=== PATIENT | male | born 1945 | race Caucasian/White ===

== ENCOUNTER 2017-04-06 13:53 | Observation (INO) ==
--- NOTE | 2017-04-06 14:22 | Emergency Department Report ---
Chest Pain HPI - General Chief Complaint: Chest Pain Stated Complaint: cp Time Seen by Provider: 04/06/17 14:13 Source: patient, EMS Mode of arrival: EMS Limitations: no limitations - History of Present Illness HPI narrative: 72 YO WM who presents to ER for chest pain. Patient reports intermittent chest pain for over a week. This episode of chest pain started about 0400 this morning. It has been constant since that time. He describes it as pressure with intermittent sharp pains. He is also short of breath, dizzy, nauseated in association with chest pain. He was diaphoretic early this morning when he woke up with the chest pain. He took nitro x 2 at home which did not help the chest pain. EMS administered Fentanyl 200 micrograms IV en route which did take pain from down to 03/09. MD complaint: chest pain Occurred At: home Onset (ago): hour(s) (8) Time: 0400 Duration: constant Pain location: substernal, left chest Severity scale (1-10): 10 Quality: tightness - Related Data Home Medications Medication Instructions Recorded Confirmed Tamsulosin HCl [Flomax] 0.4 mg PO HS #0 01/15/11 04/06/17 Docusate Sodium [Colace] 100 mg PO BID #0 06/24/14 04/06/17 Pantoprazole Sodium 40 mg PO DAILY #0 06/27/14 04/06/17 Atorvastatin Calcium [Lipitor] 20 mg PO DAILY #0 11/24/14 04/06/17 Fluticasone/Salmeterol [Advair 1 puff ORAL INH RTBID #0 11/24/14 04/06/17 250-50 Diskus] Tiotropium [place] [Spiriva] 1 cap ORAL INH DAILY #0 11/24/14 04/06/17 Trazodone HCl 300 mg PO HS #0 11/24/14 04/06/17 Finasteride 5 mg PO DAILY #0 07/05/15 04/06/17 Sucralfate 1 g PO QID #0 07/05/15 04/06/17 Fluticasone Nasal [place] [Flonase] 2 spray EA NOSTRIL DAILY #0 11/20/15 04/06/17 Loratadine 10 mg PO ACB #0 03/06/16 04/06/17 Nitroglycerin [Nitrostat] 0.4 mg SL Q5MIN PRN #0 03/06/16 04/06/17 Buspirone HCl 20 mg PO BID #0 08/14/16 04/06/17 Meloxicam 15 mg PO DAILY #0 08/14/16 04/06/17 Tramadol HCl 50 mg PO Q6HR PRN #0 08/14/16 04/06/17 Furosemide 40 mg PO BID #0 09/07/16 04/06/17 Potassium Chloride 10 meq PO ACB #0 09/07/16 04/06/17 Albuterol Sulfate 2.5 mg AEROSOL BID 04/06/17 04/06/17 Aspirin [Adult Low Dose Aspirin EC] 81 mg PO DAILY 04/06/17 04/06/17 Doxycycline Monohydrate 100 mg PO BID 04/06/17 04/06/17 [Doxycycline Monohydrate] Ferrous Sulfate 325 mg PO HS 04/06/17 04/06/17 Fluoxetine HCl [Prozac] 80 mg PO DAILY 04/06/17 04/06/17 Gabapentin [Neurontin] 800 mg PO TID 04/06/17 04/06/17 Metformin HCl [Metformin HCl ER] 500 mg PO BID 04/06/17 04/06/17 Allergies Allergy/AdvReac Type Severity Reaction Status Date / Time adhesive Allergy Mild ALLERGIC Verified 04/06/17 14:17 CONTACT DERMATITIS aripiprazole Allergy Unknown HYPOTENSION Verified 04/06/17 14:17 niacin Allergy Unknown Verified 04/06/17 14:17 zolpidem [From Ambien] Allergy Unknown Verified 04/06/17 14:18 Review of Systems Constitutional: Denies: fever, chills, weakness Eyes: Denies: eye pain, eye discharge, vision change ENT: Denies: ear pain Cardiovascular: Reports: as per HPI, chest pain Respiratory: Reports: dyspnea Gastrointestinal: Reports: nausea. Denies: abdominal pain, vomiting, hematemesis Neurological: Denies: headache Endocrine: Reports: fatigue Hematological/Lymphatic: Reports: easy bruising Allergic/Immunologic: Denies: facial swelling, urticaria PFSH Patient Stated Medical History Macular Degeneration Yes Other HEENT Yes: cleft palate Congestive Heart Failure Yes Myocardial Infarction Yes Chronic Obstructive Pulmonary Yes Disease (COPD) Diabetes Mellitus Type 2 Yes Gastroesophageal Reflux Yes Disease Hx Benign Prostatic Yes Hyperplasia Hx Incontinence Yes Other Hematologic Yes: pe Sepsis Yes Depression Yes Hypertension COPD Diabetes mellitus Atrial fibrillation Coronary artery disease Peripheral artery disease Sleep apnea Spinal stenosis Diabetic gastroparesis Depression Aortic aneurysm Chronic back pain Bilateral pulmonary emboli benign prostatic hypertrophy Diabetic neuropathy Surgical History: Back surgery. Cholecystectomy. Hernia repair. Carpal tunnel repair. Bilateral total knee replacement. Peripheral artery stent placement Family History: CAD DM - Social History Smoking status: Former smoker Substance use type: does not use Housing: assisted living facility Household members: none Current occupational status: retired Current residence: Assisted Living Physical Exam - Limitations Limitations: no limitations - General General appearance: alert, in no apparent distress - Normal Exams: Head:: Normocephalic without trauma Eyes:: Pupils are PERRLA w/ EOMI, No scleral icterus Chest/Respirations:: Clear all myas, with good airflow, and symmetry bilaterally Cardiovascular:: Regular rate and rhythm, without murmur or gallop, Pulses 2+ all extremities, capillary refill, <2 seconds all extremities Abdomen:: Bowel sounds positive, soft, non-tender, non-distended, no hepatosplenomegaly, masses or bruits noted Musculoskeletal:: No tenderness, or deformity noted, good range of motion, all extremities Integumentary:: No rashes, hives Neurological:: Patient is alert, and oriented, cranial nerves, motor/sensory/ cerebellar, exams w/o gross deficits, to observation Psychiatric:: Patient exhibits, appropriate attention, emotion and affect Course Course Narrative: No improvement in chest discomfort after NTG x 2 After Fentanyl IV patient reports pain decreased to 3/10 - Consultations Consultation #1: [id number]: Paged Lakeshia Brady with Dr. Rivers Discussed case. Will place patient in OBS to rule out AMI. Medical Telemetry. Vital Signs Pulse Oximetry 94 04/06/17 13:53 Temperature 98.6 F 04/06/17 13:57 Pulse Rate 71 04/06/17 16:09 Respiratory Rate 31 H 04/06/17 16:09 Blood Pressure 126/66 04/06/17 16:09 Pulse Oximetry 95 04/06/17 16:09 Chest Pain - Lab Data Attestation: I reviewed the patient's lab results. Result diagrams: 04/06/17 14:46 04/06/17 14:46 Lab Results 04/06/17 04/06/17 04/06/17 Range/Units 14:46 14:46 14:46 WBC 8.1 (4.5-11.0) T/MM3 RBC 4.74 (4.50-5.90) M/MM3 Hgb 14.8 (13.5-17.5) GM/DL Hct 46.5 (41-53) % MCV 98.1 (80-100) UM3 MCH 31.2 (26-34) UUG MCHC 31.8 (31-37) GM/DL RDW Std Deviation 43.2 (36.9-50.2) FL Plt Count 193 (130-400) T/MM3 MPV 10.4 (9.4-12.4) UM3 Immature Gran % (Auto) 0.4 (0.0-0.5) % Neut % (Auto) 59.1 (33-66) % Lymph % (Auto) 25.6 (23-45) % [place] % (Auto) 9.5 H (0-9.0) % Eos % (Auto) 5.0 H (0-4) % Baso % (Auto) 0.4 (0-2) % Neut # 4.8 (1.8-7.7) T/MM3 Lymph # 2.1 (1-4.8) T/MM3 [place] # 0.8 (0-0.8) T/MM3 Eos # 0.4 (0-0.5) T/MM3 Baso # 0.0 (0-0.2) T/MM3 Abs Immat Gran (auto) 0.03 (0.00-0.03) T/MM3 INR 1.08 (0.99-1.21) Turbidity < 20 (0-20) Sodium 139 (134-144) MEQ/L Potassium 4.0 (3.6-5) MEQ/L Chloride 102 (98-107) MEQ/L Carbon Dioxide 30 (22-30) MEQ/L Anion Gap 7 (5-15) MEQ/L BUN 21.0 H (9-20) MG/DL Creatinine 1.1 (0.8-1.5) MG/DL GFR Calculation 66 BUN/Creatinine Ratio 19 (6-26) RATIO Glucose 143 H (75-110) MG/DL Calculated Osmolality 273 (261-280) MOSM/KG Calcium 9.2 (8.4-10.2) MG/DL Total Bilirubin 0.50 (0.20-1.30) MG/DL Icterus Index < 2 (0-7) AST 43 (17-59) U/L ALT 70 (21-72) U/L Alkaline Phosphatase 87 (38-126) U/L Troponin I 0.039 (0-0.12) ng/ml B-Natriuretic Peptide 204 H (0-175) pg/mL Total Protein 6.4 (6.3-8.2) G/DL Albumin 4.1 (3.5-5.0) G/DL Globulin 2.3 L (2.4-3.6) G/DL Albumin/Globulin Ratio 1.8 (1.1-2.2) RATIO Specimen Hemolysis < 15 (0-25) Ur Collection Type Urine Color (YELLOW) Urine Clarity Urine pH (5.0-8.0) Ur Specific [place] (1.015-1.025) Urine Protein (NEGATIVE) Urine Glucose (UA) (NEGATIVE) Urine Ketones (NEGATIVE) Urine Occult Blood (NEGATIVE) Urine Nitrate (NEGATIVE) Urine Bilirubin (NEGATIVE) Urine Urobilinogen (NORMAL) EU/DL Ur Leukocyte Esterase (NEGATIVE) Urinalysis Comment 04/06/17 Range/Units 15:20 WBC (4.5-11.0) T/MM3 RBC (4.50-5.90) M/MM3 Hgb (13.5-17.5) GM/DL Hct (41-53) % MCV (80-100) UM3 MCH (26-34) UUG MCHC (31-37) GM/DL RDW Std Deviation (36.9-50.2) FL Plt Count (130-400) T/MM3 MPV (9.4-12.4) UM3 Immature Gran % (Auto) (0.0-0.5) % Neut % (Auto) (33-66) % Lymph % (Auto) (23-45) % [place] % (Auto) (0-9.0) % Eos % (Auto) (0-4) % Baso % (Auto) (0-2) % Neut # (1.8-7.7) T/MM3 Lymph # (1-4.8) T/MM3 [place] # (0-0.8) T/MM3 Eos # (0-0.5) T/MM3 Baso # (0-0.2) T/MM3 Abs Immat Gran (auto) (0.00-0.03) T/MM3 INR (0.99-1.21) Turbidity (0-20) Sodium (134-144) MEQ/L Potassium (3.6-5) MEQ/L Chloride (98-107) MEQ/L Carbon Dioxide (22-30) MEQ/L Anion Gap (5-15) MEQ/L BUN (9-20) MG/DL Creatinine (0.8-1.5) MG/DL GFR Calculation BUN/Creatinine Ratio (6-26) RATIO Glucose (75-110) MG/DL Calculated Osmolality (261-280) MOSM/KG Calcium (8.4-10.2) MG/DL Total Bilirubin (0.20-1.30) MG/DL Icterus Index (0-7) AST (17-59) U/L ALT (21-72) U/L Alkaline Phosphatase (38-126) U/L Troponin I (0-0.12) ng/ml B-Natriuretic Peptide (0-175) pg/mL Total Protein (6.3-8.2) G/DL Albumin (3.5-5.0) G/DL Globulin (2.4-3.6) G/DL Albumin/Globulin Ratio (1.1-2.2) RATIO Specimen Hemolysis (0-25) Ur Collection Type Urine, clean catch Urine Color Yellow (YELLOW) Urine Clarity Clear Urine pH 5.5 (5.0-8.0) Ur Specific [place] 1.020 (1.015-1.025) Urine Protein Trace A (NEGATIVE) Urine Glucose (UA) Negative (NEGATIVE) Urine Ketones Trace A (NEGATIVE) Urine Occult Blood Negative (NEGATIVE) Urine Nitrate Negative (NEGATIVE) Urine Bilirubin Negative (NEGATIVE) Urine Urobilinogen 0.2 (NORMAL) EU/DL Ur Leukocyte Esterase Negative (NEGATIVE) Urinalysis Comment Microscopic not ind. - Radiology Data Attestation: I reviewed the patient's radiology results. - EKG Data EKG #1 EKG attestation: Yes: I reviewed and interpreted this EKG. Rate: normal Rhythm: NSR, PVC's [place]/QRS: normal Interpretation: nonspecific ST-T wave changes Disposition Clinical Impression: Chest pain Qualifiers: Chest pain type: unspecified Qualified Code(s): R07.9 - Chest pain, unspecified Disposition: 02 To OBS NM Condition: Improved Prescriptions: No Action Tamsulosin HCl [Flomax] 0.4 mg PO HS #0 Docusate Sodium [Colace] 100 mg PO BID #0 Pantoprazole Sodium 40 mg PO DAILY #0 Trazodone HCl 300 mg PO HS #0 Fluticasone/Salmeterol [Advair 250-50 Diskus] 1 puff ORAL INH RTBID #0 Atorvastatin Calcium [Lipitor] 20 mg PO DAILY #0 Sucralfate 1 g PO QID #0 Loratadine 10 mg PO ACB #0 Tramadol HCl 50 mg PO Q6HR PRN #0 PRN Reason: Pain Meloxicam 15 mg PO DAILY #0 Potassium Chloride 10 meq PO ACB #0 Ferrous Sulfate 325 mg PO HS Doxycycline Monohydrate [Doxycycline Monohydrate] 100 mg PO BID Albuterol Sulfate 2.5 mg AEROSOL BID Fluoxetine HCl [Prozac] 80 mg PO DAILY Tiotropium [place] [Spiriva] 1 cap ORAL INH DAILY #0 Finasteride 5 mg PO DAILY #0 Fluticasone Nasal [place] [Flonase] 2 spray EA NOSTRIL DAILY #0 Nitroglycerin [Nitrostat] 0.4 mg SL Q5MIN PRN #0 PRN Reason: CHEST PAIN Buspirone HCl 20 mg PO BID #0 Furosemide 40 mg PO BID #0 Metformin HCl [Metformin HCl ER] 500 mg PO BID Gabapentin [Neurontin] 800 mg PO TID Aspirin [Adult Low Dose Aspirin EC] 81 mg PO DAILY Referrals: Vasquez Sánchez MD [Family Provider] - Time of Disposition: 15:40 - Seen By: physician
[2017-04-06] MEDS ORDERED: ONDANSETRON 4 MG/2 ML INJECTION IVP ONE (14:25)
[2017-04-06] MEDS ORDERED: FentaNYL 100 MCG/2 ML INJECTION IVP ONE (14:25)
[2017-04-06] MEDS ORDERED: ASPIRIN 81 MG CHEWABLE TABLET PO ONE (14:25)
[2017-04-06] MEDS: NITROGLYCERIN 0.4 MG SUBLINGUAL TABLET SL PRN ×2 (14:44→14:50)
[2017-04-06] MEDS: SALINE FLUSH 10ml SYRINGE IV PRN ×3 (14:50→22:29)
[2017-04-06] MEDS ORDERED: ENOXAPARIN 40 MG/0.4 ML INJECTION SQ ONE (16:42)
[2017-04-06] MEDS ORDERED: TRAMADOL 50 MG TABLET PO PRN (16:42)
[2017-04-06] MEDS ORDERED: NITROGLYCERIN 0.4 MG SUBLINGUAL TABLET SL PRN (16:42)
[2017-04-06 16:45] VITALS: BMI 29.9
[2017-04-06] MEDS: SUCRALFATE 1 GM TABLET PO SCH ×2 (17:13→22:25)
[2017-04-06] MEDS: MORPHINE SULFATE 10 MG SYRINGE IVP PRN ×2 (18:15→22:39)
[2017-04-06] MEDS ORDERED: NON-FORMULARY MEDICATION 1 EACH EACH (Metformin Hcl [Metformin Hcl Er] 500 MG) PO SCH (21:00)
[2017-04-06] MEDS ORDERED: FALL RISK - PHARMACY CONSULT MC PRN (21:04)
[2017-04-06] MEDS ORDERED: TAMSULOSIN 0.4 MG CAPSULE PO SCH (22:00)
[2017-04-06] MEDS ORDERED: FERROUS SULFATE 324 MG TABLET PO SCH (22:00)
[2017-04-06] MEDS ORDERED: TRAZODONE 100 MG TABLET PO SCH (22:00)
[2017-04-06] MEDS: BUSPIRONE 10 MG TABLET PO SCH (22:25)
[2017-04-06] MEDS: DOCUSATE SODIUM 100 MG CAPSULE PO SCH (22:26)
[2017-04-06] MEDS: GABAPENTIN 800 MG TABLET PO SCH (22:27)
[2017-04-06] MEDS: FUROSEMIDE 40 MG TABLET PO SCH (22:43)
[2017-04-06] MEDS: ALBUTEROL 2.5mg/3ml (0.083%) NEB AEROSOL SCH (23:16)
[2017-04-07] MEDS ORDERED: LORATADINE 10 MG TABLET PO SCH (06:30)
[2017-04-07 08:35] VITALS: BP 131/69; PULSE 55; TEMP 96.9; O2SAT 98
[2017-04-07] MEDS ORDERED: FLUTICASONE NASAL SPRAY 50mcg EA NOSTRIL SCH (09:00)
[2017-04-07] MEDS ORDERED: TIOTROPIUM 18mcg/cap HANDIHALER ORAL INH SCH (09:00)
[2017-04-07] MEDS ORDERED: MELOXICAM 15 MG TABLET PO SCH (09:00)
[2017-04-07] MEDS ORDERED: FINASTERIDE 5 MG TABLET PO SCH (09:00)
[2017-04-07] MEDS ORDERED: ASPIRIN *EC* 81 MG TABLET PO SCH (09:00)
[2017-04-07] MEDS ORDERED: FLUoxetine 20 MG CAPSULE PO SCH (09:00)
--- NOTE | 2017-04-07 09:36 | XRay Report ---
Indication: CHEST PAIN PROCEDURE: XR chest 1V: Encounter: Initial Comparison: December 06, 2016 Findings: The lungs are stable in appearance without new focal airspace consolidation. There is no pleural effusion or pneumothorax. The heart size, pulmonary vascularity and mediastinal contours are unchanged. IMPRESSION: Stable appearance of the chest without acute cardiopulmonary disease. .
--- NOTE | 2017-04-07 09:37 | Cardiology History & Physical ---
History of Present Illness Chief complaint: chest pain HPI: Chavez is a 72 year old male who is well known to Dr. Rivers with a history of CAD, dilated cardiomyopathy, aortic ectasia, PAD, HTN, HLD who presented to ED for chest pain. He reports intermittent chest pain for over a week with this episode of chest pain started about 0400 yesterday morning. He described the pain as pressure with intermittent sharp pains. He also reports shortness of breath, dizziness, and nausea in association with chest pain. He reports being diaphoretic early when he woke up with the chest pain. He took nitro x 2 at home which did not help the chest pain. EMS administered Fentanyl 200 micrograms IV en route to the ED which did take pain from 07/09 down to . Chavez was last seen by Dr. Rivers on March 20, 2017 in our office at which time he brought his BP diary with him. His diary had several instances where his BP was lower than ideal and Imdur was discontinued. He was scheduled at that time for a stress test which will take place this 04/11/17. He is examined in his room on Medical. He is currently chest pain free, although he does report having some after arrival to his room last night. He states he was given morphine which relieved the pain. He reports feeling short of air when the pain is present but denies dyspnea at this time. He denies N/V or diaphoresis. He reports he has a frequent productive cough and states he has been using his inhalers as prescribed for his lung disease. Nav gaxiola also reports stools that are more loose than usual but not diarrhea. Otherwise he denies recent illness, no fever, chills, sore throat, or dysuria. Review of Systems - Constitutional Constitutional: Present: fatigue, weakness. Absent: chills, fever(s) - EENMT Eyes: Absent: change in vision Balance: Absent: vertigo Mouth/Throat: Absent: sore throat - Cardiovascular Cardiovascular: Present: chest pain, dyspnea on exertion. Absent: palpitations , syncope Vascular: Absent: pedal edema - Respiratory Respiratory: Present: cough, dyspnea on exertion, excessive phlegm production. Absent: dyspnea - Gastrointestinal Gastrointestinal: Absent: diarrhea, nausea, vomiting - Genitourinary Genitourinary: Absent: dysuria - Musculoskeletal Musculoskeletal: Present: muscle weakness, myalgias - Integumentary/Breasts Integumentary: Absent: rash - Neurological Neurological: Present: dizziness PFSH Patient Stated Medical History Macular Degeneration Yes Other HEENT Yes: cleft palate Coronary artery disease Yes Hypertension Yes Hyperlipidemia Yes Congestive Heart Failure Yes Myocardial Infarction Yes Peripheral vascular disease Yes Chronic Obstructive Pulmonary Yes Disease (COPD) Diabetes Mellitus Type 2 Yes Gastroesophageal Reflux Yes Disease Hx Benign Prostatic Yes Hyperplasia Hx Incontinence Yes: wears a brief Other Hematologic Yes: pe Spinal Stenosis Yes Sepsis Yes Shingles Yes Depression Yes Surgical History: Carotid endarterectomy. Peripheral artery stent placement. Lumbar Back surgery. Cholecystectomy. Hernia repair. Carpal tunnel repair. Bilateral total knee replacement Family History: CAD- Mother and Father - not cause of in either - Social History Smoking status: Former smoker Substance use type: does not use Alcohol intake frequency: does not drink Housing: assisted living facility Household members: none Current residence: Apartment/Private Home Medications Home Medications Medication Instructions Recorded Confirmed Type Tamsulosin HCl [Flomax] 0.4 mg PO HS #0 01/15/11 04/06/17 History Docusate Sodium [Colace] 100 mg PO BID #0 06/24/14 04/06/17 History Pantoprazole Sodium 40 mg PO DAILY #0 06/27/14 04/06/17 History Atorvastatin Calcium [Lipitor] 20 mg PO DAILY #0 11/24/14 04/06/17 History Fluticasone/Salmeterol [Advair 1 puff ORAL INH RTBID #0 11/24/14 04/06/17 History 250-50 Diskus] Tiotropium [place] [Spiriva] 1 cap ORAL INH DAILY #0 11/24/14 04/06/17 History Trazodone HCl 300 mg PO HS #0 11/24/14 04/06/17 History Finasteride 5 mg PO DAILY #0 07/05/15 04/06/17 History Sucralfate 1 g PO QID #0 07/05/15 04/06/17 History Fluticasone Nasal [place] [Flonase] 2 spray EA NOSTRIL DAILY #0 11/20/15 History Loratadine 10 mg PO ACB #0 03/06/16 04/06/17 History Nitroglycerin [Nitrostat] 0.4 mg SL Q5MIN PRN #0 03/06/16 04/06/17 History Buspirone HCl 20 mg PO BID #0 08/14/16 04/06/17 History Meloxicam 15 mg PO DAILY #0 08/14/16 04/06/17 History Tramadol HCl 50 mg PO Q6HR PRN #0 08/14/16 04/06/17 History Furosemide 40 mg PO BID #0 09/07/16 04/06/17 History Potassium Chloride 10 meq PO ACB #0 09/07/16 04/06/17 History Albuterol Sulfate 2.5 mg AEROSOL BID 04/06/17 04/06/17 History Aspirin [Adult Low Dose Aspirin EC] 81 mg PO DAILY 04/06/17 04/06/17 History Doxycycline Monohydrate 100 mg PO BID 04/06/17 04/06/17 History Ferrous Sulfate 325 mg PO HS 04/06/17 04/06/17 History Fluoxetine HCl [Prozac] 80 mg PO DAILY 04/06/17 04/06/17 History Gabapentin [Neurontin] 800 mg PO TID 04/06/17 04/06/17 History Metformin HCl [Metformin HCl ER] 500 mg PO BID 04/06/17 04/06/17 History Allergies Allergy/AdvReac Type Severity Reaction Status Date / Time adhesive Allergy Mild ALLERGIC Verified 04/06/17 14:17 CONTACT DERMATITIS aripiprazole Allergy Unknown HYPOTENSION Verified 04/06/17 14:17 niacin Allergy Unknown Verified 04/06/17 14:17 zolpidem [From Ambien] Allergy Unknown Verified 04/06/17 14:18 Exam Vital signs: Temperature 96.9 F 04/07/17 08:00 Pulse Rate 55 L 04/07/17 08:00 Respiratory Rate 18 04/07/17 08:00 Blood Pressure 131/69 04/07/17 08:00 Pulse Oximetry 98 04/07/17 08:00 Oxygen Delivery Method Nasal Cannula Oxygen Flow Rate 4 - Constitutional no acute distress, obese, cooperative - Routine HEENT Exam ENT: Present: mucous membranes moist - Routine Neck Exam Absent: JVD, carotid bruit - Routine Chest/Breast/Axilla Exam Chest wall: Absent: tenderness - Routine Respiratory Exam Present: CTA bilaterally. Absent: rales, wheezes - Routine Cardiovascular Exam Present: RRR, S1, S2, bradycardia. Absent: JVD - Routine Abdominal Exam Present: soft, normoactive bowel sounds - Routine Extremities Exam Present: no edema - Routine Skin Exam Present: intact - Routine Neurological Exam Present: alert, oriented X3 - Routine Psychiatric Exam Present: normal affect, normal thought process Results 04/07/17 03:17 04/07/17 03:17 Cardiac Enzymes 04/06/17 04/07/17 04/07/17 Range/Units 20:56 03:17 08:42 Troponin I 0.051 0.053 0.044 (0-0.12) ng/ml CBC 04/07/17 Range/Units 03:17 WBC 7.2 (4.5-11.0) T/MM3 RBC 4.53 (4.50-5.90) M/MM3 Hgb 14.2 (13.5-17.5) GM/DL Hct 45.2 (41-53) % Plt Count 168 (130-400) T/MM3 Neut # 3.7 (1.8-7.7) T/MM3 Lymph # 2.2 (1-4.8) T/MM3 [place] # 0.7 (0-0.8) T/MM3 Eos # 0.5 (0-0.5) T/MM3 Baso # 0.0 (0-0.2) T/MM3 Comprehensive Metabolic Panel 04/07/17 Range/Units 03:17 Sodium 141 (134-144) MEQ/L Potassium 3.6 (3.6-5) MEQ/L Chloride 103 (98-107) MEQ/L Carbon Dioxide 31 H (22-30) MEQ/L BUN 23.0 H (9-20) MG/DL Creatinine 1.1 (0.8-1.5) MG/DL Glucose 144 H (75-110) MG/DL Calcium 8.8 (8.4-10.2) MG/DL Intake and Output 04/06/17 04/07/17 04/07/17 22:59 06:59 14:59 Intake Total 170 / 170 360 / 360 Output Total 550 / 550 Balance 170 / 170 -190 / -190 Intake: Oral 170 / 170 360 / 360 Output: Urine 550 / 550 Other: # Incontinent Voids 1 Weight 233 lb 3.985 oz Laboratory Results - last 48 hr 04/06/17 04/06/17 04/06/17 14:46 14:46 14:46 WBC 8.1 RBC 4.74 Hgb 14.8 Hct 46.5 MCV 98.1 MCH 31.2 MCHC 31.8 RDW Std Deviation 43.2 Plt Count 193 MPV 10.4 Immature Gran % (Auto) 0.4 Neut % (Auto) 59.1 Lymph % (Auto) 25.6 [place] % (Auto) 9.5 H Eos % (Auto) 5.0 H Baso % (Auto) 0.4 Neut # 4.8 Lymph # 2.1 [place] # 0.8 Eos # 0.4 Baso # 0.0 Abs Immat Gran (auto) 0.03 INR 1.08 Turbidity < 20 Sodium 139 Potassium 4.0 Chloride 102 Carbon Dioxide 30 Anion Gap 7 BUN 21.0 H Creatinine 1.1 GFR Calculation 66 BUN/Creatinine Ratio 19 Glucose 143 H Calculated Osmolality 273 Calcium 9.2 Total Bilirubin 0.50 Icterus Index < 2 AST 43 ALT 70 Alkaline Phosphatase 87 Troponin I 0.039 B-Natriuretic Peptide 204 H Total Protein 6.4 Albumin 4.1 Globulin 2.3 L Albumin/Globulin Ratio 1.8 Specimen Hemolysis < 15 Ur Collection Type Urine Color Urine Clarity Urine pH Ur Specific [place] Urine Protein Urine Glucose (UA) Urine Ketones Urine Occult Blood Urine Nitrate Urine Bilirubin Urine Urobilinogen Ur Leukocyte Esterase Urinalysis Comment 04/06/17 04/06/17 04/07/17 15:20 20:56 03:17 WBC RBC Hgb Hct MCV MCH MCHC RDW Std Deviation Plt Count MPV Immature Gran % (Auto) Neut % (Auto) Lymph % (Auto) [place] % (Auto) Eos % (Auto) Baso % (Auto) Neut # Lymph # [place] # Eos # Baso # Abs Immat Gran (auto) INR Turbidity < 20 Sodium 141 Potassium 3.6 Chloride 103 Carbon Dioxide 31 H Anion Gap 7 BUN 23.0 H Creatinine 1.1 GFR Calculation 66 BUN/Creatinine Ratio 21 Glucose 144 H Calculated Osmolality 278 Calcium 8.8 Total Bilirubin Icterus Index < 2 AST ALT Alkaline Phosphatase Troponin I 0.051 0.053 B-Natriuretic Peptide Total Protein Albumin Globulin Albumin/Globulin Ratio Specimen Hemolysis < 15 < 15 Ur Collection Type Urine, clean catch Urine Color Yellow Urine Clarity Clear Urine pH 5.5 Ur Specific [place] 1.020 Urine Protein Trace A Urine Glucose (UA) Negative Urine Ketones Trace A Urine Occult Blood Negative Urine Nitrate Negative Urine Bilirubin Negative Urine Urobilinogen 0.2 Ur Leukocyte Esterase Negative Urinalysis Comment Microscopic not ind. 04/07/17 04/07/17 03:17 08:42 WBC 7.2 RBC 4.53 Hgb 14.2 Hct 45.2 MCV 99.8 MCH 31.3 MCHC 31.4 RDW Std Deviation 44.0 Plt Count 168 MPV 10.4 Immature Gran % (Auto) 0.4 Neut % (Auto) 52.0 Lymph % (Auto) 31.0 [place] % (Auto) 9.4 H Eos % (Auto) 6.8 H Baso % (Auto) 0.4 Neut # 3.7 Lymph # 2.2 [place] # 0.7 Eos # 0.5 Baso # 0.0 Abs Immat Gran (auto) 0.03 INR Turbidity Sodium Potassium Chloride Carbon Dioxide Anion Gap BUN Creatinine GFR Calculation BUN/Creatinine Ratio Glucose Calculated Osmolality Calcium Total Bilirubin Icterus Index AST ALT Alkaline Phosphatase Troponin I 0.044 B-Natriuretic Peptide Total Protein Albumin Globulin Albumin/Globulin Ratio Specimen Hemolysis < 15 Ur Collection Type Urine Color Urine Clarity Urine pH Ur Specific [place] Urine Protein Urine Glucose (UA) Urine Ketones Urine Occult Blood Urine Nitrate Urine Bilirubin Urine Urobilinogen Ur Leukocyte Esterase Urinalysis Comment - Imaging and Cardiology EKG results: image reviewed EKG interpretations - EKG EKG results cardiology: sinus rhythm EKG shows: bradycardia - Blocks, axis, hypertrophy, ST abn Repolarization changes or abnormalities: nonspecific abnormality, ST segment, and/or T wave Hospital Course This is a general summary of the patient's hospital course. For more details refer to the complete medical record. Assessment and Plan (1) Precordial pain Problem details: Acute on chronic Status: Acute Anterior chest pressure, denies radiation, associated with SOA, nausea and diaphoresis. Patient was taken off of Imdur at last clinic appointment 03/20/17 due to hypotension. Serial troponin levels were negative, serial EKGs without ischemic changes. Scheduled for a Adenosine stress test on (2) Atherosclerotic heart disease of [place] coronary artery without angina pectoris Status: Chronic Scheduled for a Adenosine stress test on (3) Dilated cardiomyopathy Status: Chronic Chronic, will continue current medical therapy, routine monitoring (4) Aortic ectasia Status: Chronic Chronic, routine monitoring (5) Atherosclerosis of [place] artery of both lower extremities Status: Chronic continue risk management (6) Essential (primary) hypertension Status: Chronic Chronic, will continue current medical therapy, routine monitoring. prevent dehydration (7) Mixed hyperlipidemia Status: Acute Chronic, will continue current medical therapy - Attestation Attestation Narrative: 04/10/17 13:15 Recommendation After examining the patient I agree with the above assessment. I am involved in the formulation of the patient's plan of care. Sepsis Assessment - Evaluation Sepsis screening result: No Definite Risk Addendum entered and electronically signed by Lakeshia Brady APRN 04/07/17 10: 42: I examined the patient and discussed the patient with Dr. Rivers, together we agreed on the patient's plan of care.
[2017-04-07] MEDS: ALBUTEROL 2.5mg/3ml (0.083%) NEB AEROSOL SCH (09:38)
[2017-04-07] MEDS: DOCUSATE SODIUM 100 MG CAPSULE PO SCH (10:07)
[2017-04-07] MEDS: GABAPENTIN 800 MG TABLET PO SCH (10:08)
--- NOTE | 2017-04-07 10:08 | Discharge Summary ---
<Lakeshia Brady - Last Filed: 04/07/17 10:04> Discharge Information Date of admission: 04/06/17 16:16 Attending Physician: Ted Rivers MD Primary care physician: Vasquez Sánchez MD - Discharge Diagnosis (1) Precordial pain Problem Details: Acute on chronic Status: Acute (2) Atherosclerotic heart disease of [place] coronary artery without angina pectoris Status: Chronic (3) Dilated cardiomyopathy Status: Chronic (4) Aortic ectasia Status: Chronic (5) Atherosclerosis of [place] artery of both lower extremities Status: Chronic (6) Essential (primary) hypertension Status: Chronic (7) Mixed hyperlipidemia Status: Acute - Laboratory Labs: 04/07/17 03:17 04/07/17 03:17 History of Present Illness HPI: Chavez is a 72 year old male who is well known to Dr. Rivers with a history of CAD, dilated cardiomyopathy, aortic ectasia, PAD, HTN, HLD who presented to ED for chest pain. He reports intermittent chest pain for over a week with this episode of chest pain started about 0400 yesterday morning. He described the pain as pressure with intermittent sharp pains. He also reports shortness of breath, dizziness, and nausea in association with chest pain. He reports being diaphoretic early when he woke up with the chest pain. He took nitro x 2 at home which did not help the chest pain. EMS administered Fentanyl 200 micrograms IV en route to the ED which did take pain from 10/10 down to 6/ 10. Chavez was last seen by Dr. Rivers on March 20, 2017 in our office at which time he brought his BP diary with him. His diary had several instances where his BP was lower than ideal and Imdur was discontinued. He was scheduled at that time for a stress test which will take place this 04/11/17. He is examined in his room on Medical. He is currently chest pain free, although he does report having some after arrival to his room last night. He states he was given morphine which relieved the pain. He reports feeling short of air when the pain is present but denies dyspnea at this time. He denies N/V or diaphoresis. He reports he has a frequent productive cough and states he has been using his inhalers as prescribed for his lung disease. H e also reports stools that are more loose than usual but not diarrhea. Otherwise he denies recent illness, no fever, chills, sore throat, or dysuria. Hospital Course This is a general summary of the patient's hospital course. For more details refer to the complete medical record. Exam Vital signs: Temperature 96.9 F 04/07/17 08:00 Pulse Rate 55 L 04/07/17 08:00 Respiratory Rate 22 04/07/17 09:39 Blood Pressure 131/69 04/07/17 08:00 Pulse Oximetry 98 04/07/17 09:39 Oxygen Delivery Method Nasal Cannula Oxygen Flow Rate 4 Results 04/07/17 03:17 04/07/17 03:17 Cardiac Enzymes 04/06/17 04/07/17 04/07/17 Range/Units 20:56 03:17 08:42 Troponin I 0.051 0.053 0.044 (0-0.12) ng/ml CBC 04/07/17 Range/Units 03:17 WBC 7.2 (4.5-11.0) T/MM3 RBC 4.53 (4.50-5.90) M/MM3 Hgb 14.2 (13.5-17.5) GM/DL Hct 45.2 (41-53) % Plt Count 168 (130-400) T/MM3 Neut # 3.7 (1.8-7.7) T/MM3 Lymph # 2.2 (1-4.8) T/MM3 [place] # 0.7 (0-0.8) T/MM3 Eos # 0.5 (0-0.5) T/MM3 Baso # 0.0 (0-0.2) T/MM3 Comprehensive Metabolic Panel 04/07/17 Range/Units 03:17 Sodium 141 (134-144) MEQ/L Potassium 3.6 (3.6-5) MEQ/L Chloride 103 (98-107) MEQ/L Carbon Dioxide 31 H (22-30) MEQ/L BUN 23.0 H (9-20) MG/DL Creatinine 1.1 (0.8-1.5) MG/DL Glucose 144 H (75-110) MG/DL Calcium 8.8 (8.4-10.2) MG/DL Intake and Output 04/06/17 04/07/17 04/07/17 22:59 06:59 14:59 Intake Total 170 / 170 360 / 360 Output Total 550 / 550 Balance 170 / 170 -190 / -190 Intake: Oral 170 / 170 360 / 360 Output: Urine 550 / 550 Other: # Incontinent Voids 1 Weight 233 lb 3.985 oz Discharge Plan - Med Rec/Dispo Referrals/Follow Up: Ted Rivers MD [Physician] - 04/11/17 11:30 am Additional Instructions: Adenosine stress test on 04/11/17 at 11:30. If additional chest pain reoccurs, sit down, check your BP and if greater than 120 systolic take SL nitro every 5 minutes up to X3. Prescriptions: Continue Tamsulosin HCl [Flomax] 0.4 mg PO HS #0 Docusate Sodium [Colace] 100 mg PO BID #0 Pantoprazole Sodium 40 mg PO DAILY #0 Trazodone HCl 300 mg PO HS #0 Fluticasone/Salmeterol [Advair 250-50 Diskus] 1 puff ORAL INH RTBID #0 Atorvastatin Calcium [Lipitor] 20 mg PO DAILY #0 Sucralfate 1 g PO QID #0 Loratadine 10 mg PO ACB #0 Tramadol HCl 50 mg PO Q6HR PRN #0 PRN Reason: Pain Meloxicam 15 mg PO DAILY #0 Potassium Chloride 10 meq PO ACB #0 Ferrous Sulfate 325 mg PO HS Doxycycline Monohydrate 100 mg PO BID Albuterol Sulfate 2.5 mg AEROSOL BID Fluoxetine HCl [Prozac] 80 mg PO DAILY Tiotropium [place] [Spiriva] 1 cap ORAL INH DAILY #0 Finasteride 5 mg PO DAILY #0 Fluticasone Nasal [place] [Flonase] 2 spray EA NOSTRIL DAILY #0 Nitroglycerin [Nitrostat] 0.4 mg SL Q5MIN PRN #0 PRN Reason: CHEST PAIN Buspirone HCl 20 mg PO BID #0 Furosemide 40 mg PO BID #0 Metformin HCl [Metformin HCl ER] 500 mg PO BID Gabapentin [Neurontin] 800 mg PO TID Aspirin [Adult Low Dose Aspirin EC] 81 mg PO DAILY - Disposition 01 Discharged Home, Self-Care <Ted Rivers - Last Filed: 04/10/17 13:19> Discharge Information Date of admission: 04/06/17 16:16 Attending Physician: Ted Rivers MD Primary care physician: Vasquez Sánchez MD - Discharge Diagnosis (1) Precordial pain Problem Details: Acute on chronic Status: Acute (2) Atherosclerotic heart disease of [place] coronary artery without angina pectoris Status: Chronic (3) Dilated cardiomyopathy Status: Chronic (4) Aortic ectasia Status: Chronic (5) Atherosclerosis of [place] artery of both lower extremities Status: Chronic (6) Essential (primary) hypertension Status: Chronic (7) Mixed hyperlipidemia Status: Acute - Laboratory Labs: 04/07/17 03:17 04/07/17 03:17 Hospital Course This is a general summary of the patient's hospital course. For more details refer to the complete medical record. Exam Vital signs: Temperature 96.9 F 04/07/17 08:00 Pulse Rate 55 L 04/07/17 08:00 Respiratory Rate 18 04/07/17 10:24 Blood Pressure 131/69 04/07/17 08:00 Pulse Oximetry 98 04/07/17 09:39 Oxygen Delivery Method Nasal Cannula Oxygen Flow Rate 4 Results 04/07/17 03:17 04/07/17 03:17 Discharge Plan - Med Rec/Dispo - Attestation Attestation Narrative: 04/10/17 13:19 Recommendation After examining the patient I agree with the above assessment. I am involved in the formulation of the patient's plan of care.
[2017-04-07] MEDS: FUROSEMIDE 40 MG TABLET PO SCH (10:11)
[2017-04-07 10:25] VITALS: RESP 18
[2017-04-07] MEDS: BUSPIRONE 10 MG TABLET PO SCH (10:27)
[2017-04-07] MEDS ORDERED: SUCRALFATE 1 GM TABLET PO SCH (11:30)
[2017-04-07] MEDS ORDERED: ATORVASTATIN 20 MG TABLET PO SCH (22:00)
[2017-04-08] MEDS ORDERED: PANTOPRAZOLE 40 MG TABLET PO SCH (06:30)
== END 2017-04-07 11:15 | disposition home or self-care (01) ==
LOC: MED 13:53 → ED 13:53 → MED 16:30
PROVIDERS: ADMIT Internal Medicine Cardiovascular Disease; ATTEND Internal Medicine Cardiovascular Disease

== ENCOUNTER 2017-08-23 08:44 | Inpatient (IN) ==
--- NOTE | 2017-08-23 09:10 | Emergency Department Report ---
Fall HPI - General Chief Complaint: Fall Stated Complaint: fell last night found this am Time Seen by Provider: 08/23/17 09:00 - History of Present Illness HPI Narrative: 72-year-old male brought in by EMS. Patient fell yesterday, does not remember. He does recommend having chest pain and getting up to go to the bathroom. At some point he fell after that and when he came to, he had vomited. He was too weak to get up and lay on the floor during the entire night. He does have a little dog that lay beside him during the night. Otherwise denied any blanket to keep warm. He was wearing some hands a T-shirt and says he did not get cold during the night. He normally wears 4 L of oxygen nasal cannula, but required nonrebreather on the way in with EMS to maintain his sats. He is coughing. He states he has had 3 "tiny" heart attacks. Has not had any bypass surgery. He has had stent placement lower torso. - Related Data Home Medications Medication Instructions Recorded Confirmed Tamsulosin HCl [Flomax] 0.4 mg PO HS #0 01/15/11 05/15/17 Docusate Sodium [Colace] 100 mg PO BID #0 06/24/14 05/15/17 Pantoprazole Sodium 40 mg PO DAILY #0 06/27/14 05/15/17 Atorvastatin Calcium [Lipitor] 20 mg PO DAILY #0 11/24/14 05/15/17 Fluticasone/Salmeterol [Advair 1 puff ORAL INH RTBID #0 11/24/14 05/15/17 250-50 Diskus] Tiotropium [place] [Spiriva] 1 cap ORAL INH DAILY #0 11/24/14 05/15/17 Trazodone HCl 300 mg PO HS #0 11/24/14 05/15/17 Finasteride 5 mg PO DAILY #0 07/05/15 05/15/17 Sucralfate 1 g PO QID #0 07/05/15 05/15/17 Fluticasone Nasal [place] [Flonase] 2 spray EA NOSTRIL DAILY #0 11/20/15 05/15/17 Loratadine 10 mg PO ACB #0 03/06/16 05/15/17 Nitroglycerin [Nitrostat] 0.4 mg SL Q5MIN PRN #0 03/06/16 05/15/17 Buspirone HCl 20 mg PO BID #0 08/14/16 05/15/17 Meloxicam 15 mg PO DAILY #0 08/14/16 05/15/17 Tramadol HCl 50 mg PO Q6HR PRN #0 08/14/16 05/15/17 Potassium Chloride 10 meq PO ACB #0 09/07/16 05/15/17 Aspirin [Adult Low Dose Aspirin EC] 81 mg PO DAILY 04/06/17 05/15/17 Doxycycline Monohydrate 100 mg PO BID 04/06/17 05/15/17 Ferrous Sulfate 325 mg PO HS 04/06/17 05/15/17 Fluoxetine HCl [Prozac] 80 mg PO DAILY 04/06/17 05/15/17 Metformin HCl [Metformin HCl ER] 500 mg PO BID 04/06/17 05/15/17 Furosemide [Lasix] 80 mg PO BID 05/15/17 05/15/17 Nystatin 1 applic TOP BID 05/15/17 05/15/17 Previous Rx's Medication Instructions Recorded Albuterol Sulfate 2.5 mg AEROSOL Q4H #30 vial.neb 05/15/17 Azithromycin [Zithromax] 1 tab PO DAILY #4 tab 05/15/17 PredniSONE [Deltasone] 40 mg PO WB #10 tab 05/15/17 Lyrica (pregabalin) 150 mg capsule 150 mg PO BID #60 cap 06/28/17 baclofen 10 mg tablet 10 mg PO Q8H PRN #90 tab 07/09/17 Allergies Allergy/AdvReac Type Severity Reaction Status Date / Time adhesive Allergy Mild ALLERGIC Verified 07/30/17 08:33 CONTACT DERMATITIS aripiprazole Allergy Unknown HYPOTENSION Verified 07/30/17 08:33 niacin Allergy Unknown Verified 07/30/17 08:33 zolpidem [From Ambien] Allergy Unknown Verified 07/30/17 08:33 Review of Systems All systems: reviewed and negative except as stated PFSH Patient Stated Medical History Macular Degeneration Yes Other HEENT Yes: cleft palate Congestive Heart Failure Yes Myocardial Infarction Yes Chronic Obstructive Pulmonary Yes Disease (COPD) Diabetes Mellitus Type 2 Yes Gastroesophageal Reflux Yes Disease Hx Benign Prostatic Yes Hyperplasia Hx Incontinence Yes: wears a brief Other Hematologic Yes: pe Sepsis Yes Shingles Yes Depression Yes Clinic Medical History (Last Reviewed 07/30/17 @ 08:35 by Marily Altamirano RN) Dermatitis (Acute Medical) Unclear etiology. Chest pain (Acute Medical) Precordial pain (Acute Medical) Acute on chronic Atherosclerotic heart disease of [place] coronary artery without angina pectoris (Chronic Medical) Dilated cardiomyopathy (Chronic Medical) Aortic ectasia (Chronic Medical) Atherosclerosis of [place] artery of both lower extremities (Chronic Medical) Essential (primary) hypertension (Chronic Medical) Mixed hyperlipidemia (Acute Medical) Arthritis (Acute Medical) Basal cell carcinoma (Acute Medical) GERD (gastroesophageal reflux disease) (Acute Medical) Neuropathy (Acute Medical) Obstructive sleep apnea (Acute Medical) Spinal stenosis (Acute Medical) COPD exacerbation (Inactive Medical) Surgical History: Carotid endarterectomy. Peripheral artery stent placement. Lumbar Back surgery. Cholecystectomy. Hernia repair. Carpal tunnel repair. Bilateral total knee replacement Family History: Family History (Last Reviewed 07/30/17 @ 08:36 by Marily Altamirano RN) Father Heart disease Mother Heart disease Essential hypertension Hyperlipemia Stroke - Social History Smoking status: Former smoker Substance use type: does not use Physical Exam - Limitations Limitations: no limitations - General General appearance: alert, in no apparent distress (patient is relaxed on the bed, requiring oxygen.) - Normal Exams: Head:: Normocephalic without trauma Cardiovascular:: Regular rate and rhythm, without murmur or gallop, Pulses 2+ all extremities, capillary refill, <2 seconds all extremities Abdomen:: Bowel sounds positive, soft, non-tender, non-distended, no hepatosplenomegaly, masses or bruits noted Neurological:: Patient is alert, and oriented, cranial nerves, motor/sensory/ cerebellar, exams w/o gross deficits, to observation Psychiatric:: Patient exhibits, appropriate attention, emotion and affect - Respiratory Respiratory exam: Present: other (diminished breath sounds bilateral bases) Course Vital Signs Temperature 98.4 F 08/23/17 08:44 Pulse Rate 91 08/23/17 08:44 Respiratory Rate 22 08/23/17 08:44 Blood Pressure 116/56 08/23/17 08:44 Pulse Oximetry 88 L 08/23/17 08:44 Temperature 98.4 F 08/23/17 08:44 Pulse Rate 91 08/23/17 08:44 Respiratory Rate 22 08/23/17 08:44 Blood Pressure 116/56 08/23/17 08:44 Pulse Oximetry 88 L 08/23/17 08:44 Disposition Prescriptions: No Action Tamsulosin HCl [Flomax] 0.4 mg PO HS #0 Docusate Sodium [Colace] 100 mg PO BID #0 Pantoprazole Sodium 40 mg PO DAILY #0 Trazodone HCl 300 mg PO HS #0 Fluticasone/Salmeterol [Advair 250-50 Diskus] 1 puff ORAL INH RTBID #0 Atorvastatin Calcium [Lipitor] 20 mg PO DAILY #0 Sucralfate 1 g PO QID #0 Loratadine 10 mg PO ACB #0 Tramadol HCl 50 mg PO Q6HR PRN #0 PRN Reason: Pain Meloxicam 15 mg PO DAILY #0 Potassium Chloride 10 meq PO ACB #0 Ferrous Sulfate 325 mg PO HS Doxycycline Monohydrate 100 mg PO BID Fluoxetine HCl [Prozac] 80 mg PO DAILY Furosemide [Lasix] 80 mg PO BID Albuterol Sulfate 2.5 mg AEROSOL Q4H #30 vial.neb PredniSONE [Deltasone] 40 mg PO WB #10 tab Tiotropium [place] [Spiriva] 1 cap ORAL INH DAILY #0 Finasteride 5 mg PO DAILY #0 Fluticasone Nasal [place] [Flonase] 2 spray EA NOSTRIL DAILY #0 Nitroglycerin [Nitrostat] 0.4 mg SL Q5MIN PRN #0 PRN Reason: CHEST PAIN Buspirone HCl 20 mg PO BID #0 Metformin HCl [Metformin HCl ER] 500 mg PO BID Aspirin [Adult Low Dose Aspirin EC] 81 mg PO DAILY Nystatin 1 applic TOP BID Azithromycin [Zithromax] 1 tab PO DAILY #4 tab Lyrica (pregabalin) 150 mg capsule 150 mg PO BID #60 cap baclofen 10 mg tablet 10 mg PO Q8H PRN #90 tab PRN Reason: Pain
--- OUTSIDE RECORDS SUMMARY | 2017-08-23 09:15 | External Medical Summary | Referral Summary ---
:1945 Author Organization [facility] Address [address] [place] [address] Care Team Providers Name Role Phone Vasquez Sánchez Primary Care Physician Encounter VC Date(s): 06/10/15 - 06/10/15 [address] [place] [address] Final: SYNCOPE AND COLLAPSE Final: UNSPECIFIED CHEST PAIN Discharge Disposition: 01-Home or Self Care Attending Physician: Ted Rivers MD Admitting Physician: Ted Rivers MD Vital Signs Most recent to oldest [Reference Range]: 1 Heart Rate Monitored [60-100 bpm] 82 bpm (06/10/15 2:05 PM) Respiratory Rate [14-20 br/min] 18 br/min (06/10/15 2:05 PM) Blood Pressure [90-140/60-90 mmHg] 168/95 mmHg *HI* (06/10/15 2:05 PM) Problem List Condition Effective Dates Status Health Status Informant Actinic keratosis Active (disorder)(Confirmed) At low risk for fall Active (finding)(Confirmed) Atrial fibrillation(Confirmed) Active Brachial neuritis or Active radiculitis(Confirmed) Stroke-Lt sided weakness(Confirmed) Active Cervical spondylosis without Active myelopathy (disorder)(Confirmed) COPD (chronic obstructive pulmonary Active disease)(Confirmed) Chronic pain syndrome Active (disorder)(Confirmed) Cardiac dysrhythmia(Confirmed) Active Coronary arteriosclerosis Active (disorder)(Confirmed) Muscle spasm(Confirmed) Active Degeneration of cervical Active intervertebral disc (disorder)(Confirmed) Generalized osteoarthritis Active (disorder)(Confirmed) Depressive disorder(Confirmed) Active Diverticulosis (without mention of Active hemorrhage)(Confirmed) Essential hypertension Active (disorder)(Confirmed) Gastroesophageal reflux disease Active (disorder)(Confirmed) Headaches(Confirmed) Active Hx of emphysema(Confirmed) Active Hypercholesterolemia (pure)(Confirmed) Active Hyperlipidemia(Confirmed) Active Hypertension(Confirmed) Active Inguinal hernia-bilateral(Confirmed) 2007 Active Irregular heart rhythm(Confirmed) Active Irritable bowel syndrome Active (disorder)(Confirmed) Skin cancer(Confirmed) Active ND (myocardial infarction)(Confirmed) 2005 Active Neck pain (finding)(Confirmed) Active Obstructive sleep apnea syndrome Active (disorder)(Confirmed) Osteoarthritis(Confirmed) Active Overweight (finding)(Confirmed) Active Peripheral vascular disease Active (disorder)(Confirmed) Pure hypercholesterolemia Active (disorder)(Confirmed) Restless leg syndrome(Confirmed) Active Rheumatoid arthritis Active (disorder)(Confirmed) Sinusitis(Confirmed) Active Spasm (finding)(Confirmed) Active Spinal stenosis in cervical region Active (disorder)(Confirmed) Tension-type headache Active (disorder)(Confirmed) Urticaria (disorder)(Confirmed) Active Embolism and thrombosis(Confirmed) Active Vertigo as late effect of stroke Active (disorder)(Confirmed) Allergies, Adverse Reactions, Alerts Substance Reaction Severity Status niacin TURN SKIN RED AND MADE SKIN FE Active Tape Welts Active Medications Carafate 1 g oral tablet See Instructions, take 1 tablet by mouth QID, 0 Refill(s) Start Date: 08/18/14 Status: OrderedColace 100 mg oral capsule 1 caps, Oral, BID, as needed for constipation, # 20 caps, 0 Refill(s) Start Date: 08/18/14 Status: OrderedCombivent Respimat See Instructions, inhale 2 puff by inhalation route 4 times every day; my take additional puffs as needed not to exceed 6 purrs in 24hrs, 0 Refill(s) Start Date: 08/18/14 Status: OrderedFlomax 0.4 mg oral capsule 1 caps, Oral, Daily, 0 Refill(s) Start Date: 08/18/14 Status: OrderedFlonase 50 mcg/inh nasal spray 2 sprays, Nasal, Daily, 0 Refill(s) Start Date: 08/18/14 Status: OrderedFLUoxetine 40 mg oral capsule 1 caps, Oral, Daily, 0 Refill(s) Start Date: 08/18/14 Status: Orderedhydrochlorothiazide 12.5 mg oral tablet tabs, Oral, Daily, 0 Refill(s) Start Date: 08/18/14 Status: OrderedKlonoPIN 1 mg oral tablet See Instructions, take 1 tablet (1MG) by oral route every 8 hours when necessary for spasm, 0 Refill(s) Start Date: 08/18/14 Status: OrderedLipitor 20 mg oral tablet 1 tabs, Oral, Daily, 0 Refill(s) Start Date: 08/18/14 Status: Orderedlosartan 100 mg oral tablet 1 tabs, Oral, Daily, 0 Refill(s) Start Date: 08/18/14 Status: OrderedLubricant Eye Drops See Instructions, apply 1 by opthalmic route every day QID, 0 Refill(s) Start Date: 08/18/14 Status: Orderedmetoclopramide 10 mg oral tablet 1 tabs, Oral, QID, # 120 tabs, 2 Refill(s), Pharmacy: [facility] [id number] , 1 tabs Oral QID Start Date: 07/16/14 Status: OrderedNeurontin 300 mg oral capsule See Instructions, take 3 capsule (900MG) by oral route 3 times every day, 0 Refill(s) Start Date: 08/18/14 Status: OrderedNitrostat 0.4 mg sublingual tablet See Instructions, as needed for chest pain, 1 tablet SL as diredted. May repeat Q 10 min x3, 0 Refill(s) Start Date: 08/18/14 Status: OrderedNorco 10 mg-325 mg oral tablet See Instructions, take 2 tablets by mouth QID, 0 Refill(s) Start Date: 08/18/14 Status: OrderedpredniSONE 20 mg oral tablet tabs, Oral, Daily, 0 Refill(s) Start Date: 08/18/14 Status: OrderedPriLOSEC 40 mg oral delayed release capsule See Instructions, take 1 capsule (40MG) by oral route 2 times every day before a meal, 0 Refill(s) Start Date: 08/18/14 Status: OrderedSpiriva 18 mcg inhalation capsule See Instructions, use inhalation 1 cap daily, 0 Refill(s) Start Date: 08/18/14 Status: OrderedtraMADol 50 mg oral tablet See Instructions, take one by mouth QID, 0 Refill(s) Start Date: 08/18/14 Status: OrderedtraZODone 50 mg oral tablet 1 tabs, Oral, Bedtime (once a day), 0 Refill(s) Start Date: 08/18/14 Status: OrderedTums See Instructions, take 1000 milligram by oral route every day, 0 Refill(s) Start Date: 08/18/14 Status: Ordered Results No data available for this section Immunizations Vaccine Date Refusal Reason influenza virus vaccine, live 06/26/12 pneumococcal 23-polyvalent vaccine 06/26/12 zoster vaccine live 06/26/12 Procedures Procedure Date Related Diagnosis Body Site Angiography-lower extremity with stents 2010 Cholecystectomy 2010 Colonoscopy1 2010 Esophagogastroduodenoscopy2 2010 Procedure-cervical translaminar 2010 Procedure-Lt C5-6 C6-7 transforaminal 2010 Procedure-Rt C2-3 MBB 2010 Revascularization-lower extremity 2011 Back fusion-low 2010 Laparotomy-exploratory for pain 2009 Procedure-bilateral femoral stents 2009 Surgery-on nerves in groin 2009 Hernia repair 2008 Cardiac catheterization x33 2006 Carpal tunnel release-bilateral Hemorrhoidectomy Procedure-bilateral knee scopes Procedure-Lt C2-3 MBB Surgery-Rt wrist 1repeat scope in 5 [id number] stents or balloons Social History Social History Type Response Smoking Status Former smoker; Type: Cigarettes; Total pack years: 80 Assessment and Plan No data available for this section
--- OUTSIDE RECORDS SUMMARY | 2017-08-23 09:15 | External Medical Summary | Summary of Care ---
:1945 Author Name Celena Gilbert Address [address] [place] [address] Care Team Providers Name Role Phone Celena Gilbert Unavailable Unavailable Manas Rivera M.D. 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 Refills: 0 Pradip Rivera M.D. 08-May-2016 Active Eye Lubricant Ophthalmic Ointment USE DIRECTED. Refills: 0 Pradip Rivera M.D. 08-May-2016 Active Albuterol Sulfate (2.5 MG/3ML) 0.083% Inhalation Nebulization Solution USE 1 UNIT DOSE IN NEBULIZER EVERY 4 HOURS NEEDED. Refills: 0 Pradip Rivera M.D. 08-May-2016 Active Colace 100 MG Oral Capsule TAKE 1 CAPSULE TWICE DAILY NEEDED. Refills: 0 Pradip Rivera M.D. 08-May-2016 Active Spiriva HandiHaler 18 MCG Inhalation Capsule INHALE CONTENTS OF 1 CAPSULE ONCE DAILY. Refills: 0 Pradip Rivera M.D. 08-May-2016 Active Atorvastatin Calcium 20 MG Oral Tablet TAKE 1 TABLET DAILY DIRECTED. Refills: 0 Pradip Rivera M.D. 08-May-2016 Active TraZODone HCl - 100 MG Oral Tablet TAKE 3 TABLETS AT BEDTIME. Refills: 0 Pradip Rivera M.D. Start 08-May-2016 Active Flonase Allergy Relief 50 MCG/ACT Nasal Suspension USE 1 SPRAY IN EACH NOSTRIL TWICE DAILY. Refills: 0 Kade Rivera M.D.en Manas Start 08-May-2016 Active Advair Diskus 250-50 MCG/DOSE Inhalation Aerosol Powder Breath Activated INHALE 1 PUFF TWICE DAILY. Refills: 0 Pradip Rivera M.D. Start 08-May-2016 Active PROzac 20 MG Oral Capsule TAKE 1 CAPSULE DAILY. Refills: 0 Kade Rivera M.D.en Manas Start 08-May-2016 Active Loratadine 10 MG Oral Tablet TAKE 1 TABLET DAILY NEEDED. Refills: 0 Pradip Rivera M.D. Start 08-May-2016 Active Tamsulosin HCl - 0.4 MG Oral Capsule Take 1 daily Refills: 0 Pradip Rivera M.D. Start 08-May-2016 Active Sucralfate 1 GM Oral Tablet TAKE 1 TABLET 4 TIMES DAILY. Refills: 0 Pradip Rivera M.D. Start 08-May-2016 Active Gralise 600 MG Oral Tablet 1 tablet at bedtime Refills: 0 Pradip Rivera M.D. Start 08-May-2016 Active Finasteride 5 MG Oral Tablet Refills: 0 Kade Rivera M.D.en Manas Start 08-May-2016 Active Pantoprazole Sodium 40 MG Oral Tablet Delayed Release TAKE 1 TABLET DAILY. Refills: 0 Pradip Rivera M.D. Start 08-May-2016 Active Isosorbide Mononitrate ER 30 MG Oral Tablet Extended Release 24 Hour TAKE 1 TABLET DAILY. Refills: 0 Pradip Rivera M.D. Start 08-May-2016 Active [place] 10-325 MG Oral Tablet TAKE 1 TO 2 TABLETS EVERY 4 HOURS NEEDED FOR PAIN. Refills: 0 Pradip Rivera M.D. Start 08-May-2016 Active Nitrostat 0.4 MG Sublingual Tablet Sublingual Refills: 0 Pradip Rivera M.D. Start 08-May-2016 Active BusPIRone HCl - 5 MG Oral Tablet TAKE 1 TABLET TWICE DAILY. Refills: 0 Start 07-Jun-2016 Active Supplies BiPAP 18/8 cm H2O, Permanent use, G47.33, Heated humidity, [id number], mask, headgear, filters, heated tubing, water chamber, chinstrap Quantity: 1 Refills: 0 Ramesh P.A., Celena Start 07-Jun-2016 Active Allergies and Adverse Reactions Name Dates Details Ambien (Allergy) Status: Active Niaspan TBCR (Allergy) Status: Active Adhesive Tape (Allergy) Status: Active Procedures Procedure Dates Details History of Gallbladder Surgery History of Back Surgery History of Colonoscopy Procedures not documented Immunization Name Dates Details Immunizations not documented Family History Mother Name Dates Details Family history of cardiac disorder (V17.49, Z82.49) Status: Active Father Name Dates Details Family history of cardiac disorder (V17.49, Z82.49) Status: Active Social History Name Dates Details - Status: Smoking Status Name Dates Details Former smoker Vital Signs Date Test Result Details 07-Jun-2016 15:38 BP Systolic 138 mm[Hg] Status: Comments: Location: ; Position: BP Diastolic 76 mm[Hg] Status: Comments: Location: ; Position: Heart Rate 75 /min Status: Comments: Location: ; Height 73 in Status: Weight 222 lb Status: Physical Findings 97 Status: Comments: O2 Saturation Body Mass Index Calculated 29.29 kg/m2 Status: Body Surface Area Calculated 2.25 m2 Status: 10-May-2016 14:04 BP Systolic 157 mm[Hg] Status: Comments: Location: ; Position: BP Diastolic 81 mm[Hg] Status: Comments: Location: ; Position: Heart Rate 68 /min Status: Comments: Location: ; Height 73 in Status: Weight 220 lb Status: Physical Findings 96 Status: Comments: O2 Saturation Body Mass Index Calculated 29.03 kg/m2 Status: Body Surface Area Calculated 2.24 m2 Status: Results Date Description Value Details Results not documented Plan of Care Name Dates Details Planned Observations Planned Goals not documented Planned Encounters Appointment; Provider: Pradip Rivera M.D. On 31-Aug-2016 09:45 Interventions Provided Medication ChangesSupplies - Start Instructions Name Dates Details Instructions not documented Encounters Appointment; Pradip Rivera M.D. On 10-May-2016 Encounter Diagnosis: Problem not documented 14:00
--- OUTSIDE RECORDS SUMMARY | 2017-08-23 09:16 | External Medical Summary | Continuity of Care Document ---
:1945 Author Organization Via [facility] in [place] Allergies Active Description Code Type Severity Reaction Onset Reported/ Identified Relationship Clinical to Patient Status Yes niacin NKMA N/A TURN SKIN 01/27/2014 RED AND MADE SKIN FE Yes Tape 403 N/A [id number] 08/18/2014 [id number] gAAg Medications Problems Date Dx Attending Type Code Diagnosis Diagnosed By Coded 06/22/2015 Silvestre GONSALEZ, Reason 780.2 SYNCOPE AND Ted COLLAPSE 06/22/2015 Silvestre GONSALEZ, Final 786.50 UNSPECIFIED CHEST Ted PAIN Procedures Results Encounters ACCT No. Visit Discharge Status Pt. Type Provider Facility Loc./Unit Complaint Date/Time [id number] 06/10/2015 06/10/2015 [facility] 11:40:00 14:11:00 , [facility] on [address]
--- OUTSIDE RECORDS SUMMARY | 2017-08-23 09:16 | External Medical Summary | Summary of Care ---
:1945 Author Name Manas Rivera M.D. Address [address], [place] [id number] Care Team Providers Name Role Phone Manas Rivera M.D. Unavailable Unavailable Vasquez Sánchez [...] USE DIRECTED. Refills: 0 Pradip Rivera M.D. Start 08-May-2016 Active Albuterol Sulfate (2.5 MG/3ML) 0.083% Inhalation Nebulization Solution USE 1 UNIT DOSE IN NEBULIZER EVERY 4 HOURS NEEDED. Refills: 0 Pradip Rivera M.D. Start 08-May-2016 Active Colace 100 MG Oral Capsule [...] IN EACH NOSTRIL TWICE DAILY. Refills: 0 Pradip Rivera M.D. Start 08-May-2016 Active Advair Diskus 250-50 MCG/DOSE Inhalation Aerosol Powder Breath Activated INHALE 1 PUFF TWICE DAILY. Refills: 0 Pradip Rivera M.D. Start 08-May-2016 Active PROzac 20 MG Oral Capsule TAKE 1 CAPSULE DAILY. Refills: 0 Pradip Rivera M.D. Start 08-May-2016 Active Loratadine 10 MG Oral [...] Finasteride 5 MG Oral Tablet Refills: 0 Pradip Rivera M.D. Start 08-May-2016 Active Pantoprazole Sodium 40 MG Oral Tablet Delayed Release TAKE 1 TABLET DAILY. Refills: 0 Pradip Rivera M.D. Start 08-May-2016 Active Isosorbide Mononitrate ER 30 MG Oral Tablet Extended Release 24 Hour TAKE 1 TABLET DAILY. Refills: 0 Pradip Rivera M.D. Start 08-May-2016 Active [place] 10-325 MG Oral Tablet TAKE 1 TO 2 TABLETS EVERY 4 HOURS NEEDED FOR PAIN. Refills: 0 Pradip Rivera M.D. Start 08-May-2016 Active Nitrostat 0.4 MG Sublingual Tablet Sublingual Refills: 0 Pradip Rivera M.D. Start 08-May-2016 Active Allergies and Adverse Reactions Name Dates [...] smoker Vital Signs Date Test Result Details 10-May-2016 14:04 BP Systolic 157 mm[Hg] Status: [...] Details Planned Observations Planned Goals not documented Instructions Name Dates Details Instructions not documented Encounters Appointment; Pradip Rivera M.D. On 10-May-2016 Encounter Diagnosis: Problem not documented 14:00
[2017-08-23] MEDS: SALINE FLUSH 10ml SYRINGE IVF PRN ×4 (09:28→15:47)
--- NOTE | 2017-08-23 09:32 | CT Scan Report ---
Indication: fall PROCEDURE: CT head/brain wo con: Encounter: Initial Comparison: March 17, 2014 Technique: Axial CT images through the head were performed without contrast. Iterative Reconstruction dose reducing technique was utilized. FINDINGS: The ventricles are of normal size, shape, and configuration for the patient's age. There is no evidence of acute intracranial hemorrhage, midline displacement, or mass effect. There are scattered areas of low attenuation in the white matter which most likely represent changes of chronic microvascular ischemia. The CT attenuation of the brain parenchyma is otherwise normal within the cerebellum, brain stem, and cerebral hemispheres. The tympanic cavities and mastoid air cells are free of appreciable disease. There are no definite fractures of the skull base, calvarium, or visualized portion of the midface. IMPRESSION: No CT evidence of acute traumatic intracranial injury. .
--- NOTE | 2017-08-23 09:41 | CT Scan Report ---
Indication: fall PROCEDURE: CT cervical spine wo con: Encounter: Initial Comparison: None Technique: Axial CT images through the cervical spine were performed without contrast. Coronal and sagittal reformatted images were also obtained. Automated Exposure Control and Iterative Reconstruction dose reducing techniques were utilized. FINDINGS: The alignment of the cervical spine is normal. Moderate multilevel degenerative changes are present. There is no evidence of acute fracture or subluxation of the cervical spine. The facet joints are well aligned with preservation of the intervertebral disk and facet joints. The atlantoaxial articulation, dens, and upper cervical spine demonstrate no subluxation. There is no evidence of significant spinal stenosis, foraminal compromise, or significant disk herniation. The paraspinal soft tissues and spinal canal appear unremarkable. IMPRESSION: No acute traumatic abnormality of the cervical spine. .
--- NOTE | 2017-08-23 10:28 | XRay Report ---
INDICATION: fall, dyspnea PROCEDURE: CHEST 2-VIEWS UPRIGHT (PA & LAT) Encounter: Initial COMPARISON: May 15, 2017 FINDINGS: Diffuse airspace consolidation in the right lung. Left lung is grossly clear. No pneumothorax or definite effusion. Motion artifact on the lateral views. Cardiac silhouette remains mild to moderately enlarged. Mediastinal contours are stable. Impression: Severe right-sided consolidation could be due to pneumonia or aspiration. .
[2017-08-23] MEDS ORDERED: CEFTRIAXONE (ER USE ONLY) 1 GM in NS 100 ML IV ONE (10:34)
[2017-08-23] MEDS ORDERED: NS 1,000 ML IV ONE ×2 (10:40→11:20)
[2017-08-23] MEDS ORDERED: SALINE FLUSH 10ml SYRINGE IVF PRN (11:19)
--- NOTE | 2017-08-23 11:39 | History & Physical Report ---
History of Present Illness Date: 08/23/17 Chief complaint: [place]um[place] HPI: Chavez is a 72 -year-old female who resides at home independently. He reports that he got up to use the restroom and had a syncopal episode. He knew he awoke on the floor and he had had emesis. He reports that prior to this incident this morning he was having increased dyspnea and cough with productive sputum yesterday. He call EMS and was brought to the emergency room today for acute evaluation and treatment. He was found to have leukocytosis with a white count 15.9, neutrophils 67% with 19% bandemia. Venous lactate 2.4, electrolytes reviewed. Glucose slightly elevated to 22. Troponin 0.010. Urinalysis is normal. Chest x-ray did reveal severe right-sided consolidation. Given his unwitnessed fall. CT scan of the head and C-spine were found to be negative without acute trauma. Patient is chronically on 4 liters of oxygen by nasal cannula, however, requiring 5 liters in the emergency room. He was found to be hypotensive in the 80s to 90s systolic. Even following initial IV fluid bolus pressures down to 87/56. Given the severity of his illness patient is admitted under the hospitalist services as an inpatient to the ICU. It is expected that his stay will be greater than 2 overnights. Chavez is pleasant, alert and oriented during examination. He does admit to feeling bad yesterday. She has felt more short of breath with a productive cough. He also reports having intermittent episodes of fever and chills. He does wish to be a Full Code Review of Systems All systems PM: 10-point ROS was reviewed, no additional remarkable complaints except - Constitutional Constitutional: Present: chills, fever(s), malaise - Cardiovascular Cardiovascular: Present: chest pain (with coughing) - Respiratory Respiratory: Present: cough, dyspnea [facility] Medical History Atherosclerotic heart disease of [place] coronary artery without angina pectoris Dilated cardiomyopathy Aortic ectasia DM Atherosclerosis of [place] artery of both lower extremities Essential (primary) hypertension Mixed hyperlipidemia Arthritis Basal cell carcinoma GERD (gastroesophageal reflux disease) Neuropathy Obstructive sleep apnea Spinal stenosis COPD- Chronic O2 at 4 liters Depression BPH Reported history of pulmonary emboli Surgical History: Carotid endarterectomy. Peripheral artery stent placement. Lumbar Back surgery. Cholecystectomy. Hernia repair. Carpal tunnel repair. 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 Rivers Medications Home Medications Medication Instructions Recorded Confirmed Type Tamsulosin HCl [Flomax] 0.4 mg PO HS #0 01/15/11 08/23/17 History Docusate Sodium [Colace] 100 mg PO BID #0 06/24/14 08/23/17 History Pantoprazole Sodium 40 mg PO DAILY #0 06/27/14 08/23/17 History Atorvastatin Calcium [Lipitor] 20 mg PO DAILY #0 11/24/14 08/23/17 History Fluticasone/Salmeterol [Advair 1 puff ORAL INH RTBID #0 11/24/14 08/23/17 History 250-50 Diskus] Tiotropium Saxe [Spiriva] 1 cap ORAL INH DAILY #0 11/24/14 08/23/17 History Trazodone HCl 300 mg PO HS #0 11/24/14 08/23/17 History Finasteride 5 mg PO DAILY #0 07/05/15 08/23/17 History Sucralfate 1 g PO QID #0 07/05/15 08/23/17 History Fluticasone Nasal [place] [Flonase] 2 spray EA NOSTRIL DAILY #0 11/20/15 08/23/17 History Nitroglycerin [Nitrostat] 0.4 mg SL Q5MIN PRN #0 03/06/16 08/23/17 History Buspirone HCl 20 mg PO BID #0 08/14/16 08/23/17 History Meloxicam 15 mg PO DAILY #0 08/14/16 08/23/17 History Tramadol HCl 50 mg PO Q6HR PRN #0 08/14/16 08/23/17 History Potassium Chloride 10 meq PO ACB #0 09/07/16 08/23/17 History Aspirin [Adult Low Dose Aspirin EC] 81 mg PO DAILY 04/06/17 08/23/17 History Ferrous Sulfate 325 mg PO HS 04/06/17 08/23/17 History Fluoxetine HCl [Prozac] 80 mg PO DAILY 04/06/17 08/23/17 History Metformin HCl [Metformin HCl ER] 500 mg PO BID 04/06/17 08/23/17 History Furosemide [Lasix] 80 mg PO BID 05/15/17 08/23/17 History Isosorbide Mononitrate ER [Imdur] 30 mg PO DAILY 08/23/17 08/23/17 History Pregabalin Cap [Lyrica] 150 mg PO BID 08/23/17 08/23/17 History Ropinirole [Requip] 0.25 mg PO HS 08/23/17 08/23/17 History Allergies Allergy/AdvReac Type Severity Reaction Status Date / Time adhesive Allergy Mild ALLERGIC Verified 07/30/17 08:33 CONTACT DERMATITIS aripiprazole Allergy Unknown HYPOTENSION Verified 07/30/17 08:33 niacin Allergy Unknown Verified 07/30/17 08:33 zolpidem [From Ambien] Allergy Unknown Verified 07/30/17 08:33 Exam Vital Signs: Temperature 98.4 F 08/23/17 08:44 Pulse Rate 72 08/23/17 11:15 Respiratory Rate 25 H 08/23/17 10:45 Blood Pressure 89/54 08/23/17 11:00 Pulse Oximetry 94 08/23/17 11:15 Telemetry Rhythm: Sinus Rhythm - Constitutional Present: no acute distress, well nourished, well developed - Routine HEENT Exam Eye: Present: EOMI ENT: Present: mucous membranes moist, dentition normal - Routine Respiratory Exam Present: diminished air movement (Right side). Absent: wheezes - Routine Cardiovascular Exam Present: RRR, S1, S2. Absent: murmur - Routine Abdominal Exam Present: soft, normoactive bowel sounds, non distended. Absent: tenderness - Routine Extremities Exam Present: no edema - Routine Skin Exam Present: intact, dry, warm - Routine Neurological Exam Present: alert, oriented X3, CN II-XII intact, moving all extremities - Routine Psychiatric Exam Present: normal affect, cooperative Results - Labs CBC & Chem 7: 08/23/17 08:59 08/23/17 09:50 Assessment and Plan (1) Severe sepsis Current visit: Yes Status: Acute (2) Aspiration pneumonia Current visit: Yes Status: Acute Assessment and Plan: Impression Severe sepsis- manifestations include leukocytosis- 15.9, bandemia- 19%, aspiration pneumonia, elevated venous lactate- 2.4- present on admission Aspiration Pneumonia COPD with chronic O2 use at 2L Type II diabetes Hypertension Hyperlipidemia congestive heart failure. Peripheral vascular disease BPH Plan Admit patient to ICU under the care of Dr. Starks as an inpatient for severe sepsis with aspiration pneumonia. Patient received IV Rocephin in the emergency room. We will also add clindamycin 600 milligrams IV every 8 hours for further antimicrobial coverage of likely aspiration pneumonia. Blood cultures are pending. Will repeat venous lactate at 1335 as per sepsis protocol. Patient has received initial 1500 ml IV fluids while in the emergency room. He has received 1500ML thus far and remains hypotensive with blood pressure 87 systolic. Patient is to receive 30 ML per kilo, which would total 3300 ML total fluids as per protocol. Will then reevaluate status. If he remains hypotensive or has a map less than 65. Will need to consider adding vasopressors. Continue with oxygen as needed to maintain saturations. Schedule Duoneb QID and Pulmicort BID. Monitor Accu-Cheks, continue on carb consistent diet Will need to review home medications as reconciled Continue to monitor cardiac telemetry given cardiac history. Recheck CBC and CMP tomorrow morning to follow blood counts, renal function and electrolytes She does wish to be a full code and this orders written Will discuss further orders and plan of care with attending, at time of discharge medical care will return to [facility] provider [facility] S: Pt reports he has had chest heaviness for two days and it gets worse when coughs. Denies any radiation of the pain or improvement/worsening with activity or rest. A/P: Pt seems clinically improved. Chest pressure likely COPD related, no clear evidence of ischemia on ECG and trop negative. Systolics are better. Unclear etiology for syncope, possible vasovagal vs. CVA event? will do MRI. Pt likely has aspiration event with CXR findings, pneuominits vs. pna, will start unasyn. Will check CPK since pt was down on floor. Imaging for trauma were negative. Will do sepsis tx with IV fluids, abx, repeat lactic acid. Hospital Course Summary Disclaimer: The visit summary below is not to be considered part of the above Progress Note. Hospital Course: 08/23/17 Impression Severe sepsis- manifestations include leukocytosis- 15.9, bandemia- 19%, aspiration pneumonia, elevated venous lactate- 2.4- present on admission Aspiration Pneumonia COPD with chronic O2 use at 2L Type II diabetes Hypertension Hyperlipidemia congestive heart failure. Peripheral vascular disease BPH Plan Admit patient to ICU under the care of Dr. Starks as an inpatient for severe sepsis with aspiration pneumonia. Patient received IV Rocephin in the emergency room. We will also add clindamycin 600 milligrams IV every 8 hours for further antimicrobial coverage of likely aspiration pneumonia. Blood cultures are pending. Will repeat venous lactate at 1335 as per sepsis protocol. Patient has received initial 1500 ml IV fluids while in the emergency room. He has received 1500ML thus far and remains hypotensive with blood pressure 87 systolic. Patient is to receive 30 ML per kilo, which would total 3300 ML total fluids as per protocol. Will then reevaluate status. If he remains hypotensive or has a map less than 65. Will need to consider adding vasopressors. Continue with oxygen as needed to maintain saturations. Schedule Duoneb QID and Pulmicort BID. Monitor Accu-Cheks, continue on carb consistent diet Will need to review home medications as reconciled Continue to monitor cardiac telemetry given cardiac history. Recheck CBC and CMP tomorrow morning to follow blood counts, renal function and electrolytes She does wish to be a full code and this orders written Will discuss further orders and plan of care with attending, at time of discharge medical care will return to primary care provider at the [facility]
[2017-08-23] MEDS ORDERED: CLINDAMYCIN PB 600 MG/50 ML BAG IV SCH (12:00)
[2017-08-23] MEDS ORDERED: ALBUTEROL/IPRATROPIUM 2.5mg-0.5mg/3ml NEB AEROSOL SCH (13:00)
[2017-08-23] MEDS: NS 1,000 ML IV SCH ×2 (13:15→20:08)
[2017-08-23] MEDS: BUDESONIDE INH.SOLN 0.5mg/2ml NEB AEROSOL SCH (13:17)
[2017-08-23] MEDS: AMPICILLIN/SULBACTAM 3 G in NS 100 ML IV SCH ×2 (15:42→20:21)
[2017-08-23] MEDS ORDERED: NITROGLYCERIN 0.4 MG SUBLINGUAL TABLET SL PRN (17:02)
[2017-08-23] MEDS ORDERED: TRAMADOL 50 MG TABLET PO PRN (17:02)
[2017-08-23] MEDS ORDERED: ACETAMINOPHEN 325 MG TABLET PO PRN (17:05)
[2017-08-23] MEDS ORDERED: ONDANSETRON 4 MG/2 ML INJECTION IVP PRN (17:05)
[2017-08-23] MEDS: ALBUTEROL/IPRATROPIUM 2.5mg-0.5mg/3ml NEB AEROSOL SCH ×2 (17:29→21:12)
[2017-08-23] MEDS: ASPIRIN *EC* 81 MG TABLET PO SCH (18:19)
[2017-08-23] MEDS: PANTOPRAZOLE 40 MG TABLET PO SCH (18:19)
[2017-08-23] MEDS: Oxycodone/Acetaminophen 5/325 1 TAB PO PRN (19:09)
[2017-08-23] MEDS: BUSPIRONE 10 MG TABLET PO SCH (20:33)
[2017-08-23] MEDS: ROPINIROLE 0.25 MG TABLET PO SCH (20:33)
[2017-08-23] MEDS: SUCRALFATE 1 GM TABLET PO SCH (20:34)
[2017-08-23] MEDS: TAMSULOSIN 0.4 MG CAPSULE PO SCH (20:34)
[2017-08-23] MEDS: PREGABALIN 150 MG CAPSULE PO SCH (20:34)
[2017-08-23] MEDS: TRAZODONE 100 MG TABLET PO SCH (20:35)
[2017-08-23] MEDS: FLUTICASONE NASAL SPRAY 50mcg EA NOSTRIL SCH (22:01)
[2017-08-24] MEDS: AMPICILLIN/SULBACTAM 3 G in NS 100 ML IV SCH ×4 (02:17→20:23)
[2017-08-24] MEDS: NS 1,000 ML IV SCH ×3 (03:56→20:21)
[2017-08-24] MEDS: PANTOPRAZOLE 40 MG TABLET PO SCH (06:30)
[2017-08-24] MEDS: ALBUTEROL/IPRATROPIUM 2.5mg-0.5mg/3ml NEB AEROSOL SCH ×4 (06:54→20:38)
[2017-08-24] MEDS: BUDESONIDE INH.SOLN 0.5mg/2ml NEB AEROSOL SCH ×2 (06:55→20:38)
[2017-08-24] MEDS: ASPIRIN *EC* 81 MG TABLET PO SCH (08:10)
[2017-08-24] MEDS: FINASTERIDE 5 MG TABLET PO SCH (08:10)
[2017-08-24] MEDS: PREGABALIN 150 MG CAPSULE PO SCH ×2 (08:11→22:07)
[2017-08-24] MEDS: SUCRALFATE 1 GM TABLET PO SCH ×6 (08:11→22:26)
[2017-08-24] MEDS: BUSPIRONE 10 MG TABLET PO SCH ×2 (08:11→22:08)
[2017-08-24] MEDS: FLUTICASONE NASAL SPRAY 50mcg EA NOSTRIL SCH (08:16)
[2017-08-24] MEDS ORDERED: ISOSORBIDE MONONITRATE ER 30 MG TABLET PO SCH (09:00)
[2017-08-24] MEDS: ATORVASTATIN 20 MG TABLET PO SCH ×2 (13:24→22:08)
[2017-08-24] MEDS: FLUoxetine 20 MG CAPSULE PO SCH (13:31)
[2017-08-24] MEDS ORDERED: FUROSEMIDE 100 MG/10 ML INJECTION IVP ONE (14:02)
--- NOTE | 2017-08-24 17:13 | Progress Note ---
- Date 08/24/17 Subjective: Mr. Braxton reports ongoing dyspnea and cough with sputum production. He describes occasional wheezing. Continues to have anterior midsternal chest pain greater with inspiration or cough but denies palpitations. He denied nausea today but indicated nausea 1 and 2 days ago. He reported constipation with his last bowel movement about 3 days ago. He's felt feverish although no fevers have been recorded. He denies lightheadedness reports his appetite is impaired. In addition to the anterior chest wall pain he reports that his legs are achy. Nursing reports deterioration in oxygenation this afternoon. Objective Vital signs: Temperature 97.5 F 08/24/17 04:00 Pulse Rate 72 08/24/17 06:00 Respiratory Rate 32 H 08/24/17 16:10 Blood Pressure 125/60 08/24/17 06:00 Pulse Oximetry 93 08/24/17 16:10 I/O 4444/1160 EXAM General-NAD, alert HEENT-mild right ptosis, conjunctiva clear, oral membranes dry Lungs-respirations are moderately labored, air flow is good and breath sounds are coarse bilaterally especially in the right lung both anteriorly and posteriorly; no wheezing appreciated Cardiac-cardiac rhythm is slightly irregular with S1/S2 present on exam Abd-soft, obese, nontender, diminished bowel sounds Ext-without edema Neuro-MAEW, repositioning himself Psych-calm, cooperative - Height/Weight/BMI: Height 1.85 m Weight 106.1 kg Body Mass Index 30.8 Results - Labs CBC & Chem 7: 08/24/17 04:06 08/24/17 04:06 Labs: Troponin 0.11-0.11-0.089 Liver enzymes unremarkable, albumin 3.1 Microbiology Results: Cultures 2 negative after 1 day - Imaging and Cardiology MRI - head Status: image reviewed by me (no acute pathology, chronic small vessel changes) Assessment and Plan (1) Severe sepsis Current visit: Yes Status: Acute (2) Aspiration pneumonia Current visit: Yes Status: Acute (3) Acute respiratory failure with hypoxia Current visit: Yes Status: Acute Assessment and Plan: Impression Severe sepsis- manifestations include leukocytosis-WBC 15.9, 19% bands, aspiration pneumonia, elevated venous lactate 2.4 on admission Aspiration Pneumonia Acute/chronic hypoxic respiratory failure COPD with chronic O2 use at 2L Type II diabetes Hypertension Hyperlipidemia Congestive heart failure-EF 65% June 2016 by echo. Peripheral vascular disease BPH Plan Continue Unasyn for aspiration pneumonia; leukocytosis improving and bands have resolved. Reassess CXR in a.m. due to increased O2 demand-most recently on 15 L by high flow nasal cannula. Diuresis initiated as patient is typically on 80 mg of Lasix twice daily and fluid balance is positive since admission. BNP in a.m. IV fluids decreased to 50 mL per hour. Discussed BiPAP with patient due to marginal oxygenation-declined at present time. Ongoing anterior chest wall discomfort which may be due to the preceding fall or pneumonia; troponin/EKG unremarkable. Blood pressure/blood sugar stable overnight. Old records reviewed, chest x-ray reviewed-additional images ordered for the morning. Discussed with nursing and RT. DVT Prophylaxis: SCD's, Lovenox GI Prophylaxis: Protonix Resuscitation Status: Full Code Hospital Course Summary Disclaimer: The visit summary below is not to be considered part of the above Progress Note. Hospital Course: 08/23/17 Impression Severe sepsis- manifestations include leukocytosis- 15.9, bandemia- 19%, aspiration pneumonia, elevated venous lactate- 2.4- present on admission Aspiration Pneumonia Acute hypoxic respiratory failure COPD with chronic O2 use at 2L Type II diabetes Hypertension Hyperlipidemia congestive heart failure. Peripheral vascular disease BPH Plan Admit patient to ICU for severe sepsis with aspiration pneumonia. Patient received IV Rocephin in the emergency room. Convert to Unasyn for further antimicrobial coverage of likely aspiration pneumonia. Blood cultures are pending. Will repeat venous lactate at 1335 as per sepsis protocol. Patient has received initial 1500 ml IV fluids while in the emergency room. He has received 1500ML thus far and remains hypotensive with blood pressure 87 systolic. Patient is to receive 30 ML per kilo, which would total 3300 ML total fluids as per protocol. Will then reevaluate status. If he remains hypotensive or has a map less than 65. Will need to consider adding vasopressors. Continue with oxygen as needed to maintain saturations. Schedule Duoneb QID and Pulmicort BID. Continue to monitor cardiac telemetry given cardiac history. At time of discharge medical care will return to primary care provider at the [facility] 08/24/17 Continue Unasyn for aspiration pneumonia; leukocytosis improving and bands have resolved. Reassess CXR in a.m. due to increased O2 demand-most recently on 15 L by high flow nasal cannula. Diuresis initiated as patient is typically on 80 mg of Lasix twice daily and fluid balance is positive since admission. BNP in a.m. IV fluids decreased to 50 mL per hour. Discussed BiPAP with patient due to marginal oxygenation-declined at present time. Ongoing anterior chest wall discomfort which may be due to the preceding fall or pneumonia; troponin/EKG unremarkable. Blood pressure/blood sugar stable overnight.
[2017-08-24] MEDS: TAMSULOSIN 0.4 MG CAPSULE PO SCH (22:07)
[2017-08-24] MEDS: TRAZODONE 100 MG TABLET PO SCH (22:09)
[2017-08-24] MEDS: ROPINIROLE 0.25 MG TABLET PO SCH (22:09)
[2017-08-24] MEDS: Oxycodone/Acetaminophen 5/325 1 TAB PO PRN (22:25)
[2017-08-25] MEDS: AMPICILLIN/SULBACTAM 3 G in NS 100 ML IV SCH ×4 (03:30→20:09)
[2017-08-25] MEDS: SUCRALFATE 1 GM TABLET PO SCH ×5 (04:51→20:13)
[2017-08-25] MEDS: PANTOPRAZOLE 40 MG TABLET PO SCH (06:20)
[2017-08-25] MEDS: NS 1,000 ML IV SCH (06:41)
[2017-08-25] MEDS: ALBUTEROL/IPRATROPIUM 2.5mg-0.5mg/3ml NEB AEROSOL SCH ×4 (07:34→19:31)
[2017-08-25] MEDS: BUDESONIDE INH.SOLN 0.5mg/2ml NEB AEROSOL SCH ×2 (07:34→19:32)
[2017-08-25] MEDS: Oxycodone/Acetaminophen 5/325 1 TAB PO PRN ×3 (07:55→19:15)
[2017-08-25] MEDS: SALINE FLUSH 10ml SYRINGE IVF PRN ×3 (07:57→13:44)
[2017-08-25] MEDS: ENOXAPARIN 40 MG/0.4 ML INJECTION SQ SCH (08:03)
[2017-08-25] MEDS: FINASTERIDE 5 MG TABLET PO SCH (08:03)
[2017-08-25] MEDS: BUSPIRONE 10 MG TABLET PO SCH ×2 (08:03→20:14)
[2017-08-25] MEDS: ASPIRIN *EC* 81 MG TABLET PO SCH (08:03)
[2017-08-25] MEDS: FLUTICASONE NASAL SPRAY 50mcg EA NOSTRIL SCH (08:04)
[2017-08-25] MEDS: PREGABALIN 150 MG CAPSULE PO SCH ×2 (08:04→20:17)
[2017-08-25] MEDS: FLUoxetine 20 MG CAPSULE PO SCH (08:04)
[2017-08-25] MEDS ORDERED: FUROSEMIDE 40 MG/4 ML INJECTION IVP ONE (08:49)
--- NOTE | 2017-08-25 10:19 | Magnetic Resonance Report ---
Indication: syncopal episode, unwitnessed PROCEDURE: MR head/brain wo con: Encounter: Initial Comparisons: Head CT from the same date and brain MRI dated June 24, 2014 Technique: Multiplanar, multisequence, MR imaging of the head without contrast was acquired. FINDINGS: Motion artifact. Mild atrophy. The ventricles are of normal size, shape, and contour for the patient's age. There are small nonspecific punctate areas of T2-weighted and T2 FLAIR weighted signal abnormality in the deep frontoparietal white matter that most likely represent small vessel ischemic disease. This is of a degree that is considered to be normal for the patient's age. The brain stem, cerebellum, and cerebral hemispheres otherwise have a normal morphologic appearance as well as MR signal intensity on all pulse sequences. There are no areas of restricted diffusion on diffusion weighted imaging to suggest an acute infarct. There is no evidence of an intracranial mass lesion, intracranial hemorrhage, or hydrocephalus. The visualized portions of the orbits, calvarium, paranasal sinuses, and skull base demonstrate no significant abnormality. IMPRESSION: Motion artifact. No acute intracranial abnormality. .
--- NOTE | 2017-08-25 10:24 | XRay Report ---
Indication: pneumonia/hypoxia PROCEDURE: XR chest 1V: Encounter: Initial Comparison: August 23, 2017 Findings: Severe consolidation throughout the right lung has slightly worsened. Worsening airspace disease in the left lung with development of mild to moderate edema. Small right pleural effusion is new. No pneumothorax. Heart size and mediastinal contours are stable. Impression: Worsening right-sided pneumonia with new mild to moderate pulmonary edema. .
[2017-08-25] MEDS: MORPHINE SULFATE 2mg INJECTION IVP PRN ×3 (11:29→22:41)
[2017-08-25] MEDS ORDERED: FUROSEMIDE 80 MG TABLET PO SCH ×2 (14:00→21:00)
[2017-08-25] MEDS ORDERED: FALL RISK - PHARMACY CONSULT XX ONE (14:15)
--- NOTE | 2017-08-25 17:30 | Progress Note ---
- Date 08/25/17 Subjective: Mr. Braxton developed increased respiratory distress this am requiring initiation of bipap which he tolerated after low dose lorazepam. With diuresis he improved enough to come off bipap for awhile and try a little liquid at lunch. He describes minimal cough and sputum today but has noted increased abdominal distention without nausea. Reports having a small loose stool earlier today. He denies fever but feels weak and reports his appetite is poor. He is having pain in his right hip and low back. Objective Vital signs: Temperature 98.1 F 08/25/17 07:30 Pulse Rate 88 08/25/17 16:00 Respiratory Rate 36 H 08/25/17 15:20 Blood Pressure 120/71 08/25/17 14:00 Pulse Oximetry 99 -15 L 08/25/17 15:20 I/O 2227/4030 Weight down 3.5 kg from yesterday, ? Accuracy EXAM General-NAD, alert, speaks in 3-4 were phrases HEENT-conjugate gaze, conjunctiva clear, oropharynx is red (patient reports he had a popsicle) Lungs-respirations are mildly labored with crackles at the bases bilaterally posteriorly and faint anterior crackles, no wheezing Cardiac-regular rhythm, S1-S2 Abd-obese, soft, moderately distended, diminished bowel sounds Ext-without edema Neuro-moving extremities spontaneously/symmetrically Psych-calm, cooperative - Rhythm: Normal Sinus Rhythm Height/Weight/BMI: Height 1.85 m Weight 102.5 kg Body Mass Index 30.8 Results - Labs CBC & Chem 7: 08/25/17 04:10 08/25/17 04:10 Labs: ProBNP 4320, procalcitonin 5.77 Accu-Cheks today 117-142-174 Phosphorus 2.3, magnesium 2.1 Microbiology Results: Microbiology 08/24/17 07:45 Sputum, Expectorated Gram Stain - many neutrophils, no epithelial cells, rare gram-positive cocci 08/24/17 07:45 Sputum, Expectorated Sputum Culture - Preliminary Culture Initiated - Results Pending - Imaging and Cardiology Chest x-ray Status: image reviewed by me (pulmonary edema superimposed on worsening right middle/upper lobe pneumonia) Assessment and Plan (1) Severe sepsis Current visit: Yes Status: Acute (2) Aspiration pneumonia Current visit: Yes Status: Acute (3) Acute respiratory failure with hypoxia Current visit: Yes Status: Acute Assessment and Plan: Impression Severe sepsis- manifestations include leukocytosis-WBC 15.9, 19% bands, aspiration pneumonia, elevated venous lactate 2.4 on admission Aspiration Pneumonia Acute/chronic hypoxic respiratory failure Pulmonary edema Syncope vs fall [employer] COPD with chronic O2 use at 2L Type II diabetes Hypertension Hyperlipidemia Acute on chronic preserved LV function Congestive heart failure-EF 65% June 2016 by echo. Peripheral vascular disease BPH Hypophosphatemia Plan Continue Unasyn for aspiration pneumonia; leukocytosis/cough/sputum improving and bands have resolved. CXR today with pulmonary edema-IV fluids discontinued, home diuretic resumed with supplemental IV doses given today. Due to worsening respiratory symptoms and hypoxia BiPAP has been initiated prn. Will consult Dr. Rivers in a.m.; anticipate repeat echo and less done recently in the outpatient setting. Episodic hypertension-likely correlates with respiratory distress. No modifications in blood pressure regimen at this time. Hope to have PT/OT evaluate patient tomorrow if respiratory status permits; multiple medications may be contributing to fall risk. Convert to full liquid diet per patient request with addition of nutritional supplements-too short of breath to eat solid food. Unclear if patient has underlying spinal stenosis-medications suggest neuropathy. Critically ill with combined heart failure and hypoxic respiratory failure due to aspiration pneumonia. Patient advised nursing he would agree to intubation if it became necessary. - Time spent with patient Time with patient PN: other (40 min) Hospital Course Summary Disclaimer: The visit summary below is not to be considered part of the above Progress Note. Hospital Course: 08/23/17 Impression Severe sepsis- manifestations include leukocytosis- 15.9, bandemia- 19%, aspiration pneumonia, elevated venous lactate- 2.4- present on admission Aspiration Pneumonia Acute hypoxic respiratory failure COPD with chronic O2 use at 2L Type II diabetes Hypertension Hyperlipidemia congestive heart failure. Peripheral vascular disease BPH Plan Admit patient to ICU for severe sepsis with aspiration pneumonia. Patient received IV Rocephin in the emergency room. Convert to Unasyn for further antimicrobial coverage of likely aspiration pneumonia. Blood cultures are pending. Will repeat venous lactate at 1335 as per sepsis protocol. Patient has received initial 1500 ml IV fluids while in the emergency room. He has received 1500ML thus far and remains hypotensive with blood pressure 87 systolic. Patient is to receive 30 ML per kilo, which would total 3300 ML total fluids as per protocol. Will then reevaluate status. If he remains hypotensive or has a map less than 65. Will need to consider adding vasopressors. Continue with oxygen as needed to maintain saturations. Schedule Duoneb QID and Pulmicort BID. Continue to monitor cardiac telemetry given cardiac history. At time of discharge medical care will return to primary care provider at the [facility] 08/24/17 Continue Unasyn for aspiration pneumonia; leukocytosis improving and bands have resolved. Reassess CXR in a.m. due to increased O2 demand-most recently on 15 L by high flow nasal cannula. Diuresis initiated as patient is typically on 80 mg of Lasix twice daily and fluid balance is positive since admission. BNP in a.m. IV fluids decreased to 50 mL per hour. Discussed BiPAP with patient due to marginal oxygenation-declined at present time. Ongoing anterior chest wall discomfort which may be due to the preceding fall or pneumonia; troponin/EKG unremarkable. Blood pressure/blood sugar stable overnight. 08/25/17 Continue Unasyn for aspiration pneumonia; leukocytosis/cough/sputum improving and bands have resolved. CXR today with pulmonary edema-IV fluids discontinued, home diuretic resumed with supplemental IV doses given today. Due to worsening respiratory symptoms and hypoxia BiPAP has been initiated. Will consult Dr. Rivers in a.m.; anticipate repeat echo and less done recently in the outpatient setting. Episodic hypertension-likely correlates with respiratory distress. No modifications in blood pressure regimen at this time. Hope to have PT/OT evaluate patient tomorrow if respiratory status permits; multiple medications may be contributing to fall risk. Convert to full liquid diet per patient request with addition of nutritional supplements-too short of breath to eat solid food. Unclear if patient has underlying spinal stenosis-medications suggest neuropathy. Critically ill with combined heart failure and hypoxic respiratory failure due to aspiration pneumonia.
[2017-08-25] MEDS ORDERED: FUROSEMIDE 20 MG/2 ML INJECTION IVP ONE (18:00)
[2017-08-25] MEDS: ROPINIROLE 0.25 MG TABLET PO SCH (20:13)
[2017-08-25] MEDS: ATORVASTATIN 20 MG TABLET PO SCH (20:14)
[2017-08-25] MEDS: TAMSULOSIN 0.4 MG CAPSULE PO SCH (20:16)
[2017-08-25] MEDS: TRAZODONE 100 MG TABLET PO SCH (20:47)
[2017-08-26] MEDS: AMPICILLIN/SULBACTAM 3 G in NS 100 ML IV SCH ×2 (02:09→08:18)
[2017-08-26] MEDS: MORPHINE SULFATE 2mg INJECTION IVP PRN ×3 (03:13→15:20)
[2017-08-26] MEDS: PANTOPRAZOLE 40 MG TABLET PO SCH (05:35)
[2017-08-26] MEDS: SUCRALFATE 1 GM TABLET PO SCH ×4 (05:37→20:06)
[2017-08-26] MEDS ORDERED: FUROSEMIDE 100 MG/10 ML INJECTION IVP SCH ×3 (06:45→21:00)
[2017-08-26] MEDS: ALBUTEROL/IPRATROPIUM 2.5mg-0.5mg/3ml NEB AEROSOL SCH ×5 (07:11→20:37)
[2017-08-26] MEDS: BUDESONIDE INH.SOLN 0.5mg/2ml NEB AEROSOL SCH ×2 (07:11→20:37)
[2017-08-26] MEDS ORDERED: FUROSEMIDE 100 MG/10 ML INJECTION IVP ONE (08:09)
--- NOTE | 2017-08-26 08:21 | XRay Report ---
Indication: DO Procedure: XR chest 1V: Encounter: Subsequent Comparison: 08/25/2017, 08/23/2017 Technique: A single portable AP chest radiograph was obtained. Findings: Lungs and airways: Persistent low lung volumes. Similar asymmetric right hemithorax airspace disease. Unchanged pulmonary congestion/edema. Pleura: No pleural effusion or pneumothorax. Heart and mediastinum: The cardiomediastinal silhouette and great vessels are within normal limits. Osseous structures and soft tissues: No acute osseous abnormality is seen. Impression: No significant interval change with redemonstration of pulmonary edema and asymmetric right ulnar airspace disease which could represent pneumonia in the appropriate clinical setting. The above report concurs with the preliminary report provided by virtual radiologic at 9:11 PM. .
[2017-08-26] MEDS: ASPIRIN *EC* 81 MG TABLET PO SCH (08:32)
[2017-08-26] MEDS: ENOXAPARIN 40 MG/0.4 ML INJECTION SQ SCH (08:33)
[2017-08-26] MEDS: BUSPIRONE 10 MG TABLET PO SCH (08:34)
[2017-08-26] MEDS: FINASTERIDE 5 MG TABLET PO SCH (08:34)
[2017-08-26] MEDS: FLUoxetine 20 MG CAPSULE PO SCH (08:35)
[2017-08-26] MEDS: FLUTICASONE NASAL SPRAY 50mcg EA NOSTRIL SCH (08:35)
[2017-08-26] MEDS: PREGABALIN 150 MG CAPSULE PO SCH (08:36)
--- NOTE | 2017-08-26 09:01 | XRay Report ---
Indication: increased o2 needs Procedure: XR chest 1V: Encounter: Subsequent Comparison: 08/25/2017 Technique: A single portable AP chest radiograph was obtained. Findings: Lungs and airways: Persistent low lung volumes. Allowing for differences in technique, grossly unchanged asymmetric right hemithorax heterogeneous airspace disease. Unchanged pulmonary congestion/edema. Pleura: No pleural effusion or pneumothorax. Heart and mediastinum: The cardiomediastinal silhouette and great vessels appear unchanged. Osseous structures and soft tissues: No acute osseous abnormality is seen. Impression: Allowing for differences in technique, no significant interval change of previously noted asymmetric right pulmonary airspace disease and pulmonary edema. .
--- NOTE | 2017-08-26 11:42 | Cardiology Consult Note ---
<Lakeshia Brady M - Last Filed: 08/26/17 13:24> History of Present Illness Consult date: 08/26/17 Requesting physician: Jaky Duque Consult reason: congestive heart failure Chief complaint: syncope History of present illness: Chavez is a 72 year old male who is well known to Dr. Rivers with a history of CAD, dilated cardiomyopathy, aortic ectasia, PAD, HTN, HLD, COPD and history of DVT and embolism who was brought in by EMS. He reportedly fell and does not remember. He recalled having chest pain and getting up to go to the bathroom. At some point he fell after that and when he came to, he had vomited. He was too weak to get up and lay on the floor during the entire night. He normally wears 4 L of oxygen nasal cannula, but required nonrebreather on the way in with EMS to maintain his sats. He is coughing. He states he has had 3 "tiny" heart attacks. Has not had any bypass surgery. He has had stent placement lower torso. He is examined in CCU where he is on Bi-PAP at 90% and desaturates quickly into the 50s when it is removed. He is restless but keeping the mask on at this time. He does not respond to questions. Review of Systems ROS unobtainable: other (Bi-PAP and respiratory distress) [facility] Patient Stated Medical History Cerebrovascular Accident Yes: 2009? Peripheral Neuropathy Yes: HANDS AND FEET Macular Degeneration Yes Other HEENT Yes: cleft palate Congestive Heart Failure Yes Myocardial Infarction Yes Chronic Obstructive Pulmonary Yes Disease (COPD) Pneumonia Yes: REASON FOR ADMIT Diabetes Mellitus Type 2 Yes Gastroesophageal Reflux Yes Disease Hx Benign Prostatic Yes Hyperplasia Hx Incontinence Yes: wears a brief Other Hematologic Yes: pe Sepsis Yes Shingles Yes Depression Yes Clinic Medical History (Last Reviewed 07/30/17 @ 08:35 by Marily Altamirano RN) Severe sepsis (Acute Medical) Aspiration pneumonia (Acute Medical) Acute respiratory failure with hypoxia (Acute Medical) Dermatitis (Acute Medical) Unclear etiology. Chest pain (Acute Medical) Precordial pain (Acute Medical) Acute on chronic Atherosclerotic heart disease of [place] coronary artery without angina pectoris (Chronic Medical) Dilated cardiomyopathy (Chronic Medical) Aortic ectasia (Chronic Medical) Atherosclerosis of [place] artery of both lower extremities (Chronic Medical) Essential (primary) hypertension (Chronic Medical) Mixed hyperlipidemia (Acute Medical) Arthritis (Acute Medical) Basal cell carcinoma (Acute Medical) GERD (gastroesophageal reflux disease) (Acute Medical) Neuropathy (Acute Medical) Obstructive sleep apnea (Acute Medical) Spinal stenosis (Acute Medical) COPD exacerbation (Inactive Medical) Surgical History: Carotid endarterectomy. Peripheral artery stent placement. Lumbar Back surgery. Cholecystectomy. Hernia repair. Carpal tunnel repair. Bilateral total knee replacement Family History: Family History (Last Reviewed 07/30/17 @ 08:36 by Marily Altamirano RN) Father Heart disease Mother Heart disease Essential hypertension Hyperlipemia Stroke - Social History Smoking status: Former smoker Current residence: Apartment/Private Home Medications Home Medications Medication Instructions Recorded Confirmed Type Tamsulosin HCl [Flomax] 0.4 mg PO HS #0 01/15/11 08/23/17 History Docusate Sodium [Colace] 100 mg PO BID #0 06/24/14 08/23/17 History Pantoprazole Sodium 40 mg PO DAILY #0 06/27/14 08/23/17 History Atorvastatin Calcium [Lipitor] 20 mg PO DAILY #0 11/24/14 08/23/17 History Fluticasone/Salmeterol [Advair 1 puff ORAL INH RTBID #0 11/24/14 08/23/17 History 250-50 Diskus] Tiotropium [place] [Spiriva] 1 cap ORAL INH DAILY #0 11/24/14 08/23/17 History Trazodone HCl 300 mg PO HS #0 11/24/14 08/23/17 History Finasteride 5 mg PO DAILY #0 07/05/15 08/23/17 History Sucralfate 1 g PO QID #0 07/05/15 08/23/17 History Fluticasone Nasal [place] [Flonase] 2 spray EA NOSTRIL DAILY #0 11/20/15 08/23/17 History Nitroglycerin [Nitrostat] 0.4 mg SL Q5MIN PRN #0 03/06/16 08/23/17 History Buspirone HCl 20 mg PO BID #0 08/14/16 08/23/17 History Meloxicam 15 mg PO DAILY #0 08/14/16 08/23/17 History Tramadol HCl 50 mg PO Q6HR PRN #0 08/14/16 08/23/17 History Potassium Chloride 10 meq PO ACB #0 09/07/16 08/23/17 History Aspirin [Adult Low Dose Aspirin EC] 81 mg PO DAILY 04/06/17 08/23/17 History Ferrous Sulfate 325 mg PO HS 04/06/17 08/23/17 History Fluoxetine HCl [Prozac] 80 mg PO DAILY 04/06/17 08/23/17 History Metformin HCl [Metformin HCl ER] 500 mg PO BID 04/06/17 08/23/17 History Furosemide [Lasix] 80 mg PO BID 05/15/17 08/23/17 History Isosorbide Mononitrate ER [Imdur] 30 mg PO DAILY 08/23/17 08/23/17 History Pregabalin Cap [Lyrica] 150 mg PO BID 08/23/17 08/23/17 History Ropinirole [Requip] 0.25 mg PO HS 08/23/17 08/23/17 History Allergies Allergy/AdvReac Type Severity Reaction Status Date / Time adhesive Allergy Mild ALLERGIC Verified 07/30/17 08:33 CONTACT DERMATITIS aripiprazole Allergy Unknown HYPOTENSION Verified 07/30/17 08:33 niacin Allergy Unknown Verified 07/30/17 08:33 zolpidem [From Ambien] Allergy Unknown Verified 07/30/17 08:33 Exam Vital signs: Temperature 99.3 F 08/26/17 02:00 Pulse Rate 84 08/26/17 09:01 Respiratory Rate 32 H 08/26/17 11:09 Blood Pressure 163/72 H 08/26/17 09:01 Pulse Oximetry 92 08/26/17 11:09 - Constitutional moderate distress, cooperative, agitated - Routine HEENT Exam Head: Present: normocephalic ENT: Present: mucous membranes dry - Routine Neck Exam Absent: JVD, carotid bruit - Routine Chest/Breast/Axilla Exam Chest wall: Absent: tenderness - Routine Respiratory Exam Present: decreased breath sounds, crackles (anteriorly). Absent: CTA bilaterally - Routine Cardiovascular Exam Present: RRR, no murmur - Routine Abdominal Exam Present: soft, normoactive bowel sounds - Routine Extremities Exam Present: no edema - Routine Skin Exam Present: intact, dry, warm - Routine Psychiatric Exam Present: normal affect, agitated Results 08/26/17 06:41 08/26/17 06:41 Cardiac Enzymes 08/26/17 08/26/17 Range/Units 06:41 06:48 AST 34 (17-59) U/L Troponin I 0.064 (0-0.12) ng/ml CBC 08/25/17 08/26/17 08/26/17 Range/Units 20:54 01:08 06:41 WBC 11.5 H 11.0 10.6 (4.5-11.0) T/MM3 RBC 3.99 L 3.84 L 3.93 L (4.50-5.90) M/MM3 Hgb 12.3 L 11.5 L 11.9 L (13.5-17.5) GM/DL Hct 39.7 L 38.2 L 39.3 L (41-53) % Plt Count 144 134 135 (130-400) T/MM3 Neut # (Auto) 9.7 H 9.3 H 8.6 H (1.8-7.7) T/MM3 Lymph # (Auto) 0.8 L 0.8 L 0.9 L (1-4.8) T/MM3 [place] # (Auto) 0.7 0.6 0.7 (0-0.8) T/MM3 Eos # (Auto) 0.2 0.2 0.3 (0-0.5) T/MM3 Baso # (Auto) 0.0 0.0 0.0 (0-0.2) T/MM3 Comprehensive Metabolic Panel 08/25/17 08/26/17 08/26/17 Range/Units 20:54 01:08 06:41 Sodium 143 144 147 H (134-144) MEQ/L Potassium 3.3 L 3.2 L 3.3 L (3.6-5) MEQ/L Chloride 103 105 105 (98-107) MEQ/L Carbon Dioxide 32 H 31 H 32 H (22-30) MEQ/L BUN 20.0 20.0 20.0 (9-20) MG/DL Creatinine 1.1 D 1.0 1.0 (0.8-1.5) MG/DL Glucose 186 H 168 H 140 H (75-110) MG/DL Calcium 8.4 8.3 L 8.5 (8.4-10.2) MG/DL AST 34 (17-59) U/L ALT 50 (21-72) U/L Alkaline Phosphatase 53 (38-126) U/L Total Protein 5.6 L (6.3-8.2) G/DL Albumin 3.1 L 2.9 L (3.5-5.0) G/DL Intake and Output 08/25/17 08/26/17 08/26/17 22:59 06:59 14:59 Intake Total 280 / 280 100 / 100 100 / 100 Output Total 1185 / 1185 490 / 490 1110 / 1110 Balance -905 / -905 -390 / -390 -1010 / -1010 Intake: IV 100 / 100 100 / 100 100 / 100 Ampicillin/Sulbactam 3 g 100 / 100 100 / 100 100 / 100 In Ns 100 ml @ 200 mls/hr IV Q6H [facility] Rx#:[id number] Oral 180 / 180 Output: Urine Amount (Catheter) 1185 / 1185 490 / 490 1110 / 1110 Other: Urine Appearance Clear Clear Urine Color Pale Yellow Pale Yellow Weight 225 lb 12.054 oz Patient Weight 08/27/17 06:59 Weight 225 lb 12.054 oz Laboratory Last Values WBC 10.6 T/MM3 (4.5-11.0) 08/26/17 06:41 RBC 3.93 M/MM3 (4.50-5.90) L 08/26/17 06:41 Hgb 11.9 GM/DL (13.5-17.5) L 08/26/17 06:41 Hct 39.3 % (41-53) L 08/26/17 06:41 MCV 100.0 UM3 (80-100) 08/26/17 06:41 MCH 30.3 UUG (26-34) 08/26/17 06:41 MCHC 30.3 GM/DL (31-37) L 08/26/17 06:41 RDW Std Deviation 47.1 FL (36.9-50.2) 08/26/17 06:41 Plt Count 135 T/MM3 (130-400) 08/26/17 06:41 MPV 10.8 UM3 (9.4-12.4) 08/26/17 06:41 Immature Gran % (Auto) 0.6 % (0.0-0.5) H 08/26/17 06:41 Neut % (Auto) 81.3 % (33-66) H 08/26/17 06:41 Lymph % (Auto) 8.4 % (23-45) L 08/26/17 06:41 [place] % (Auto) 6.7 % (0-9.0) 08/26/17 06:41 Eos % (Auto) 2.8 % (0-4) 08/26/17 06:41 Baso % (Auto) 0.2 % (0-2) 08/26/17 06:41 Neut # (Auto) 8.6 T/MM3 (1.8-7.7) H 08/26/17 06:41 Lymph # (Auto) 0.9 T/MM3 (1-4.8) L 08/26/17 06:41 [place] # (Auto) 0.7 T/MM3 (0-0.8) 08/26/17 06:41 Eos # (Auto) 0.3 T/MM3 (0-0.5) 08/26/17 06:41 Baso # (Auto) 0.0 T/MM3 (0-0.2) 08/26/17 06:41 Abs Immat Gran (auto) 0.06 T/MM3 (0.00-0.03) H 08/26/17 06:41 Neutrophils % (Manual) 67.0 % (33-66) H 08/23/17 08:59 Band Neutrophils % 19.0 % (0-6) H D 08/23/17 08:59 Lymphocytes % (Manual) 10.0 % (23-45) L 08/23/17 08:59 Monocytes % (Manual) 4.0 % (0-9.0) 08/23/17 08:59 Neutrophils # (Manual) 10.7 T/MM3 (1.8-7.7) H 08/23/17 08:59 Band Neutrophils # 3.0 T/MM3 08/23/17 08:59 Lymphocytes # (Manual) 1.6 T/MM3 (1-4.8) 08/23/17 08:59 Monocytes # (Manual) 0.6 T/MM3 (0-0.8) 08/23/17 08:59 RBC Morph Comment Normal 08/23/17 08:59 INR 1.05 (0.99-1.21) 08/23/17 08:59 D-Dimer 495 NG/ML (0-230) H 08/26/17 12:12 ABG pH 7.400 (7.350-7.450) 08/25/17 21:00 ABG pCO2 54 MMHG (34-45) H 08/25/17 21:00 ABG pO2 70 MMHG (80-100) L 08/25/17 21:00 ABG HCO3 33 MEQ/L (22-26) H 08/25/17 21:00 ABG Total CO2 35.1 MEQ/L (23-27) H 08/25/17 21:00 ABG O2 Saturation 94.0 % (95.0-98.0) L 08/25/17 21:00 ABG Base Excess 7.1 MMOL/L (-2.0-2.0) H 08/25/17 21:00 VBG pH 7.390 (7.31-7.41) 08/26/17 06:41 VBG pCO2 54 MMHG (40-52) H 08/26/17 06:41 VBG pO2 87 MMHG (40-52) H 08/26/17 06:41 VBG HCO3 33 MEQ/L (22-26) H 08/26/17 06:41 VBG Total CO2 34.4 MEQ/L 08/26/17 06:41 VBG O2 Saturation 97.0 % 08/26/17 06:41 VBG Base Excess 6.3 MMOL/L (-2.0-2.0) H 08/26/17 06:41 O2 Delivery Method Bpap, % 08/26/17 06:41 FiO2 % 90 08/26/17 06:41 Turbidity < 20 (0-20) 08/26/17 06:41 Sodium 147 MEQ/L (134-144) H 08/26/17 06:41 Potassium 3.3 MEQ/L (3.6-5) L 08/26/17 06:41 Chloride 105 MEQ/L (98-107) 08/26/17 06:41 Carbon Dioxide 32 MEQ/L (22-30) H 08/26/17 06:41 Anion Gap 10 MEQ/L (5-15) 08/26/17 06:41 BUN 20.0 MG/DL (9-20) 08/26/17 06:41 Creatinine 1.0 MG/DL (0.8-1.5) 08/26/17 06:41 GFR Calculation 73 08/26/17 06:41 BUN/Creatinine Ratio 20 RATIO (6-26) 08/26/17 06:41 Glucose 140 MG/DL (75-110) H 08/26/17 06:41 Glucometer 168 mg/dL (65-110) 08/26/17 09:56 Calculated Osmolality 287 MOSM/KG (261-280) H 08/26/17 06:41 Calcium 8.5 MG/DL (8.4-10.2) 08/26/17 06:41 Phosphorus 1.9 MG/DL (2.5-4.5) L 08/26/17 01:08 Magnesium 2.1 MG/DL (1.6-2.3) 08/26/17 01:08 Total Bilirubin 0.80 MG/DL (0.20-1.30) 08/26/17 06:41 Icterus Index < 2 (0-7) 08/26/17 06:41 AST 34 U/L (17-59) 08/26/17 06:41 ALT 50 U/L (21-72) 08/26/17 06:41 Alkaline Phosphatase 53 U/L (38-126) 08/26/17 06:41 Creatine Kinase 381 U/L (55-170) H 08/23/17 15:57 Troponin I 0.064 ng/ml (0-0.12) 08/26/17 06:48 B-Natriuretic Peptide 4320 pg/mL (0-175) H 08/25/17 04:10 Total Protein 5.6 G/DL (6.3-8.2) L 08/26/17 06:41 Albumin 2.9 G/DL (3.5-5.0) L 08/26/17 06:41 Globulin 2.7 G/DL (2.4-3.6) 08/26/17 06:41 Albumin/Globulin Ratio 1.1 RATIO (1.1-2.2) 08/26/17 06:41 Plasma Lactate 1.4 MMOL/L (0.6-2.2) 08/26/17 10:59 Procalcitonin 5.77 NG/ML H* 08/25/17 04:10 Specimen Hemolysis < 15 (0-25) 08/26/17 06:48 Ur Collection Type Urine, clean catch 08/23/17 10:28 Urine Color Yellow (YELLOW) 08/23/17 10:28 Urine Clarity Clear 08/23/17 10:28 Urine pH 8.0 (5.0-8.0) 08/23/17 10:28 Ur Specific [place] 1.010 (1.015-1.025) L 08/23/17 10:28 Urine Protein Trace (NEGATIVE) A 08/23/17 10:28 Urine Glucose (UA) Negative (NEGATIVE) 08/23/17 10:28 Urine Ketones Negative (NEGATIVE) 08/23/17 10:28 Urine Occult Blood Negative (NEGATIVE) 08/23/17 10:28 Urine Nitrate Negative (NEGATIVE) 08/23/17 10:28 Urine Bilirubin Negative (NEGATIVE) 08/23/17 10:28 Urine Urobilinogen 1.0 EU/DL (NORMAL) 08/23/17 10:28 Ur Leukocyte Esterase Negative (NEGATIVE) 08/23/17 10:28 Urinalysis Comment Microscopic not ind. 08/23/17 10:28 - Imaging and Cardiology Echo: pending Imaging & Cardiology Narrative: Date of Exam: 08/26/17 Ordering Provider: Jaky Duque MD Type of Exam(s): XR chest 1V Reason for Exam(s): increased o2 needs Indication: increased o2 needs Procedure: XR chest 1V: Encounter: Subsequent Comparison: 08/25/2017 Technique: A single portable AP chest radiograph was obtained. Findings: Lungs and airways: Persistent low lung volumes. Allowing for differences in technique, grossly unchanged asymmetric right hemithorax heterogeneous airspace disease. Unchanged pulmonary congestion/edema. Pleura: No pleural effusion or pneumothorax. Heart and mediastinum: The cardiomediastinal silhouette and great vessels appear unchanged. Osseous structures and soft tissues: No acute osseous abnormality is seen. Impression: Allowing for differences in technique, no significant interval change of previously noted asymmetric right pulmonary airspace disease and pulmonary edema. 08/26/17 12:10 EKG interpretations - EKG EKG results cardiology: sinus rhythm - NV, pacemaker, normal Myocardial infarction: septal NV (acute or recent) Assessment and Plan - Assessment and Plan (1) Severe sepsis Status: Acute per attending (2) Aspiration pneumonia Status: Acute per attending (3) Acute respiratory failure with hypoxia Status: Acute Check D Dimer 495 - CTA to rule out pulmonary emboli (4) Atherosclerotic heart disease of [place] coronary artery without angina pectoris Status: Chronic (5) Dilated cardiomyopathy Status: Chronic (6) Aortic ectasia Status: Chronic (7) Atherosclerosis of [place] artery of both lower extremities Status: Chronic (8) Essential (primary) hypertension Status: Chronic (9) Mixed hyperlipidemia Status: Chronic (10) Acute on chronic diastolic (congestive) heart failure Status: Acute Diuresing well with essentially no improvement in hypoxia Hospital Course Summary Disclaimer: The visit summary below is not to be considered part of the above Progress Note. Hospital Course: 08/23/17 Impression Severe sepsis- manifestations include leukocytosis- 15.9, bandemia- 19%, aspiration pneumonia, elevated venous lactate- 2.4- present on admission Aspiration Pneumonia Acute hypoxic respiratory failure COPD with chronic O2 use at 2L Type II diabetes Hypertension Hyperlipidemia congestive heart failure. Peripheral vascular disease BPH Plan Admit patient to ICU for severe sepsis with aspiration pneumonia. Patient received IV Rocephin in the emergency room. Convert to Unasyn for further antimicrobial coverage of likely aspiration pneumonia. Blood cultures are pending. Will repeat venous lactate at 1335 as per sepsis protocol. Patient has received initial 1500 ml IV fluids while in the emergency room. He has received 1500ML thus far and remains hypotensive with blood pressure 87 systolic. Patient is to receive 30 ML per kilo, which would total 3300 ML total fluids as per protocol. Will then reevaluate status. If he remains hypotensive or has a map less than 65. Will need to consider adding vasopressors. Continue with oxygen as needed to maintain saturations. Schedule Duoneb QID and Pulmicort BID. Continue to monitor cardiac telemetry given cardiac history. At time of discharge medical care will return to primary care provider at the [facility] 08/24/17 Continue Unasyn for aspiration pneumonia; leukocytosis improving and bands have resolved. Reassess CXR in a.m. due to increased O2 demand-most recently on 15 L by high flow nasal cannula. Diuresis initiated as patient is typically on 80 mg of Lasix twice daily and fluid balance is positive since admission. BNP in a.m. IV fluids decreased to 50 mL per hour. Discussed BiPAP with patient due to marginal oxygenation-declined at present time. Ongoing anterior chest wall discomfort which may be due to the preceding fall or pneumonia; troponin/EKG unremarkable. Blood pressure/blood sugar stable overnight. 08/25/17 Continue Unasyn for aspiration pneumonia; leukocytosis/cough/sputum improving and bands have resolved. CXR today with pulmonary edema-IV fluids discontinued, home diuretic resumed with supplemental IV doses given today. Due to worsening respiratory symptoms and hypoxia BiPAP has been initiated. Will consult Dr. Rivers in a.m.; anticipate repeat echo and less done recently in the outpatient setting. Episodic hypertension-likely correlates with respiratory distress. No modifications in blood pressure regimen at this time. Hope to have PT/OT evaluate patient tomorrow if respiratory status permits; multiple medications may be contributing to fall risk. Convert to full liquid diet per patient request with addition of nutritional supplements-too short of breath to eat solid food. Unclear if patient has underlying spinal stenosis-medications suggest neuropathy. Critically ill with combined heart failure and hypoxic respiratory failure due to aspiration pneumonia. <Dionisio Madrid - Last Filed: 08/29/17 16:08> Exam Vital signs: Results 08/29/17 04:47 08/29/17 04:47 Hospital Course Summary Disclaimer: The visit summary below is not to be considered part of the above Progress Note. <Ted Rivers - Last Filed: 08/30/17 13:09> [facility] Patient Stated Medical History Cerebrovascular Accident Yes: 2009? Peripheral Neuropathy Yes: HANDS AND FEET Macular Degeneration Yes Other HEENT Yes: cleft palate Congestive Heart Failure Yes Myocardial Infarction Yes Chronic Obstructive Pulmonary Yes Disease (COPD) Pneumonia Yes: REASON FOR ADMIT Diabetes Mellitus Type 2 Yes Gastroesophageal Reflux Yes Disease Hx Benign Prostatic Yes Hyperplasia Hx Incontinence Yes: wears a brief Other Hematologic Yes: pe Sepsis Yes Shingles Yes Depression Yes Clinic Medical History (Last Reviewed 07/30/17 @ 08:35 by Marily Altamirano RN) Severe sepsis (Acute Medical) Aspiration pneumonia (Acute Medical) Acute respiratory failure with hypoxia (Acute Medical) Acute on chronic diastolic (congestive) heart failure (Acute Medical) COPD (chronic obstructive pulmonary disease) (Acute Medical) Dermatitis (Acute Medical) Unclear etiology. Chest pain (Acute Medical) Precordial pain (Acute Medical) Acute on chronic Atherosclerotic heart disease of [place] coronary artery without angina pectoris (Chronic Medical) Dilated cardiomyopathy (Chronic Medical) Aortic ectasia (Chronic Medical) Atherosclerosis of [place] artery of both lower extremities (Chronic Medical) Essential (primary) hypertension (Chronic Medical) Mixed hyperlipidemia (Chronic Medical) Arthritis (Acute Medical) Basal cell carcinoma (Acute Medical) GERD (gastroesophageal reflux disease) (Acute Medical) Neuropathy (Acute Medical) Obstructive sleep apnea (Acute Medical) Spinal stenosis (Acute Medical) COPD exacerbation (Inactive Medical) Family History: Family History (Last Reviewed 07/30/17 @ 08:36 by Marily Altamirano RN) Father Heart disease Mother Heart disease Essential hypertension Hyperlipemia Stroke Exam Vital signs: Temperature 98.1 F 08/29/17 15:45 Pulse Rate 0 L 08/29/17 18:27 Respiratory Rate 0 L 08/29/17 18:27 Blood Pressure 0/0 08/29/17 18:27 Pulse Oximetry 0 L 08/29/17 18:27 Results 08/29/17 04:47 08/29/17 04:47 Intake and Output 08/29/17 08/30/17 08/30/17 22:59 06:59 14:59 Intake Total 590.772 / 590.772 Output Total 50 / 50 Balance 540.772 / 540.772 Intake: IV 390.772 / 390.772 Cefazolin 1 g In Ns 100 100 / 100 ml @ 200 mls/hr IV Q8HR [facility] Rx#:[id number] FentaNYL 1,000 mcg In Ns 38.25 / 38.25 100 ml @ Per Protocol IV .Q0M PRN Rx#:[id number] Levofloxacin Pb 750 mg In 150 / 150 150 ml @ 100 mls/hr IV Q24H [facility] Rx#:[id number] POTASSIUM PHOSPHATE (mMol 68 / 68 ) 30 mmol In D5w 500 ml @ 17 mls/hr IV .Q24H [facility] Rx#:[id number] Propofol 1,000 mg In 100 34.522 / 34.522 ml @ 5 MCG/KG/MIN 3.09 mls/hr IV .Q24H [facility] Rx#: [id number] Intake, Gastric Tube 200 / 200 Irrigant Amount Left Nare 200 / 200 Output: Urine Amount (Catheter) 50 / 50 Assessment and Plan - Attestation Attestation Narrative: 08/30/17 13:08 Recommendation After examining the patient I agree with the above assessment. I am involved in the formulation of the patient's plan of care. - Assessment and Plan (1) Atherosclerotic heart disease of [place] coronary artery without angina pectoris Status: Chronic (2) Dilated cardiomyopathy Status: Chronic (3) Aortic ectasia Status: Chronic (4) Atherosclerosis of [place] artery of both lower extremities Status: Chronic (5) Essential (primary) hypertension Status: Chronic (6) Mixed hyperlipidemia Status: Chronic (7) Severe sepsis Status: Acute (8) Aspiration pneumonia Status: Acute (9) Acute respiratory failure with hypoxia Status: Acute (10) Acute on chronic diastolic (congestive) heart failure Status: Acute Hospital Course Summary Disclaimer: The visit summary below is not to be considered part of the above Progress Note.
[2017-08-26] MEDS ORDERED: POTASSIUM PHOSPHATE IV SCH (12:00)
[2017-08-26] MEDS ORDERED: D5W IV SCH (12:00)
[2017-08-26] MEDS ORDERED: VANCOMYCIN - PHARMACY CONSULT MC ONE (13:19)
[2017-08-26] MEDS ORDERED: NS 100 ML ONE (13:28)
[2017-08-26] MEDS ORDERED: SALINE FLUSH 10ml SYRINGE ONE (13:28)
[2017-08-26] MEDS ORDERED: IOHEXOL 350mg/ml 75ml INJECTION ONE (13:28)
--- NOTE | 2017-08-26 13:31 | Progress Note ---
- Date 08/26/17 Subjective: Mr. Braxton continued to have poor oxygenation overnight requiring BiPAP with 90% supplemental oxygen. He diuresed well with net negative fluid balance yesterday. Nursing reported patient pulled BiPAP and his Pedroza catheter occasionally overnight although that is not the case this morning and he has been texting and messaging on Facebook while on BiPAP. He reports minimal sputum , ongoing anterior chest pain/discomfort, nausea, and a bowel movement yesterday. He is not aware of fever but low-grade temperature was reported overnight by staff. He desaturates quickly when BiPAP is off for short periods despite use of high flow nasal cannula. Objective Vital signs: Temperature 99.3 F 08/26/17 02:00 Pulse Rate 109 H 08/26/17 12:00 Respiratory Rate 32 H 08/26/17 11:09 Blood Pressure 163/72 H 08/26/17 09:01 Pulse Oximetry 92-BiPAP 95% O2 08/26/17 11:09 I/O 1166/3200 minimal change in weight from yesterday -0.1 kg EXAM General-mild respiratory distress on BiPAP, some mumbled speech with mask on- appropriate responses HEENT-conjugate gaze, EOMI, sclera anicteric Lungs-upper anterior breath sounds clear, decreased breath sounds laterally/ bases Cardiac-regular rhythm, S1-S2 Abd-soft, moderately distended, nontender, diminished bowel sounds Ext-without edema Neuro-moves all extremities spontaneously Psych-calm at time of my exam, cooperative with testing Musculoskeletal-tender on palpation anterior chest wall and lower-lateral right ribs - Rhythm: Normal Sinus Rhythm Height/Weight/BMI: Height 1.85 m Weight 102.4 kg Body Mass Index 30.8 Results - Labs CBC & Chem 7: 08/26/17 06:41 08/26/17 06:41 Labs: Differential unremarkable d-dimer 495 Phosphorus 1.9 overnight, magnesium 2.1, albumin 2.9 Troponin 0.64 Lactic acid 1.1-0.9-1.4 Microbiology Results: Microbiology 08/24/17 07:45 Sputum, Expectorated Gram Stain -many neutrophils, rare gram- positive cocci 08/24/17 07:45 Sputum, Expectorated Sputum Culture - light growth, Gram Negative Hector - ABG Interpretation Attestation: I reviewed and interpreted this ABG. (compensated hypercarbia with marked hypoxia) ABG results: 08/25/17 08/26/17 21:00 06:41 ABG pH 7.400 ABG pCO2 54 H ABG pO2 70 L ABG HCO3 33 H ABG Total CO2 35.1 H ABG O2 Saturation 94.0 L ABG Base Excess 7.1 H VBG pH 7.390 VBG pCO2 54 H VBG pO2 87 H VBG HCO3 33 H VBG Total CO2 34.4 VBG O2 Saturation 97.0 VBG Base Excess 6.3 H - Imaging and Cardiology Chest x-ray Status: image reviewed by me (appropriate ET tube placement, right greater than left infiltrate/edema) Assessment and Plan (1) Acute respiratory failure with hypoxia Current visit: Yes Status: Acute (2) Severe sepsis Current visit: Yes Status: Acute (3) Aspiration pneumonia Current visit: Yes Status: Acute Assessment and Plan: Impression Severe sepsis- manifestations include leukocytosis-WBC 15.9, 19% bands, aspiration pneumonia, elevated venous lactate 2.4 on admission Aspiration Pneumonia with sputum plugging Acute/chronic hypoxic respiratory failure Post intubation hypotension Pulmonary edema-possible Syncope vs fall COO COPD with chronic O2 use at 2L Type II diabetes Hypertension Hyperlipidemia Acute on chronic preserved LV function Congestive heart failure-EF 65% June 2016 by echo. Peripheral vascular disease BPH Hypophosphatemia Plan Persistent/worsening hypoxia overnight requiring increased FiO2 to 100% on BiPAP. PCO2 unchanged but patient fatiguing by exam. Decision made early afternoon to intubate patient when it became necessary to increase expiratory pressure with BiPAP in an attempt to improve oxygen saturation despite FiO2 of 100%. Intubated by anesthesia at bedside-thick sputum plugs present in upper airway. Dr. Madrid consulted for assistance managing ventilator. Hypertonic saline added to breathing treatments, will require frequent suctioning. Antibiotics expanded for healthcare associated coverage due to severity of illness although patient lives privately. Reculture sputum. Cardiology consulted due to heart failure/?syncope. Modest elevation d-dimer-for CTA when able to do so. Hx PE-brother only aware of a single prior event Postintubation blood pressures low-fluid balance negative over the past 48 hours , fluid boluses being administered now. Lasix dose decreased. Critically ill due to progressive respiratory failure-extensive time spent in ICU addressing patient's deteriorating status and in consultation with family/ consultants/nursing. Brother Villa Braxton's patients DPOA.; Full code. 1hr 35 minutes spent with patient through the day DVT Prophylaxis: Lovenox GI Prophylaxis: Protonix Resuscitation Status: Full Code - Time spent with patient Time with patient PN: other (95) Hospital Course Summary Disclaimer: The visit summary below is not to be considered part of the above Progress Note. Hospital Course: 08/23/17 Impression Severe sepsis- manifestations include leukocytosis- 15.9, bandemia- 19%, aspiration pneumonia, elevated venous lactate- 2.4- present on admission Aspiration Pneumonia Acute hypoxic respiratory failure COPD with chronic O2 use at 2L Type II diabetes Hypertension Hyperlipidemia congestive heart failure. Peripheral vascular disease BPH Plan Admit patient to ICU for severe sepsis with aspiration pneumonia. Patient received IV Rocephin in the emergency room. Convert to Unasyn for further antimicrobial coverage of likely aspiration pneumonia. Blood cultures are pending. Will repeat venous lactate at 1335 as per sepsis protocol. Patient has received initial 1500 ml IV fluids while in the emergency room. He has received 1500ML thus far and remains hypotensive with blood pressure 87 systolic. Patient is to receive 30 ML per kilo, which would total 3300 ML total fluids as per protocol. Will then reevaluate status. If he remains hypotensive or has a map less than 65. Will need to consider adding vasopressors. Continue with oxygen as needed to maintain saturations. Schedule Duoneb QID and Pulmicort BID. Continue to monitor cardiac telemetry given cardiac history. At time of discharge medical care will return to primary care provider at the [facility] 08/24/17 Continue Unasyn for aspiration pneumonia; leukocytosis improving and bands have resolved. Reassess CXR in a.m. due to increased O2 demand-most recently on 15 L by high flow nasal cannula. Diuresis initiated as patient is typically on 80 mg of Lasix twice daily and fluid balance is positive since admission. BNP in a.m. IV fluids decreased to 50 mL per hour. Discussed BiPAP with patient due to marginal oxygenation-declined at present time. Ongoing anterior chest wall discomfort which may be due to the preceding fall or pneumonia; troponin/EKG unremarkable. Blood pressure/blood sugar stable overnight. 08/25/17 Continue Unasyn for aspiration pneumonia; leukocytosis/cough/sputum improving and bands have resolved. CXR today with pulmonary edema-IV fluids discontinued, home diuretic resumed with supplemental IV doses given today. Due to worsening respiratory symptoms and hypoxia BiPAP has been initiated. Will consult Dr. Rivers in a.m.; anticipate repeat echo and less done recently in the outpatient setting. Episodic hypertension-likely correlates with respiratory distress. No modifications in blood pressure regimen at this time. Hope to have PT/OT evaluate patient tomorrow if respiratory status permits; multiple medications may be contributing to fall risk. Convert to full liquid diet per patient request with addition of nutritional supplements-too short of breath to eat solid food. Unclear if patient has underlying spinal stenosis-medications suggest neuropathy. Critically ill with combined heart failure and hypoxic respiratory failure due to aspiration pneumonia. 08/26/17 Persistent/worsening hypoxia overnight requiring increased FiO2 to 100% on BiPAP. PCO2 unchanged but patient fatiguing by exam. Decision made early afternoon to intubate patient when it became necessary to increase expiratory pressure with BiPAP in an attempt to improve oxygen saturation despite FiO2 of 100%. Intubated by anesthesia at bedside-thick sputum plugs present in upper airway. Dr. Madrid consulted for assistance managing ventilator. Hypertonic saline added to breathing treatments, will require frequent suctioning. Antibiotics expanded for healthcare associated coverage due to severity of illness although patient lives privately. Reculture sputum. Cardiology consulted due to heart failure/?syncope. Modest elevation d-dimer-for CTA when able to do so. Hx PE-brother only aware of a single prior event Postintubation blood pressures low-fluid balance negative over the past 48 hours , fluid boluses being administered now. Lasix dose decreased.
[2017-08-26] MEDS ORDERED: SODIUM CL 3% INHAL.SOLN 15ml NEB AEROSOL ONE (14:26)
[2017-08-26] MEDS ORDERED: SODIUM CL 3% INHAL.SOLN 15ml NEB AEROSOL PRN (14:29)
--- NOTE | 2017-08-26 14:49 | XRay Report ---
Indication: post-intubation/respiratory distress Procedure: XR chest 1V: Encounter: Subsequent Comparison: Prior chest radiograph of the same day Technique: A single portable AP chest radiograph was obtained. Findings: Life support devices: Interval intubation with the endotracheal tube tip 5 cm above the [place]. Lungs and airways: Persistent low lung volumes. Unchanged heterogeneous right hemithorax airspace disease. Persistent vascular congestion/edema. Pleura: No pleural effusion or pneumothorax. Heart and mediastinum: The cardiomediastinal silhouette and great vessels appear unchanged. Osseous structures and soft tissues: No acute osseous abnormality is seen. Impression: Interval intubation with the endotracheal tube tip 5 cm above the clinton. .
--- NOTE | 2017-08-26 15:00 | Pulmonology Consult Note ---
History of Present Illness Consult date: 08/26/17 Requesting physician: Jaky Duque Reason for consult: other (Respiratory Failure) Chief complaint: SOB, cough History of present illness: This is a 72 yo male who resides at home. Has a Hx of DVT/PE, HFpEF, JOE, COPD on 4L per NC. Currently intubated and information received from chart and staff. Apparently the day of admit he went to the restroom and sustained a fall possibly secondary to a syncopal episode. He woke later that day and was noted with emesis. According to the H&P he had reports of increased dyspnea and cough with productive sputum. He called EMS and was brought to the emergency room and was noted to have leukocytosis WBC 15.9 with 19% bandemia. Venous lactate 2.4, Troponin 0.010, UA normal. CXR noted Right sided consolidation, CT head negative. In the ER he was noted to be hypoxic and requiring O2 at 5 liters, was also hypotensive with SBP 80-90's and received IVF bolus. He was started on Unasyn for likely aspiration pneumonia. Over the weekend his CXR became worse with increase infiltrates on R with questionable pulmonary edema and was up 2L. Was started on IV diuresis without improvement. He has continued to have increased O2 needs requiring continuous bipap today. Unfortunately even on bipap he was hypoxic on full support. Secondary to his hypoxic respiratory failure he was intubated and abx broadened for HCAP. Currently on Ac/Pc f16, Ip 15, peep 10, Fio2 100%. We have been consulted for his respiratory failure and appreciate the consult. Review of Systems ROS unobtainable: due to endotracheal tube [facility] Patient Stated Medical History Cerebrovascular Accident Yes: 2009? Peripheral Neuropathy Yes: HANDS AND FEET Macular Degeneration Yes Other HEENT Yes: cleft palate Congestive Heart Failure Yes Myocardial Infarction Yes Chronic Obstructive Pulmonary Yes Disease (COPD) Pneumonia Yes: REASON FOR ADMIT Diabetes Mellitus Type 2 Yes Gastroesophageal Reflux Yes Disease Hx Benign Prostatic Yes Hyperplasia Hx Incontinence Yes: wears a brief Other Hematologic Yes: pe Sepsis Yes Shingles Yes Depression Yes Clinic Medical History (Last Reviewed 07/30/17 @ 08:35 by Marily Altamirano RN) Severe sepsis (Acute Medical) Aspiration pneumonia (Acute Medical) Acute respiratory failure with hypoxia (Acute Medical) Acute on chronic diastolic (congestive) heart failure (Acute Medical) Dermatitis (Acute Medical) Unclear etiology. 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 Peripheral artery stent placement. Lumbar Back surgery. Cholecystectomy. Hernia repair. Carpal tunnel repair. Bilateral total knee replacement Family History: Family History (Last Reviewed 07/30/17 @ 08:36 by Marily Altamirano RN) Father Heart disease Mother Heart disease Essential hypertension Hyperlipemia Stroke - Social History Smoking status: Former smoker Current residence: Apartment/Private Home Medications Home Medications Medication Instructions Recorded Confirmed Type Tamsulosin HCl [Flomax] 0.4 mg PO HS #0 01/15/11 08/23/17 History Docusate Sodium [Colace] 100 mg PO BID #0 06/24/14 08/23/17 History Pantoprazole Sodium 40 mg PO DAILY #0 06/27/14 08/23/17 History Atorvastatin Calcium [Lipitor] 20 mg PO DAILY #0 11/24/14 08/23/17 History Fluticasone/Salmeterol [Advair 1 puff ORAL INH RTBID #0 11/24/14 08/23/17 History 250-50 Diskus] Tiotropium [place] [Spiriva] 1 cap ORAL INH DAILY #0 11/24/14 08/23/17 History Trazodone HCl 300 mg PO HS #0 11/24/14 08/23/17 History Finasteride 5 mg PO DAILY #0 07/05/15 08/23/17 History Sucralfate 1 g PO QID #0 07/05/15 08/23/17 History Fluticasone Nasal [place] [Flonase] 2 spray EA NOSTRIL DAILY #0 11/20/15 08/23/17 History Nitroglycerin [Nitrostat] 0.4 mg SL Q5MIN PRN #0 03/06/16 08/23/17 History Buspirone HCl 20 mg PO BID #0 08/14/16 08/23/17 History Meloxicam 15 mg PO DAILY #0 08/14/16 08/23/17 History Tramadol HCl 50 mg PO Q6HR PRN #0 08/14/16 08/23/17 History Potassium Chloride 10 meq PO ACB #0 09/07/16 08/23/17 History Aspirin [Adult Low Dose Aspirin EC] 81 mg PO DAILY 04/06/17 08/23/17 History Ferrous Sulfate 325 mg PO HS 04/06/17 08/23/17 History Fluoxetine HCl [Prozac] 80 mg PO DAILY 04/06/17 08/23/17 History Metformin HCl [Metformin HCl ER] 500 mg PO BID 04/06/17 08/23/17 History Furosemide [Lasix] 80 mg PO BID 05/15/17 08/23/17 History Isosorbide Mononitrate ER [Imdur] 30 mg PO DAILY 08/23/17 08/23/17 History Pregabalin Cap [Lyrica] 150 mg PO BID 08/23/17 08/23/17 History Ropinirole [Requip] 0.25 mg PO HS 08/23/17 08/23/17 History Allergies Allergy/AdvReac Type Severity Reaction Status Date / Time adhesive Allergy Mild ALLERGIC Verified 07/30/17 08:33 CONTACT DERMATITIS aripiprazole Allergy Unknown HYPOTENSION Verified 07/30/17 08:33 niacin Allergy Unknown Verified 07/30/17 08:33 zolpidem [From Ambien] Allergy Unknown Verified 07/30/17 08:33 Exam Vital signs: Temperature 99.3 F 08/26/17 02:00 Pulse Rate 109 H 08/26/17 12:00 Respiratory Rate 32 H 08/26/17 11:09 Blood Pressure 163/72 H 08/26/17 09:01 Pulse Oximetry 92 08/26/17 11:09 - Constitutional well developed, average body habitus, other Comments: sedated - Routine HEENT Exam Head: Present: normocephalic, atraumatic ENT: Present: mucous membranes moist Comments: ETT - Routine Neck Exam Present: supple, full ROM, trachea midline - Routine Respiratory Exam Present: rhonchi, wheezes Comments: faint wheezes - Routine Cardiovascular Exam Present: RRR, S1, S2, no murmur - Routine Abdominal Exam Present: soft, non tender Comments: hypoactive - Routine Extremities Exam Present: no edema, full ROM Comments: ROM passive - Routine Back/Spine/Pelvis Exam Back/Spine: Present: full ROM - Routine Skin Exam Present: intact, dry - Routine Neurological Exam sedated - Routine Psychiatric Exam Present: unable to assess Results - Laboratory Findings CBC and BMP: 08/26/17 06:41 08/26/17 06:41 ABG ABG pH 7.420 (7.350-7.450) 08/26/17 13:31 ABG pCO2 53 MMHG (34-45) H 08/26/17 13:31 ABG pO2 55 MMHG (80-100) L 08/26/17 13:31 ABG O2 Saturation 89.0 % (95.0-98.0) L 08/26/17 13:31 PT/INR, D-dimer INR 1.05 (0.99-1.21) 08/23/17 08:59 D-Dimer 495 NG/ML (0-230) H 08/26/17 12:12 Abnormal lab findings: Abnormal Labs 08/23/17 08/23/17 08/24/17 15:57 15:57 04:06 WBC 12.9 H RBC 4.01 L Hgb 12.1 L D Hct 40.1 L D MCHC 30.2 L Plt Count 124 L Immature Gran % (Auto) Neut % (Auto) 82.4 H Lymph % (Auto) 9.6 L Neut # (Auto) 10.6 H Lymph # (Auto) Abs Immat Gran (auto) D-Dimer ABG pCO2 ABG pO2 ABG HCO3 ABG Total CO2 ABG O2 Saturation ABG Base Excess VBG pCO2 VBG pO2 VBG HCO3 VBG Base Excess Sodium Potassium Chloride Carbon Dioxide Glucose Calculated Osmolality Calcium Phosphorus Creatine Kinase 381 H B-Natriuretic Peptide Total Protein Albumin Plasma Lactate 2.3 H Procalcitonin 08/24/17 08/25/17 08/25/17 04:06 04:10 04:10 WBC RBC 3.93 L Hgb 11.9 L Hct 39.2 L MCHC 30.4 L Plt Count 117 L Immature Gran % (Auto) Neut % (Auto) 82.8 H Lymph % (Auto) 9.0 L Neut # (Auto) 8.9 H Lymph # (Auto) Abs Immat Gran (auto) 0.04 H D-Dimer ABG pCO2 ABG pO2 ABG HCO3 ABG Total CO2 ABG O2 Saturation ABG Base Excess VBG pCO2 VBG pO2 VBG HCO3 VBG Base Excess Sodium 146 H Potassium Chloride 110 H 109 H Carbon Dioxide Glucose 139 H 133 H Calculated Osmolality 281 H 285 H Calcium 8.3 L 8.3 L Phosphorus 2.3 L Creatine Kinase B-Natriuretic Peptide 4320 H Total Protein 5.9 L Albumin 3.1 L 3.1 L Plasma Lactate Procalcitonin 08/25/17 08/25/17 08/25/17 04:10 20:54 20:54 WBC 11.5 H RBC 3.99 L Hgb 12.3 L Hct 39.7 L MCHC Plt Count Immature Gran % (Auto) Neut % (Auto) 84.4 H Lymph % (Auto) 7.1 L Neut # (Auto) 9.7 H Lymph # (Auto) 0.8 L Abs Immat Gran (auto) 0.05 H D-Dimer ABG pCO2 ABG pO2 ABG HCO3 ABG Total CO2 ABG O2 Saturation ABG Base Excess VBG pCO2 VBG pO2 VBG HCO3 VBG Base Excess Sodium Potassium 3.3 L Chloride Carbon Dioxide 32 H Glucose 186 H Calculated Osmolality 283 H Calcium Phosphorus Creatine Kinase B-Natriuretic Peptide Total Protein Albumin Plasma Lactate Procalcitonin 5.77 H* 08/25/17 08/26/17 08/26/17 21:00 01:08 01:08 WBC RBC 3.84 L Hgb 11.5 L Hct 38.2 L MCHC 30.1 L Plt Count Immature Gran % (Auto) Neut % (Auto) 84.9 H Lymph % (Auto) 7.5 L Neut # (Auto) 9.3 H Lymph # (Auto) 0.8 L Abs Immat Gran (auto) 0.04 H D-Dimer ABG pCO2 54 H ABG pO2 70 L ABG HCO3 33 H ABG Total CO2 35.1 H ABG O2 Saturation 94.0 L ABG Base Excess 7.1 H VBG pCO2 VBG pO2 VBG HCO3 VBG Base Excess Sodium Potassium 3.2 L Chloride Carbon Dioxide 31 H Glucose 168 H Calculated Osmolality 284 H Calcium 8.3 L Phosphorus 1.9 L Creatine Kinase B-Natriuretic Peptide Total Protein Albumin 3.1 L Plasma Lactate Procalcitonin 08/26/17 08/26/17 08/26/17 06:41 06:41 06:41 WBC RBC 3.93 L Hgb 11.9 L Hct 39.3 L MCHC 30.3 L Plt Count Immature Gran % (Auto) 0.6 H Neut % (Auto) 81.3 H Lymph % (Auto) 8.4 L Neut # (Auto) 8.6 H Lymph # (Auto) 0.9 L Abs Immat Gran (auto) 0.06 H D-Dimer ABG pCO2 ABG pO2 ABG HCO3 ABG Total CO2 ABG O2 Saturation ABG Base Excess VBG pCO2 54 H VBG pO2 87 H VBG HCO3 33 H VBG Base Excess 6.3 H Sodium 147 H Potassium 3.3 L Chloride Carbon Dioxide 32 H Glucose 140 H Calculated Osmolality 287 H Calcium Phosphorus Creatine Kinase B-Natriuretic Peptide Total Protein 5.6 L Albumin 2.9 L Plasma Lactate Procalcitonin 08/26/17 08/26/17 12:12 13:31 WBC RBC Hgb Hct MCHC Plt Count Immature Gran % (Auto) Neut % (Auto) Lymph % (Auto) Neut # (Auto) Lymph # (Auto) Abs Immat Gran (auto) D-Dimer 495 H ABG pCO2 53 H ABG pO2 55 L ABG HCO3 34 H ABG Total CO2 36.0 H ABG O2 Saturation 89.0 L ABG Base Excess 8.4 H VBG pCO2 VBG pO2 VBG HCO3 VBG Base Excess Sodium Potassium Chloride Carbon Dioxide Glucose Calculated Osmolality Calcium Phosphorus Creatine Kinase B-Natriuretic Peptide Total Protein Albumin Plasma Lactate Procalcitonin - Diagnostic Findings Chest x-ray: image reviewed (CXR still with bilateral interstitial infiltrates with RLL consolidation) Assessment and Plan - Assessment and Plan Acute on Chronic Hypoxic Respiratory Failure Aspiration Pneumonia w/sepsis COPD A/C Diastolic HF Plan: Pt currently on vent Ac/Pc f16, Ip 15, peep 10, Fio2 100%, sats 88-90%, will increase peep to 12, sedated from intubation but starting to get agitated. Will start fentanyl gtt with prn versed. Currently WBC normal, afebrile, CXR worse with RLL consolidation and bilateral interstitial infiltrates. Procal yest 5.77 , primary changed from unasyn to cefepime, levaquin and vanco. Currently getting lasix 80 with good UOP -1800ml/24hr. On BT's with pulmicort BID, a/a QID , 3% QID prn, will switch to a/a q4hr and make 3% schedule, slight wheezing noted, could add solumedrol. Will get daily CXR and follow closely. - Time Spent With Patient Total time spent is greater than 50% in coordination of care (as documented) at patient's floor/unit and/or counseling patient: 25 - 35 minutes
[2017-08-26] MEDS: CEFEPIME 1 GM in NS 100 ML IV SCH ×2 (15:05→20:02)
[2017-08-26] MEDS: NS IV PRN ×2 (15:38→23:49)
[2017-08-26] MEDS: FENTANYL IV PRN ×2 (15:38→23:49)
[2017-08-26] MEDS: LEVOFLOXACIN PB 750 MG/150 ML BAG IV SCH (15:46)
[2017-08-26] MEDS: MIDAZOLAM 2mg/2ml INJECTION IVP PRN ×2 (16:03→23:39)
[2017-08-26] MEDS ORDERED: SODIUM CL 3% INHAL.SOLN 15ml NEB AEROSOL SCH (17:00)
[2017-08-26] MEDS ORDERED: SUCCINYLCHOLINE 20mg/mL 10mL INJECTION IVP ONE (17:13)
[2017-08-26] MEDS ORDERED: PROPOFOL 200 MG/20 ML INJECTION IVP ONE (17:13)
--- NOTE | 2017-08-26 17:45 | Pharmacy Consult-Antibiotics ---
Pharmacy Consult-Vancomycin - Laboratory Information WBC 10.6 T/MM3 (4.5-11.0) 08/26/17 06:41 BUN 20.0 MG/DL (9-20) 08/26/17 06:41 Creatinine 1.0 MG/DL (0.8-1.5) 08/26/17 06:41 Procalcitonin 5.77 NG/ML H* 08/25/17 04:10 - Consult Information 72 y.o. M started on Vancomycin protocol, Cefepime and Levaquin empirically for sepsis coverage. goal trough range= 15 to 20 mcg/ml Vancomycin 2,000 mg IV x 1 dose, then 1,500 mg IV q12h. Pharmacy will monitor and adjust as needed. Thank you, Renea Mcclure [facility]
[2017-08-26] MEDS ORDERED: NOREPINEPHRINE DRIP 4,000 MCG in NS 250ml 250 ML IV PRN (18:02)
[2017-08-26] MEDS: ATORVASTATIN 20 MG TABLET PO SCH (20:06)
[2017-08-26] MEDS: TAMSULOSIN 0.4 MG CAPSULE PO SCH (20:06)
[2017-08-26] MEDS: SODIUM CL 3% INHAL.SOLN 15ml NEB AEROSOL SCH (20:38)
--- NOTE | 2017-08-26 21:55 | Echocardiogram ---
DATE OF PROCEDURE August 26, 2017 This is a two-dimensional echo with spectral Doppler, color-flow and M-mode. It was obtained in a patient with syncope, respiratory failure, severe sepsis and aspiration. Left atrium is dilated. Left ventricular end-diastolic dimension is normal. Left ventricular wall thickness is increased. LV systolic function appears to be at the lower limits of normal to mildly reduced with ejection fraction of about 45%-50%. Right atrium is dilated. Right ventricle is normal. Aortic root dimension is normal. Mitral valve is morphologically normal with trace of mitral regurgitation. Aortic valve was not visualized well. However, it appears to be trileaflet with no stenosis or insufficiency. Tricuspid valve shows mild tricuspid regurgitation with moderate pulmonary hypertension with estimated pulmonary artery systolic pressure of 46. Pulmonary valve shows no pulmonary insufficiency. There is no pericardial effusion. IMPRESSION 1. LV function at the lower limits of normal to mildly reduced with ejection fraction of about 45%-50%. 2. Biatrial dilation. 3. Concentric left ventricular hypertrophy. 4. Trace of mitral regurgitation. 5. Mild tricuspid regurgitation with moderate pulmonary hypertension with estimated pulmonary artery systolic pressure of 46. MTDD
[2017-08-26] MEDS: FUROSEMIDE 100 MG/10 ML INJECTION IVP SCH (22:09)
[2017-08-27] MEDS: ALBUTEROL/IPRATROPIUM 2.5mg-0.5mg/3ml NEB AEROSOL SCH ×7 (00:16→23:05)
[2017-08-27] MEDS: SODIUM CL 3% INHAL.SOLN 15ml NEB AEROSOL SCH ×6 (00:16→23:05)
[2017-08-27] MEDS: MIDAZOLAM 2mg/2ml INJECTION IVP PRN ×6 (00:32→22:42)
[2017-08-27] MEDS: CEFEPIME 1 GM in NS 100 ML IV SCH ×3 (02:46→19:03)
[2017-08-27] MEDS: FUROSEMIDE 100 MG/10 ML INJECTION IVP SCH ×2 (02:49→08:34)
[2017-08-27] MEDS: SUCRALFATE 1 GM TABLET PO SCH ×4 (06:02→21:22)
[2017-08-27] MEDS: BUDESONIDE INH.SOLN 0.5mg/2ml NEB AEROSOL SCH ×2 (06:52→19:31)
[2017-08-27] MEDS: NS IV PRN ×2 (07:38→16:39)
[2017-08-27] MEDS: FENTANYL IV PRN ×2 (07:38→16:39)
[2017-08-27] MEDS: ASPIRIN *EC* 81 MG TABLET PO SCH (08:22)
[2017-08-27] MEDS: PANTOPRAZOLE 40 MG INJECTION IVP SCH (08:31)
[2017-08-27] MEDS: ENOXAPARIN 40 MG/0.4 ML INJECTION SQ SCH (08:31)
--- NOTE | 2017-08-27 08:31 | CT Scan Report ---
Indication: hypoxia, elevated d dimer, Hx of emboli PROCEDURE: CT angio pulm emboli: Encounter: Initial Comparison: Chest x-ray from today Technique: Axial CT pulmonary angiographic phase images were performed through the chest after the administration of intravenous contrast. Coronal and Sagittal MIP reconstructed images were created and reviewed. Automated Exposure Control and Iterative Reconstruction dose reducing techniques were utilized. Contrast: Omnipaque 350 74 mL Findings: Pulmonary arteries: Exam is diagnostic to the segmental pulmonary arterial level. No filling defects identified to suggest a pulmonary embolus. Subsegmental pulmonary arteries cannot be well evaluated due to contrast bolus and motion artifact. Other findings: The patient is intubated with a nasogastric tube also in place. Emphysema with severe consolidation seen throughout both lungs. Small pleural pleural effusions. No pneumothorax. No axillary or mediastinal adenopathy. Heart is enlarged. No pericardial effusion. The upper abdomen shows no acute findings. Impression: 1. No pulmonary embolus. 2. Severe bilateral airspace disease could be due to widespread pneumonia or massive aspiration with or without superimposed edema. There is a preliminary report by virtual radiologic. .
[2017-08-27] MEDS: FLUTICASONE NASAL SPRAY 50mcg EA NOSTRIL SCH (08:35)
[2017-08-27] MEDS ORDERED: FUROSEMIDE 40 MG/4 ML INJECTION IVP SCH (09:00)
--- NOTE | 2017-08-27 09:19 | Cardiology Progress Note ---
<Lakeshia Brady - Last Filed: 08/28/17 09:40> Subjective Principal diagnosis: pulm edema/ CHF Interval history: Chavez is seen today in follow up for pulmonary edema/ CHF. He remains intubated and sedated Exam Vital signs: Temperature 98.4 F 08/26/17 20:00 Pulse Rate 86 08/27/17 08:00 Respiratory Rate 20 08/27/17 07:05 Blood Pressure 128/71 08/27/17 05:00 Pulse Oximetry 94 08/27/17 07:05 - Constitutional no acute distress - Routine HEENT Exam Head: Present: normocephalic ENT: Present: mucous membranes moist - Routine Neck Exam Absent: JVD, carotid bruit - Routine Chest/Breast/Axilla Exam Chest wall: Absent: tenderness - Routine Respiratory Exam Present: CTA bilaterally, diminished air movement (anteriorly) - Routine Cardiovascular Exam Present: RRR, no murmur - Routine Abdominal Exam Present: soft, normoactive bowel sounds - Routine Extremities Exam Present: no edema - Routine Skin Exam Present: intact, dry, warm - Routine Psychiatric Exam Present: unable to assess - Additional findings Additional findings: Acetaminophen (Tylenol) 650 mg NG QID PRN PRN Reason: Discomfort Acetaminophen (Tylenol Liquid) 640 mg PO Q4H PRN PRN Reason: Fever Last Admin: 08/28/17 09:06 Dose: 640 mg Albuterol/Ipratropium (Duoneb) 3 ml AEROSOL Q4HR [facility] Last Admin: 08/28/17 06:50 Dose: 3 ml Aspirin (Ecotrin) 81 mg PO DAILY [facility] Last Admin: 08/27/17 08:22 Dose: Not Given Aspirin (Asa) 81 mg NG DAILY [facility] Last Admin: 08/28/17 09:05 Dose: 81 mg Atorvastatin Calcium (Lipitor) 20 mg NG HS [facility] Last Admin: 08/27/17 21:22 Dose: 20 mg Budesonide (Pulmicort Inhalation) 0.5 mg AEROSOL RTBID [facility] Last Admin: 08/28/17 06:50 Dose: 0.5 mg Buspirone HCl (Buspar) 20 mg PO BID [facility] Last Admin: 08/26/17 08:34 Dose: 20 mg Enoxaparin Sodium (Lovenox) 40 mg SQ DAILY [facility] Last Admin: 08/28/17 09:04 Dose: 40 mg Finasteride (Proscar) 5 mg PO DAILY [facility] Last Admin: 08/26/17 08:34 Dose: 5 mg Fluoxetine HCl (Prozac) 80 mg PO DAILY [facility] Last Admin: 08/26/17 08:35 Dose: 80 mg Fluticasone Propionate (Flonase) 2 spray EA NOSTRIL DAILY [facility] Last Admin: 08/28/17 09:06 Dose: Not Given Furosemide (Lasix) 40 mg IVP Q12HR [facility] Last Admin: 08/28/17 09:05 Dose: 40 mg Levofloxacin/Dextrose (Levaquin Premix) 750 mg in 150 mls @ 100 mls/hr IV Q24H [facility] Last Infusion: 08/27/17 15:09 Dose: Infused Fentanyl 1,000 mcg/ Sodium (Chloride) 100 mls @ 0 mls/hr IV .Q0M PRN; Per Protocol PRN Reason: Protocol Last Infusion: 08/28/17 09:00 Dose: Infused Norepinephrine Bitartrate 4, (000 mcg/ Sodium Chloride) 254 mls @ 38.1 mls/hr IV .Q6H40M PRN; Protocol; 10 MCG/MIN PRN Reason: Hypotension Cefazolin Sodium 1 g/ Sodium (Chloride) 100 mls @ 200 mls/hr IV Q8HR [facility] Last Admin: 08/28/17 09:05 Dose: 200 mls/hr Lorazepam (Ativan Inj) 1 mg IVP Q4H PRN Last Admin: 08/27/17 00:54 Dose: 1 mg Midazolam HCl (Versed) 2 mg IVP Q4HR PRN Last Admin: 08/28/17 04:59 Dose: 2 mg Morphine Sulfate (Morphine Sulfate Inj) 2 mg IVP Q1H PRN PRN Reason: Respiratory distress Last Admin: 08/26/17 15:20 Dose: 2 mg Nitroglycerin (Nitrostat) 0.4 mg SL Q5MIN PRN PRN Reason: CP Ondansetron HCl (Zofran) 4 mg IVP Q6H PRN PRN Reason: Nausea &/or vomiting Oxycodone/Acetaminophen (Percocet 5/325) 1 tab PO Q4H PRN PRN Reason: Pain Last Admin: 08/25/17 19:15 Dose: 1 tab Pantoprazole Sodium (Protonix Iv) 40 mg IVP DAILY [facility] Last Admin: 08/28/17 09:06 Dose: 40 mg Potassium Chloride (Kcl Oral Liq) 40 meq NG BIDWM [facility] Last Admin: 08/28/17 09:00 Dose: 40 meq Pregabalin (Lyrica) 150 mg PO BID [facility] Last Admin: 08/26/17 08:36 Dose: 150 mg Ropinirole HCl (Requip) 0.25 mg PO [facility] Last Admin: 08/25/17 20:13 Dose: 0.25 mg Sodium Chloride (Iv Flush) 10 - 80 ml IVF PRN PRN PRN Reason: Flushing Sodium Chloride (Sodium Chloride 3% Inhal) 3 ml AEROSOL Q4HR [facility] Last Admin: 08/28/17 06:51 Dose: 3 ml Sucralfate (Carafate) 1 gm PO ACHS [facility] Last Admin: 08/28/17 06:25 Dose: 1 gm Tamsulosin HCl (Flomax) 0.4 mg PO [facility] Last Admin: 08/27/17 21:13 Dose: Not Given Trazodone HCl (Desyrel) 300 mg PO [facility] Last Admin: 08/25/17 20:47 Dose: 300 mg - Urinary Catheter Management Urethral Cath placed during this visit: yes Insertion date: 08/24/17 Insertion time: 14:30 Results 08/27/17 03:39 08/28/17 04:36 Cardiac Enzymes 08/26/17 08/27/17 Range/Units 06:48 03:39 Troponin I 0.064 0.076 (0-0.12) ng/ml CBC 08/27/17 Range/Units 03:39 WBC 9.6 (4.5-11.0) T/MM3 RBC 3.81 L (4.50-5.90) M/MM3 Hgb 11.5 L (13.5-17.5) GM/DL Hct 38.4 L (41-53) % Plt Count 140 (130-400) T/MM3 Neut # (Auto) 7.7 (1.8-7.7) T/MM3 Lymph # (Auto) 0.9 L (1-4.8) T/MM3 [place] # (Auto) 0.8 (0-0.8) T/MM3 Eos # (Auto) 0.2 (0-0.5) T/MM3 Baso # (Auto) 0.0 (0-0.2) T/MM3 Comprehensive Metabolic Panel 08/27/17 Range/Units 03:39 Sodium 147 H (134-144) MEQ/L Potassium 3.2 L (3.6-5) MEQ/L Chloride 108 H (98-107) MEQ/L Carbon Dioxide 29 (22-30) MEQ/L BUN 23.0 H (9-20) MG/DL Creatinine 1.1 (0.8-1.5) MG/DL Glucose 120 H (75-110) MG/DL Calcium 7.9 L (8.4-10.2) MG/DL Albumin 3.2 L (3.5-5.0) G/DL Intake and Output 08/26/17 08/27/17 08/27/17 22:59 06:59 14:59 Intake Total 2214.083 / 2214.083 798.25 / 798.25 Output Total 645 / 645 785 / 785 125 / 125 Balance 1569.083 / 1569.083 13.25 / 13.25 -125 / -125 Intake: IV 2214.083 / 2214.083 738.25 / 738.25 Cefepime 1 gm In Ns 100 200 / 200 100 / 100 ml @ 200 mls/hr IV Q6HR [facility] Rx#:[id number] FentaNYL 1,000 mcg In Ns 54.083 / 54.083 138.25 / 138.25 100 ml @ Per Protocol IV .Q0M PRN Rx#:[id number] Levofloxacin Pb 750 mg In 150 / 150 150 ml @ 100 mls/hr IV Q24H [facility] Rx#:[id number] NS 500ml 250 ml @ 999.9 1000 / 1000 mls/hr IV .Q15M [facility] Rx#: [id number] POTASSIUM PHOSPHATE (mMol 310 / 310 ) 30 mmol In D5w 500 ml @ 100 mls/hr IV O [facility] Rx#: [id number] Vancomycin 1,500 mg In NS 500 / 500 500 / 500 500ml 500 ml @ 250 mls/ hr IV Q12H [facility] Rx#: [id number] Intake, Gastric Tube 60 / 60 Irrigant Amount Right Nare 60 / 60 Output: Urine Amount (Catheter) 645 / 645 785 / 785 125 / 125 Other: Urine Appearance Clear Clear Urine Color Yellow Yellow Weight 222 lb 10.67 oz Patient Weight 08/28/17 06:59 Weight 222 lb 10.67 oz - Imaging and Cardiology Echo: report reviewed Imaging & Cardiology Narrative: Date of Exam: 08/26/17 Type of Exam(s): US echo doppler complete DATE OF PROCEDURE August 26, 2017 This is a two-dimensional echo with spectral Doppler, color-flow and M-mode. It was obtained in a patient with syncope, respiratory failure, severe sepsis and aspiration. Left atrium is dilated. Left ventricular end-diastolic dimension is normal. Left ventricular wall thickness is increased. LV systolic function appears to be at the lower limits of normal to mildly reduced with ejection fraction of about 45%-50%. Right atrium is dilated. Right ventricle is normal. Aortic root dimension is normal. Mitral valve is morphologically normal with trace of mitral regurgitation. Aortic valve was not visualized well. However, it appears to be trileaflet with no stenosis or insufficiency. Tricuspid valve shows mild tricuspid regurgitation with moderate pulmonary hypertension with estimated pulmonary artery systolic pressure of 46. Pulmonary valve shows no pulmonary insufficiency. There is no pericardial effusion. IMPRESSION 1. LV function at the lower limits of normal to mildly reduced with ejection fraction of about 45%-50%. 2. Biatrial dilation. 3. Concentric left ventricular hypertrophy. 4. Trace of mitral regurgitation. 5. Mild tricuspid regurgitation with moderate pulmonary hypertension with estimated pulmonary artery systolic pressure of 46. 08/28/17 09:45 08/28/17 09:45 Date of Exam: 08/27/17 Ordering Provider: Yumiko Amos APRN Type of Exam(s): XR chest 1V Reason for Exam(s): Respiratory Failure, pna Indication: Respiratory Failure, pna PROCEDURE: XR chest 1V: Encounter: Initial Comparison: August 26, 2017 Findings: Endotracheal tube in stable position. Nasogastric tube extending below the diaphragm. The tip is not included on this image. Overlying cardiac monitoring leads. Slight improvement in aeration of the right lung with decreasing density in the extensive right lower lobe consolidation. Severe bilateral airspace disease remains. No gross pneumothorax. Small pleural effusions. Cardiac silhouette and mediastinal contours are stable. Pulmonary vascularity is indistinct. Impression: New nasogastric tube. Slight improvement in aeration of the right lung. Assessment and Plan - Assessment and Plan (1) Severe sepsis Current visit: Yes Status: Acute (2) Aspiration pneumonia Current visit: Yes Status: Acute (3) Acute respiratory failure with hypoxia Current visit: Yes Status: Acute CTA negative for PE (4) Atherosclerotic heart disease of [place] coronary artery without angina pectoris Current visit: No Status: Chronic (5) Dilated cardiomyopathy Current visit: No Status: Chronic (6) Aortic ectasia Current visit: No Status: Chronic (7) Atherosclerosis of [place] artery of both lower extremities Current visit: No Status: Chronic (8) Essential (primary) hypertension Current visit: No Status: Chronic (9) Mixed hyperlipidemia Current visit: No Status: Chronic (10) Acute on chronic diastolic (congestive) heart failure Current visit: Yes Status: Acute Decrease Lasix to 40mg Q12H - Assessment and Plan 08/26/17 Severe sepsis per attending Aspiration pneumonia per attending Acute respiratory failure with hypoxia Check D Dimer 495 - CTA to rule out pulmonary emboli Acute on chronic diastolic (congestive) heart failure - Diuresing well with essentially no improvement in hypoxia - Continue diuresis Atherosclerotic heart disease of [place] coronary artery without angina pectoris Dilated cardiomyopathy Aortic ectasia Atherosclerosis of [place] artery of both lower extremities Essential (primary) hypertension Mixed hyperlipidemia 08/27/17 CTA negative for PE Decrease Lasix to 40mg Q12H Hospital Course Summary Disclaimer: The visit summary below is not to be considered part of the above Progress Note. Hospital Course: 08/23/17 Impression Severe sepsis- manifestations include leukocytosis- 15.9, bandemia- 19%, aspiration pneumonia, elevated venous lactate- 2.4- present on admission Aspiration Pneumonia Acute hypoxic respiratory failure COPD with chronic O2 use at 2L Type II diabetes Hypertension Hyperlipidemia congestive heart failure. Peripheral vascular disease BPH Plan Admit patient to ICU for severe sepsis with aspiration pneumonia. Patient received IV Rocephin in the emergency room. Convert to Unasyn for further antimicrobial coverage of likely aspiration pneumonia. Blood cultures are pending. Will repeat venous lactate at 1335 as per sepsis protocol. Patient has received initial 1500 ml IV fluids while in the emergency room. He has received 1500ML thus far and remains hypotensive with blood pressure 87 systolic. Patient is to receive 30 ML per kilo, which would total 3300 ML total fluids as per protocol. Will then reevaluate status. If he remains hypotensive or has a map less than 65. Will need to consider adding vasopressors. Continue with oxygen as needed to maintain saturations. Schedule Duoneb QID and Pulmicort BID. Continue to monitor cardiac telemetry given cardiac history. At time of discharge medical care will return to primary care provider at [facility] 08/24/17 Continue Unasyn for aspiration pneumonia; leukocytosis improving and bands have resolved. Reassess CXR in a.m. due to increased O2 demand-most recently on 15 L by high flow nasal cannula. Diuresis initiated as patient is typically on 80 mg of Lasix twice daily and fluid balance is positive since admission. BNP in a.m. IV fluids decreased to 50 mL per hour. Discussed BiPAP with patient due to marginal oxygenation-declined at present time. Ongoing anterior chest wall discomfort which may be due to the preceding fall or pneumonia; troponin/EKG unremarkable. Blood pressure/blood sugar stable overnight. 08/25/17 Continue Unasyn for aspiration pneumonia; leukocytosis/cough/sputum improving and bands have resolved. CXR today with pulmonary edema-IV fluids discontinued, home diuretic resumed with supplemental IV doses given today. Due to worsening respiratory symptoms and hypoxia BiPAP has been initiated. Will consult Dr. Rivers in a.m.; anticipate repeat echo and less done recently in the outpatient setting. Episodic hypertension-likely correlates with respiratory distress. No modifications in blood pressure regimen at this time. Hope to have PT/OT evaluate patient tomorrow if respiratory status permits; multiple medications may be contributing to fall risk. Convert to full liquid diet per patient request with addition of nutritional supplements-too short of breath to eat solid food. Unclear if patient has underlying spinal stenosis-medications suggest neuropathy. Critically ill with combined heart failure and hypoxic respiratory failure due to aspiration pneumonia. 08/26/17 Persistent/worsening hypoxia overnight requiring increased FiO2 to 100% on BiPAP. PCO2 unchanged but patient fatiguing by exam. Decision made early afternoon to intubate patient when it became necessary to increase expiratory pressure with BiPAP in an attempt to improve oxygen saturation despite FiO2 of 100%. Intubated by anesthesia at bedside-thick sputum plugs present in upper airway. Dr. Madrid consulted for assistance managing ventilator. Hypertonic saline added to breathing treatments, will require frequent suctioning. Antibiotics expanded for healthcare associated coverage due to severity of illness although patient lives privately. Reculture sputum. Cardiology consulted due to heart failure/?syncope. Modest elevation d-dimer-for CTA when able to do so. Hx PE-brother only aware of a single prior event Postintubation blood pressures low-fluid balance negative over the past 48 hours , fluid boluses being administered now. Lasix dose decreased. <Ted Rivers - Last Filed: 08/29/17 12:01> Exam Vital signs: Temperature 100.3 F 08/29/17 04:30 Pulse Rate 104 H 08/29/17 11:22 Respiratory Rate 18 08/29/17 11:22 Blood Pressure 110/80 08/29/17 11:15 Pulse Oximetry 83 L 08/29/17 11:22 - Urinary Catheter Management Urethral Cath placed during this visit: no Results 08/29/17 04:47 08/29/17 04:47 CBC 08/28/17 08/29/17 Range/Units 15:49 04:47 WBC 11.3 H 9.8 (4.5-11.0) T/MM3 RBC 3.92 L 4.16 L (4.50-5.90) M/MM3 Hgb 11.9 L 12.5 L (13.5-17.5) GM/DL Hct 39.3 L 41.8 (41-53) % Plt Count 194 D 179 (130-400) T/MM3 Neut # (Auto) Not performed 8.2 H Lymph # (Auto) Not performed 0.9 L [place] # (Auto) Not performed 0.3 Eos # (Auto) Not performed 0.2 Baso # (Auto) Not performed 0.0 Comprehensive Metabolic Panel 08/28/17 08/29/17 Range/Units 16:37 04:47 Sodium 157 H 159 H (134-144) MEQ/L Potassium 3.4 L 3.7 (3.6-5) MEQ/L Chloride 115 H 114 H (98-107) MEQ/L Carbon Dioxide 32 H 33 H (22-30) MEQ/L BUN 35.0 H 40.0 H (9-20) MG/DL Creatinine 1.3 1.3 (0.8-1.5) MG/DL Glucose 189 H 269 H (75-110) MG/DL Calcium 8.5 8.4 (8.4-10.2) MG/DL Albumin 3.2 L (3.5-5.0) G/DL Intake and Output 08/28/17 08/29/17 08/29/17 22:59 06:59 14:59 Intake Total 390.580 / 390.580 798.871 / 798.871 259.028 / 259.028 Output Total 1540 / 1540 970 / 970 375 / 375 Balance -1149.420 / -1149.420 -171.129 / -171.129 -115.972 / -115.972 Intake: IV 390.580 / 390.580 398.871 / 398.871 59.028 / 59.028 Cefazolin 1 g In Ns 100 100 / 100 100 / 100 ml @ 200 mls/hr IV Q8HR [facility] Rx#:[id number] FentaNYL 1,000 mcg In Ns 100.25 / 100.25 98.75 / 98.75 37.25 / 37.25 100 ml @ Per Protocol IV .Q0M PRN Rx#:[id number] Levofloxacin Pb 750 mg In 50 / 50 150 ml @ 100 mls/hr IV Q24H [facility] Rx#:[id number] POTASSIUM PHOSPHATE (mMol 136.000 / 136.000 127.50 / 127.50 17 / 17 ) 30 mmol In D5w 500 ml @ 17 mls/hr IV .Q24H [facility] Rx#:[id number] Propofol 1,000 mg In 100 4.330 / 4.330 72.621 / 72.621 4.778 / 4.778 ml @ 5 MCG/KG/MIN 3.09 mls/hr IV .Q24H PRN Rx#: [id number] Tube Feeding 0 / 0 0 / 0 0 / 0 Left Nare 0 / 0 0 / 0 0 / 0 Intake, Gastric Tube 400 / 400 200 / 200 Irrigant Amount Left Nare 400 / 400 200 / 200 Output: Urine Amount (Catheter) 1540 / 1540 970 / 970 375 / 375 Other: Urine Appearance Clear Clear Clear Urine Color Yellow Yellow Yellow Assessment and Plan - Assessment and Plan (1) Atherosclerotic heart disease of [place] coronary artery without angina pectoris Current visit: No Status: Chronic (2) Dilated cardiomyopathy Current visit: No Status: Chronic (3) Aortic ectasia Current visit: No Status: Chronic (4) Atherosclerosis of [place] artery of both lower extremities Current visit: No Status: Chronic (5) Essential (primary) hypertension Current visit: No Status: Chronic (6) Mixed hyperlipidemia Current visit: No Status: Chronic (7) Severe sepsis Current visit: Yes Status: Acute (8) Aspiration pneumonia Current visit: Yes Status: Acute (9) Acute respiratory failure with hypoxia Current visit: Yes Status: Acute (10) Acute on chronic diastolic (congestive) heart failure Current visit: Yes Status: Acute - Attestation Attestation Narrative: 08/29/17 12:01 Recommendation After examining the patient I agree with the above assessment. I am involved in the formulation of the patient's plan of care. Hospital Course Summary Disclaimer: The visit summary below is not to be considered part of the above Progress Note.
[2017-08-27] MEDS: FUROSEMIDE 40 MG/4 ML INJECTION IVP SCH ×2 (10:00→21:18)
[2017-08-27] MEDS: LIDOCAINE 1% 2ml INJ 10 MG, POTASSIUM CHLORIDE INJ 10 MEQ in NS 100 ML IV SCH ×4 (10:25→13:48)
--- NOTE | 2017-08-27 10:41 | Pulmonology Progress Note ---
<Yumiko Amos D - Last Filed: 08/27/17 10:37> Subjective Principal diagnosis: pulm edema/ CHF Interval history: Patient sedated on vent. Patient on 100%, PEEP 15, sats 100%. Per RN patient doing well with no new issues. Per RT starting to get some thinner secretions up. Exam Vital signs: Temperature 99.7 F 08/27/17 08:00 Pulse Rate 86 08/27/17 09:16 Respiratory Rate 22 08/27/17 09:16 Blood Pressure 142/88 H 08/27/17 09:16 Pulse Oximetry 96 08/27/17 09:16 - Constitutional no acute distress, well nourished, well developed Comments: sedated - Routine HEENT Exam Head: Present: normocephalic, atraumatic Comments: on vent per ET tube - Routine Neck Exam Present: supple, trachea midline - Routine Respiratory Exam Present: patient mechanically ventilated, rhonchi - Routine Cardiovascular Exam Present: RRR, S1, S2, no murmur - Routine Abdominal Exam Present: soft, normoactive bowel sounds, non distended - Routine Extremities Exam Present: no edema, full ROM, normal capillary refill Comments: passive ROM - Routine Skin Exam Present: intact, dry, warm, normal turgor - Routine Neurological Exam patient sedated on Fentanyl drip and Versed PRN - Routine Psychiatric Exam Present: unable to assess - Urinary Catheter Management Urethral Cath placed during this visit: yes Urethral indwelling: Yes Reason for continuing: Accurate I&O/Aggressive Diuresis Insertion date: 08/24/17 Insertion time: 14:30 Assessment and Plan - Assessment and Plan Acute on Chronic Hypoxic Respiratory Failure Aspiration Pneumonia Sepsis- sputum cx + Klebsiella COPD A/C Diastolic HF Hx DVT/PE- CT neg for PE Plan: Pt currently on vent Ac/Vc f14, Vt 500, peep 15, Fio2 100%, sats 98-100%, will decrease peep to 12, ABG 7.34/58/73 this am. Resting comfortably on fentanyl gtt with prn versed. Currently WBC normal, afebrile, CXR with improved RLL consolidation still with bilateral interstitial infiltrates. Procal 5.77, now 2.46, currently on cefepime, Levaquin and vanco. Sputum cx + Klebsiella, sensitive to Levaquin and cefepime. Currently getting lasix 40 BID with good UOP -2100/24hr. On BT's with Pulmicort BID, a/a q 4hrs, 3% q4 hrs. Continue with daily CXR and follow closely. If tolerates decreased PEEP, will have RT wean FiO2. Once to 60% FiO2, will decrease PEEP to 10. - Time Spent With Patient Total time spent is greater than 50% in coordination of care (as documented) at patient's floor/unit and/or counseling patient: less than 15 minutes <Dionisio Madrid - Last Filed: 08/27/17 12:08> Exam Vital signs: Temperature 99.7 F 08/27/17 08:00 Pulse Rate 82 08/27/17 10:46 Respiratory Rate 16 08/27/17 10:46 Blood Pressure 142/88 H 08/27/17 09:16 Pulse Oximetry 99 08/27/17 10:46 - Urinary Catheter Management Urethral Cath placed during this visit: no Assessment and Plan (1) Severe sepsis Status: Acute Assessment and plan: BP improved. Has not required Levophed. UO 60ML/hr. Lactate improved. Still with low grade temp Current Visit: Yes (2) Aspiration pneumonia Status: Acute Assessment and plan: cultures growing Klebsiella. On empiric antibiotics until sensitivities are available. Current Visit: Yes (3) Acute respiratory failure with hypoxia Status: Acute Assessment and plan: Still requiring Fio2 95% and peep 12. SPo2 97% but desats quickly with reduced FiO2. continue mechanical ventilation with AC/VC+ Vt 500, rate 14, peep 12. Wean as tolerated. Not ready for SBT Current Visit: Yes - Time Spent With Patient Total time spent is greater than 50% in coordination of care (as documented) at patient's floor/unit and/or counseling patient:
--- NOTE | 2017-08-27 13:11 | XRay Report ---
Indication: Respiratory Failure, pna PROCEDURE: XR chest 1V: Encounter: Initial Comparison: August 26, 2017 Findings: Endotracheal tube in stable position. Nasogastric tube extending below the diaphragm. The tip is not included on this image. Overlying cardiac monitoring leads. Slight improvement in aeration of the right lung with decreasing density in the extensive right lower lobe consolidation. Severe bilateral airspace disease remains. No gross pneumothorax. Small pleural effusions. Cardiac silhouette and mediastinal contours are stable. Pulmonary vascularity is indistinct. Impression: New nasogastric tube. Slight improvement in aeration of the right lung. .
[2017-08-27] MEDS: LEVOFLOXACIN PB 750 MG/150 ML BAG IV SCH (13:13)
[2017-08-27] MEDS ORDERED: ACETAMINOPHEN 325 MG TABLET NG PRN (15:12)
[2017-08-27] MEDS: CEFAZOLIN 1 G in NS 100 ML IV SCH (18:08)
--- NOTE | 2017-08-27 20:12 | Progress Note ---
- Date 08/27/17 Subjective: Mr. Braxton remains intubated on high flow oxygen. He's had minimal NG output per nursing and requires continuous sedation. He will occasionally respond weakly when sedation is lightened and has tried to sit up in bed. Urine output has been adequate and low-grade fever was reported overnight. Objective Vital signs: Temperature 99 F 08/27/17 15:00 Pulse Rate 85 08/27/17 19:33 Respiratory Rate 17 08/27/17 19:33 Blood Pressure 132/64 08/27/17 18:45 Pulse Oximetry 95-FiO2 95% 08/27/17 19:33 I/O 3312/3030 NAD, drowsy, opens eyes to voice and squeezes fingers/wiggles toes to request Conjunctiva injected, gaze conjugate Coarse breath sounds left lateral base, anterior mays clear Regular rhythm, S1-S2 Abdomen soft, nontender, diminished bowel sounds No peripheral edema Rhythm: Normal Sinus Rhythm Height/Weight/BMI: Height 1.85 m Weight 101 kg Body Mass Index 30.8 Results - Labs CBC & Chem 7: 08/27/17 03:39 08/27/17 18:17 Microbiology Results: Microbiology 08/24/17 07:45 Sputum, Expectorated Gram Stain - Final 08/24/17 07:45 Sputum, Expectorated Sputum Culture - Final Klebsiella pneumoniae Normal Resp Fatuma incl. Yeast - ABG Interpretation ABG results: 08/25/17 08/26/17 08/26/17 21:00 06:41 13:31 ABG pH 7.400 7.420 ABG pCO2 54 H 53 H ABG pO2 70 L 55 L ABG HCO3 33 H 34 H ABG Total CO2 35.1 H 36.0 H ABG O2 Saturation 94.0 L 89.0 L ABG Base Excess 7.1 H 8.4 H VBG pH 7.390 VBG pCO2 54 H VBG pO2 87 H VBG HCO3 33 H VBG Total CO2 34.4 VBG O2 Saturation 97.0 VBG Base Excess 6.3 H 08/26/17 08/26/17 08/27/17 15:47 19:00 07:00 ABG pH 7.380 7.380 7.340 L ABG pCO2 58 H 59 H 58 H ABG pO2 60 L 51 L 73 L ABG HCO3 34 H 35 H 31 H ABG Total CO2 36.1 H 36.7 H 33.1 H ABG O2 Saturation 90.0 L 85.0 L 93.0 L ABG Base Excess 7.4 H 7.9 H 4.1 H VBG pH VBG pCO2 VBG pO2 VBG HCO3 VBG Total CO2 VBG O2 Saturation VBG Base Excess - Imaging and Cardiology Chest x-ray Status: image reviewed by me (ET tube well positioned, persistent severe bilateral lung space disease consistent with pulmonary edema/pneumonia; minimal change right lung) Assessment and Plan (1) Acute respiratory failure with hypoxia Current visit: Yes Status: Acute (2) Severe sepsis Current visit: Yes Status: Acute (3) Aspiration pneumonia Current visit: Yes Status: Acute Assessment and Plan: Impression Severe sepsis- manifestations include leukocytosis-WBC 15.9, 19% bands, aspiration pneumonia, elevated venous lactate 2.4 on admission Aspiration Pneumonia with sputum plugging Acute/chronic hypoxic respiratory failure Post intubation hypotension Pulmonary edema-possible Syncope vs fall [place] COPD with chronic O2 use at 2L Type II diabetes Hypertension Hyperlipidemia Acute on chronic preserved LV function Congestive heart failure-EF 65% June 2016 by echo. Peripheral vascular disease BPH Hypophosphatemia Plan Persistent hypoxia -attempt to decrease FiO2 failed earlier today, FiO2 95% on ventilator. Appreciated Dr. Madrid's assistance. Continue diuresis. Sputum culture with Klebsiella-respiratory confirms this was a good sputum sample and large plug. De-escalate antibiotics-discontinue vancomycin, convert cefepime to ceftezole and based on sensitivities, continue Levaquin. Initiate nutrition per NG with TwoCal at 25 mL per hour, dietary consult. Resume aspirin and Lipitor per NG. Replace potassium-IV/per NG. Remains critically ill-time in 1441, Timeout 1513 DVT Prophylaxis: SCD's, Lovenox GI Prophylaxis: Protonix Resuscitation Status: Full Code Hospital Course Summary Disclaimer: The visit summary below is not to be considered part of the above Progress Note. Hospital Course: 08/23/17 Impression Severe sepsis- manifestations include leukocytosis- 15.9, bandemia- 19%, aspiration pneumonia, elevated venous lactate- 2.4- present on admission Aspiration Pneumonia Acute hypoxic respiratory failure COPD with chronic O2 use at 2L Type II diabetes Hypertension Hyperlipidemia congestive heart failure. Peripheral vascular disease BPH Plan Admit patient to ICU for severe sepsis with aspiration pneumonia. Patient received IV Rocephin in the emergency room. Convert to Unasyn for further antimicrobial coverage of likely aspiration pneumonia. Blood cultures are pending. Will repeat venous lactate at 1335 as per sepsis protocol. Patient has received initial 1500 ml IV fluids while in the emergency room. He has received 1500ML thus far and remains hypotensive with blood pressure 87 systolic. Patient is to receive 30 ML per kilo, which would total 3300 ML total fluids as per protocol. Will then reevaluate status. If he remains hypotensive or has a map less than 65. Will need to consider adding vasopressors. Continue with oxygen as needed to maintain saturations. Schedule Duoneb QID and Pulmicort BID. Continue to monitor cardiac telemetry given cardiac history. At time of discharge medical care will return to primary care provider at the [facility] 08/24/17 Continue Unasyn for aspiration pneumonia; leukocytosis improving and bands have resolved. Reassess CXR in a.m. due to increased O2 demand-most recently on 15 L by high flow nasal cannula. Diuresis initiated as patient is typically on 80 mg of Lasix twice daily and fluid balance is positive since admission. BNP in a.m. IV fluids decreased to 50 mL per hour. Discussed BiPAP with patient due to marginal oxygenation-declined at present time. Ongoing anterior chest wall discomfort which may be due to the preceding fall or pneumonia; troponin/EKG unremarkable. Blood pressure/blood sugar stable overnight. 08/25/17 Continue Unasyn for aspiration pneumonia; leukocytosis/cough/sputum improving and bands have resolved. CXR today with pulmonary edema-IV fluids discontinued, home diuretic resumed with supplemental IV doses given today. Due to worsening respiratory symptoms and hypoxia BiPAP has been initiated. Will consult Dr. Rivers in a.m.; anticipate repeat echo and less done recently in the outpatient setting. Episodic hypertension-likely correlates with respiratory distress. No modifications in blood pressure regimen at this time. Hope to have PT/OT evaluate patient tomorrow if respiratory status permits; multiple medications may be contributing to fall risk. Convert to full liquid diet per patient request with addition of nutritional supplements-too short of breath to eat solid food. Unclear if patient has underlying spinal stenosis-medications suggest neuropathy. Critically ill with combined heart failure and hypoxic respiratory failure due to aspiration pneumonia. 08/26/17 Persistent/worsening hypoxia overnight requiring increased FiO2 to 100% on BiPAP. PCO2 unchanged but patient fatiguing by exam. Decision made early afternoon to intubate patient when it became necessary to increase expiratory pressure with BiPAP in an attempt to improve oxygen saturation despite FiO2 of 100%. Intubated by anesthesia at bedside-thick sputum plugs present in upper airway. Dr. Madrid consulted for assistance managing ventilator. Hypertonic saline added to breathing treatments, will require frequent suctioning. Antibiotics expanded for healthcare associated coverage due to severity of illness although patient lives privately. Reculture sputum. Cardiology consulted due to heart failure/?syncope. Modest elevation d-dimer-for CTA when able to do so. Hx PE-brother only aware of a single prior event Postintubation blood pressures low-fluid balance negative over the past 48 hours , fluid boluses being administered now. Lasix dose decreased. 08/27/17\ Persistent hypoxia -attempt to decrease FiO2 failed earlier today, FiO2 95% on ventilator. Appreciated Dr. Madrid's assistance. Continue diuresis. Sputum culture with Klebsiella-respiratory confirms this was a good sputum sample and large plug. De-escalate antibiotics-discontinue vancomycin, convert cefepime to ceftezole and based on sensitivities, continue Levaquin. Initiate nutrition per NG with TwoCal at 25 mL per hour, dietary consult. Resume aspirin and Lipitor per NG. Replace potassium-IV/per NG.
[2017-08-27] MEDS: TAMSULOSIN 0.4 MG CAPSULE PO SCH (21:13)
[2017-08-27] MEDS: ATORVASTATIN 20 MG TABLET NG SCH (21:22)
[2017-08-27] MEDS: POTASSIUM CHLORIDE 20 MEQ/15 ML ORAL LIQUID NG SCH (21:41)
[2017-08-28] MEDS: CEFAZOLIN 1 G in NS 100 ML IV SCH ×3 (01:17→17:13)
[2017-08-28] MEDS: FENTANYL IV PRN ×3 (01:48→17:44)
[2017-08-28] MEDS: NS IV PRN ×3 (01:48→17:44)
[2017-08-28] MEDS: SODIUM CL 3% INHAL.SOLN 15ml NEB AEROSOL SCH ×6 (03:00→23:30)
[2017-08-28] MEDS: ALBUTEROL/IPRATROPIUM 2.5mg-0.5mg/3ml NEB AEROSOL SCH ×6 (03:11→23:30)
[2017-08-28] MEDS: ACETAMINOPHEN 160mg/5ml ORAL LIQUID PO PRN ×2 (04:24→09:06)
[2017-08-28] MEDS: MIDAZOLAM 2mg/2ml INJECTION IVP PRN ×4 (04:59→19:31)
[2017-08-28] MEDS: SUCRALFATE 1 GM TABLET PO SCH ×2 (06:25→11:05)
[2017-08-28] MEDS: BUDESONIDE INH.SOLN 0.5mg/2ml NEB AEROSOL SCH ×2 (06:50→22:14)
[2017-08-28] MEDS ORDERED: POTASSIUM CHLORIDE 20 MEQ/15 ML ORAL LIQUID NG SCH (08:00)
--- NOTE | 2017-08-28 08:41 | XRay Report ---
Indication: Respiratory Failure PROCEDURE: XR chest 1V: Encounter: Initial Comparison: August 27, 2017 Findings: Endotracheal and nasogastric tubes remain in place. Overlying monitoring leads. Motion artifact. Bilateral infiltrates are similar in appearance allowing for the motion artifact. No obvious pneumothorax. Small pleural effusions. Cardiomediastinal contours are stable. Pulmonary vascularity cannot be evaluated. Impression: Limited exam due to motion artifact. Grossly stable bilateral infiltrates. .
[2017-08-28] MEDS: POTASSIUM CHLORIDE 20 MEQ/15 ML ORAL LIQUID NG SCH ×2 (09:00→17:15)
[2017-08-28] MEDS: ENOXAPARIN 40 MG/0.4 ML INJECTION SQ SCH (09:04)
[2017-08-28] MEDS: ASPIRIN 81 MG CHEWABLE TABLET NG SCH (09:05)
[2017-08-28] MEDS: FUROSEMIDE 40 MG/4 ML INJECTION IVP SCH ×2 (09:05→17:14)
[2017-08-28] MEDS: PANTOPRAZOLE 40 MG INJECTION IVP SCH (09:06)
[2017-08-28] MEDS: FLUTICASONE NASAL SPRAY 50mcg EA NOSTRIL SCH (09:06)
--- NOTE | 2017-08-28 09:49 | Cardiology Progress Note ---
<CaitlynLakeshia Lorene - Last Filed: 08/29/17 11:29> Subjective Principal diagnosis: pulm edema/ CHF Interval history: Chavez is seen today in follow up for pulmonary edema/ CHF. He remains intubated and sedated Exam Vital signs: Temperature 101.4 F H 08/28/17 07:00 Pulse Rate 90 08/28/17 09:30 Respiratory Rate 28 H 08/28/17 09:30 Blood Pressure 152/78 H 08/28/17 09:15 Pulse Oximetry 96 08/28/17 09:30 - Constitutional no acute distress, well nourished, cooperative - Routine HEENT Exam Head: Present: normocephalic ENT: Present: mucous membranes moist - Routine Neck Exam Absent: JVD, carotid bruit - Routine Chest/Breast/Axilla Exam Chest wall: Absent: tenderness - Routine Respiratory Exam Present: CTA bilaterally. Absent: rales, wheezes - Routine Cardiovascular Exam Present: RRR, no murmur - Routine Abdominal Exam Present: soft, normoactive bowel sounds - Routine Extremities Exam Present: no edema - Routine Skin Exam Present: intact, dry, warm - Routine Psychiatric Exam Present: unable to assess - Urinary Catheter Management Urethral Cath placed during this visit: yes Urethral indwelling: Yes Insertion date: 08/24/17 Insertion time: 14:30 Results 08/29/17 04:47 08/29/17 04:47 Comprehensive Metabolic Panel 08/27/17 08/28/17 Range/Units 18:17 04:36 Sodium 155 H D (134-144) MEQ/L Potassium 3.4 L 3.3 L (3.6-5) MEQ/L Chloride 113 H (98-107) MEQ/L Carbon Dioxide 31 H (22-30) MEQ/L BUN 32.0 H (9-20) MG/DL Creatinine 1.3 D (0.8-1.5) MG/DL Glucose 227 H (75-110) MG/DL Calcium 8.4 (8.4-10.2) MG/DL Albumin 3.1 L (3.5-5.0) G/DL Intake and Output 08/27/17 08/28/17 08/28/17 22:59 06:59 14:59 Intake Total 694.75 / 694.75 644.75 / 644.75 175 / 175 Output Total 750 / 750 675 / 675 110 / 110 Balance -55.25 / -55.25 -30.25 / -30.25 65 / 65 Intake: IV 419.75 / 419.75 164.75 / 164.75 100 / 100 Cefazolin 1 g In Ns 100 100 / 100 100 / 100 ml @ 200 mls/hr IV Q8HR [facility] Rx#:[id number] FentaNYL 1,000 mcg In Ns 69.75 / 69.75 64.75 / 64.75 100 / 100 100 ml @ Per Protocol IV .Q0M PRN Rx#:[id number] LIDOCAINE 1% 2ml INJ 10 100 / 100 mg Potassium Chloride Inj 10 meq In Ns 100 ml @ 100 mls/hr IV .Q1H [facility] Rx #:[id number] Levofloxacin Pb 750 mg In 150 / 150 150 ml @ 100 mls/hr IV Q24H [facility] Rx#:[id number] Tube Feeding 175 / 175 225 / 225 75 / 75 Right Nare 175 / 175 225 / 225 75 / 75 Intake, Gastric Tube 100 / 100 255 / 255 Irrigant Amount Right Nare 100 / 100 255 / 255 Output: Urine Amount (Catheter) 675 / 675 675 / 675 110 / 110 Gastric Drainage 75 / 75 Right Nare 75 / 75 Other: Weight 227 lb 1.218 oz Patient Weight 08/29/17 06:59 Weight 227 lb 1.218 oz - Imaging and Cardiology Imaging & Cardiology Narrative: Date of Exam: 08/28/17 Ordering Provider: Yumiko Amos APRN Type of Exam(s): XR chest 1V Reason for Exam(s): Respiratory Failure Indication: Respiratory Failure PROCEDURE: XR chest 1V: Encounter: Initial Comparison: August 27, 2017 Findings: Endotracheal and nasogastric tubes remain in place. Overlying monitoring leads. Motion artifact. Bilateral infiltrates are similar in appearance allowing for the motion artifact. No obvious pneumothorax. Small pleural effusions. Cardiomediastinal contours are stable. Pulmonary vascularity cannot be evaluated. Impression: Limited exam due to motion artifact. Grossly stable bilateral infiltrates. 08/28/17 09:48 Assessment and Plan - Assessment and Plan (1) Severe sepsis Current visit: Yes Status: Acute (2) Aspiration pneumonia Current visit: Yes Status: Acute (3) Acute respiratory failure with hypoxia Current visit: Yes Status: Acute (4) Atherosclerotic heart disease of [place] coronary artery without angina pectoris Current visit: No Status: Chronic (5) Dilated cardiomyopathy Current visit: No Status: Chronic (6) Aortic ectasia Current visit: No Status: Chronic (7) Atherosclerosis of [place] artery of both lower extremities Current visit: No Status: Chronic (8) Essential (primary) hypertension Current visit: No Status: Chronic (9) Mixed hyperlipidemia Current visit: No Status: Chronic (10) Acute on chronic diastolic (congestive) heart failure Current visit: Yes Status: Acute - Assessment and Plan Severe sepsis per attending Aspiration pneumonia per attending Acute respiratory failure with hypoxia Check D Dimer 495 - CTA to rule out pulmonary emboli Acute on chronic diastolic (congestive) heart failure Diuresing well with essentially no improvement in hypoxia Atherosclerotic heart disease of [place] coronary artery without angina pectoris Dilated cardiomyopathy Aortic ectasia Atherosclerosis of [place] artery of both lower extremities Essential (primary) hypertension Mixed hyperlipidemia 08/27/17 CTA negative for PE Decrease Lasix to 40mg Q12H 08/28/17 No change in plan of care today. Continue to monitor fluid volume status. Hospital Course Summary Disclaimer: The visit summary below is not to be considered part of the above Progress Note. Hospital Course: 08/23/17 Impression Severe sepsis- manifestations include leukocytosis- 15.9, bandemia- 19%, aspiration pneumonia, elevated venous lactate- 2.4- present on admission Aspiration Pneumonia Acute hypoxic respiratory failure COPD with chronic O2 use at 2L Type II diabetes Hypertension Hyperlipidemia congestive heart failure. Peripheral vascular disease BPH Plan Admit patient to ICU for severe sepsis with aspiration pneumonia. Patient received IV Rocephin in the emergency room. Convert to Unasyn for further antimicrobial coverage of likely aspiration pneumonia. Blood cultures are pending. Will repeat venous lactate at 1335 as per sepsis protocol. Patient has received initial 1500 ml IV fluids while in the emergency room. He has received 1500ML thus far and remains hypotensive with blood pressure 87 systolic. Patient is to receive 30 ML per kilo, which would total 3300 ML total fluids as per protocol. Will then reevaluate status. If he remains hypotensive or has a map less than 65. Will need to consider adding vasopressors. Continue with oxygen as needed to maintain saturations. Schedule Duoneb QID and Pulmicort BID. Continue to monitor cardiac telemetry given cardiac history. At time of discharge medical care will return to primary care provider at the [facility] 08/24/17 Continue Unasyn for aspiration pneumonia; leukocytosis improving and bands have resolved. Reassess CXR in a.m. due to increased O2 demand-most recently on 15 L by high flow nasal cannula. Diuresis initiated as patient is typically on 80 mg of Lasix twice daily and fluid balance is positive since admission. BNP in a.m. IV fluids decreased to 50 mL per hour. Discussed BiPAP with patient due to marginal oxygenation-declined at present time. Ongoing anterior chest wall discomfort which may be due to the preceding fall or pneumonia; troponin/EKG unremarkable. Blood pressure/blood sugar stable overnight. 08/25/17 Continue Unasyn for aspiration pneumonia; leukocytosis/cough/sputum improving and bands have resolved. CXR today with pulmonary edema-IV fluids discontinued, home diuretic resumed with supplemental IV doses given today. Due to worsening respiratory symptoms and hypoxia BiPAP has been initiated. Will consult Dr. Rivers in a.m.; anticipate repeat echo and less done recently in the outpatient setting. Episodic hypertension-likely correlates with respiratory distress. No modifications in blood pressure regimen at this time. Hope to have PT/OT evaluate patient tomorrow if respiratory status permits; multiple medications may be contributing to fall risk. Convert to full liquid diet per patient request with addition of nutritional supplements-too short of breath to eat solid food. Unclear if patient has underlying spinal stenosis-medications suggest neuropathy. Critically ill with combined heart failure and hypoxic respiratory failure due to aspiration pneumonia. 08/26/17 Persistent/worsening hypoxia overnight requiring increased FiO2 to 100% on BiPAP. PCO2 unchanged but patient fatiguing by exam. Decision made early afternoon to intubate patient when it became necessary to increase expiratory pressure with BiPAP in an attempt to improve oxygen saturation despite FiO2 of 100%. Intubated by anesthesia at bedside-thick sputum plugs present in upper airway. Dr. Madrid consulted for assistance managing ventilator. Hypertonic saline added to breathing treatments, will require frequent suctioning. Antibiotics expanded for healthcare associated coverage due to severity of illness although patient lives privately. Reculture sputum. Cardiology consulted due to heart failure/?syncope. Modest elevation d-dimer-for CTA when able to do so. Hx PE-brother only aware of a single prior event Postintubation blood pressures low-fluid balance negative over the past 48 hours , fluid boluses being administered now. Lasix dose decreased. <Ted Rivers - Last Filed: 08/29/17 12:08> Exam Vital signs: Temperature 100.3 F 08/29/17 04:30 Pulse Rate 104 H 08/29/17 11:22 Respiratory Rate 23 08/29/17 12:04 Blood Pressure 110/80 08/29/17 11:15 Pulse Oximetry 83 L 08/29/17 12:04 - Urinary Catheter Management Urethral Cath placed during this visit: no Results 08/29/17 04:47 08/29/17 04:47 CBC 08/28/17 08/29/17 Range/Units 15:49 04:47 WBC 11.3 H 9.8 (4.5-11.0) T/MM3 RBC 3.92 L 4.16 L (4.50-5.90) M/MM3 Hgb 11.9 L 12.5 L (13.5-17.5) GM/DL Hct 39.3 L 41.8 (41-53) % Plt Count 194 D 179 (130-400) T/MM3 Neut # (Auto) Not performed 8.2 H Lymph # (Auto) Not performed 0.9 L [place] # (Auto) Not performed 0.3 Eos # (Auto) Not performed 0.2 Baso # (Auto) Not performed 0.0 Comprehensive Metabolic Panel 08/28/17 08/29/17 Range/Units 16:37 04:47 Sodium 157 H 159 H (134-144) MEQ/L Potassium 3.4 L 3.7 (3.6-5) MEQ/L Chloride 115 H 114 H (98-107) MEQ/L Carbon Dioxide 32 H 33 H (22-30) MEQ/L BUN 35.0 H 40.0 H (9-20) MG/DL Creatinine 1.3 1.3 (0.8-1.5) MG/DL Glucose 189 H 269 H (75-110) MG/DL Calcium 8.5 8.4 (8.4-10.2) MG/DL Albumin 3.2 L (3.5-5.0) G/DL Intake and Output 08/28/17 08/29/17 08/29/17 22:59 06:59 14:59 Intake Total 390.580 / 390.580 798.871 / 798.871 259.028 / 259.028 Output Total 1540 / 1540 970 / 970 375 / 375 Balance -1149.420 / -1149.420 -171.129 / -171.129 -115.972 / -115.972 Intake: IV 390.580 / 390.580 398.871 / 398.871 59.028 / 59.028 Cefazolin 1 g In Ns 100 100 / 100 100 / 100 ml @ 200 mls/hr IV Q8HR [facility] Rx#:[id number] FentaNYL 1,000 mcg In Ns 100.25 / 100.25 98.75 / 98.75 37.25 / 37.25 100 ml @ Per Protocol IV .Q0M PRN Rx#:[id number] Levofloxacin Pb 750 mg In 50 / 50 150 ml @ 100 mls/hr IV Q24H [facility] Rx#:[id number] POTASSIUM PHOSPHATE (mMol 136.000 / 136.000 127.50 / 127.50 17 / 17 ) 30 mmol In D5w 500 ml @ 17 mls/hr IV .Q24H [facility] Rx#:[id number] Propofol 1,000 mg In 100 4.330 / 4.330 72.621 / 72.621 4.778 / 4.778 ml @ 5 MCG/KG/MIN 3.09 mls/hr IV .Q24H [facility] Rx#: [id number] Tube Feeding 0 / 0 0 / 0 0 / 0 Left Nare 0 / 0 0 / 0 0 / 0 Intake, Gastric Tube 400 / 400 200 / 200 Irrigant Amount Left Nare 400 / 400 200 / 200 Output: Urine Amount (Catheter) 1540 / 1540 970 / 970 375 / 375 Other: Urine Appearance Clear Clear Clear Urine Color Yellow Yellow Yellow Assessment and Plan - Assessment and Plan (1) Atherosclerotic heart disease of [place] coronary artery without angina pectoris Current visit: No Status: Chronic (2) Dilated cardiomyopathy Current visit: No Status: Chronic (3) Aortic ectasia Current visit: No Status: Chronic (4) Atherosclerosis of [place] artery of both lower extremities Current visit: No Status: Chronic (5) Essential (primary) hypertension Current visit: No Status: Chronic (6) Mixed hyperlipidemia Current visit: No Status: Chronic (7) Severe sepsis Current visit: Yes Status: Acute (8) Aspiration pneumonia Current visit: Yes Status: Acute (9) Acute respiratory failure with hypoxia Current visit: Yes Status: Acute (10) Acute on chronic diastolic (congestive) heart failure Current visit: Yes Status: Acute - Attestation Attestation Narrative: 08/29/17 12:08 Recommendation After examining the patient I agree with the above assessment. I am involved in the formulation of the patient's plan of care. Hospital Course Summary Disclaimer: The visit summary below is not to be considered part of the above Progress Note.
--- NOTE | 2017-08-28 11:29 | Progress Note ---
- Date 08/28/17 Subjective: Sedated. Nursing reports oxygenation increased 100% overnight. Secretions are decreasing however remain purulent. Hyperglycemia since tube feedings initiated. No bowel activity. Effective urine output with diuresis. Objective Vital signs: Temperature 101.4 F H 08/28/17 07:00 Pulse Rate 80 08/28/17 10:44 Respiratory Rate 18 08/28/17 10:44 Blood Pressure 148/71 H 08/28/17 10:00 Pulse Oximetry 93 08/28/17 10:44 I/O 1795/2360 reported weight up 2 kg Sedated/sleeping; does not respond to exam Pupils equal/conjugate gaze; conjunctiva slightly injected, sclera anicteric Respirations nonlabored on ventilator, good airflow, breath sounds slightly coarse at the left base laterally Regular rhythm, S1-S2-sinus rhythm on telemetry Abdomen soft, nontender, obese, no bowel sounds appreciated Without edema Left midline-insertion site okay, peripheral line on the right Rhythm: Normal Sinus Rhythm Height/Weight/BMI: Height 1.85 m Weight 103 kg Body Mass Index 30.8 Results - Labs CBC & Chem 7: 08/27/17 03:39 08/28/17 04:36 Labs: Phosphorus 1.1 Microbiology Results: Microbiology 08/24/17 07:45 Sputum, Expectorated Gram Stain - Final 08/24/17 07:45 Sputum, Expectorated Sputum Culture - Final Klebsiella pneumoniae Normal Resp Fatuma incl. Yeast - ABG Interpretation Attestation: I reviewed and interpreted this ABG. (mild compensated hypercarbia , marked hypoxia) ABG results: 08/27/17 08/28/17 07:00 06:35 ABG pH 7.340 L 7.370 ABG pCO2 58 H 56 H ABG pO2 73 L 54 L ABG HCO3 31 H 32 H ABG Total CO2 33.1 H 34.1 H ABG O2 Saturation 93.0 L 87.0 L ABG Base Excess 4.1 H 5.7 H - Imaging and Cardiology Chest x-ray Status: image reviewed by me (ET/NG appropriately placed; persistent bilateral infiltrates without change.) Assessment and Plan (1) Acute respiratory failure with hypoxia Current visit: Yes Status: Acute (2) Severe sepsis Current visit: Yes Status: Acute (3) Aspiration pneumonia Current visit: Yes Status: Acute Assessment and Plan: Impression Severe sepsis- manifestations include leukocytosis-WBC 15.9, 19% bands, aspiration pneumonia, elevated venous lactate 2.4 on admission Aspiration Pneumonia with sputum plugging Acute/chronic hypoxic respiratory failure Post intubation hypotension Pulmonary edema-possible Syncope vs fall [employer] COPD with chronic O2 use at 2L Type II diabetes Hypertension Hyperlipidemia Acute on chronic preserved LV function Congestive heart failure-EF 65% June 2016 by echo. Peripheral vascular disease BPH Hypophosphatemia-08/26/17 Hypokalemia-08/25/17 Hypernatremia 08/26/17 Plan Continues to require maximal ventilatory assistance. Continue diuresis. Although initial sputum culture with Klebsiella will reculture in the event secondary pathogen has developed. Klebsiella currently being treated with Levaquin and Ancef. Free water increased per G-tube due to hypernatremia. K-Phos in D5 to address electrolyte abnormalities. Continue potassium elixir. Aspirin and Lipitor per NG. d/w nursing, dietary. Remains critically ill-time in 1041, Time out 1054; time in 1110, time out 1136. DVT Prophylaxis: Lovenox GI Prophylaxis: Protonix Resuscitation Status: Full Code Hospital Course Summary Disclaimer: The visit summary below is not to be considered part of the above Progress Note. Hospital Course: 08/23/17 Impression Severe sepsis- manifestations include leukocytosis- 15.9, bandemia- 19%, aspiration pneumonia, elevated venous lactate- 2.4- present on admission Aspiration Pneumonia Acute hypoxic respiratory failure COPD with chronic O2 use at 2L Type II diabetes Hypertension Hyperlipidemia congestive heart failure. Peripheral vascular disease BPH Plan Admit patient to ICU for severe sepsis with aspiration pneumonia. Patient received IV Rocephin in the emergency room. Convert to Unasyn for further antimicrobial coverage of likely aspiration pneumonia. Blood cultures are pending. Will repeat venous lactate at 1335 as per sepsis protocol. Patient has received initial 1500 ml IV fluids while in the emergency room. He has received 1500ML thus far and remains hypotensive with blood pressure 87 systolic. Patient is to receive 30 ML per kilo, which would total 3300 ML total fluids as per protocol. Will then reevaluate status. If he remains hypotensive or has a map less than 65. Will need to consider adding vasopressors. Continue with oxygen as needed to maintain saturations. Schedule Duoneb QID and Pulmicort BID. Continue to monitor cardiac telemetry given cardiac history. At time of discharge medical care will return to primary care provider at the [facility] 08/24/17 Continue Unasyn for aspiration pneumonia; leukocytosis improving and bands have resolved. Reassess CXR in a.m. due to increased O2 demand-most recently on 15 L by high flow nasal cannula. Diuresis initiated as patient is typically on 80 mg of Lasix twice daily and fluid balance is positive since admission. BNP in a.m. IV fluids decreased to 50 mL per hour. Discussed BiPAP with patient due to marginal oxygenation-declined at present time. Ongoing anterior chest wall discomfort which may be due to the preceding fall or pneumonia; troponin/EKG unremarkable. Blood pressure/blood sugar stable overnight. 08/25/17 Continue Unasyn for aspiration pneumonia; leukocytosis/cough/sputum improving and bands have resolved. CXR today with pulmonary edema-IV fluids discontinued, home diuretic resumed with supplemental IV doses given today. Due to worsening respiratory symptoms and hypoxia BiPAP has been initiated. Will consult Dr. Rivers in a.m.; anticipate repeat echo and less done recently in the outpatient setting. Episodic hypertension-likely correlates with respiratory distress. No modifications in blood pressure regimen at this time. Hope to have PT/OT evaluate patient tomorrow if respiratory status permits; multiple medications may be contributing to fall risk. Convert to full liquid diet per patient request with addition of nutritional supplements-too short of breath to eat solid food. Unclear if patient has underlying spinal stenosis-medications suggest neuropathy. Critically ill with combined heart failure and hypoxic respiratory failure due to aspiration pneumonia. 08/26/17 Persistent/worsening hypoxia overnight requiring increased FiO2 to 100% on BiPAP. PCO2 unchanged but patient fatiguing by exam. Decision made early afternoon to intubate patient when it became necessary to increase expiratory pressure with BiPAP in an attempt to improve oxygen saturation despite FiO2 of 100%. Intubated by anesthesia at bedside-thick sputum plugs present in upper airway. Dr. Madrid consulted for assistance managing ventilator. Hypertonic saline added to breathing treatments, will require frequent suctioning. Antibiotics expanded for healthcare associated coverage due to severity of illness although patient lives privately. Reculture sputum. Cardiology consulted due to heart failure/?syncope. Modest elevation d-dimer-for CTA when able to do so. Hx PE-brother only aware of a single prior event Postintubation blood pressures low-fluid balance negative over the past 48 hours , fluid boluses being administered now. Lasix dose decreased. 08/27/17 Persistent hypoxia -attempt to decrease FiO2 failed earlier today, FiO2 95% on ventilator. Appreciated Dr. Madrid's assistance. Continue diuresis. Sputum culture with Klebsiella-respiratory confirms this was a good sputum sample and large plug. De-escalate antibiotics-discontinue vancomycin, convert cefepime to ceftezole and based on sensitivities, continue Levaquin. Initiate nutrition per NG with TwoCal at 25 mL per hour, dietary consult. Resume aspirin and Lipitor per NG. Replace potassium-IV/per NG. 08/28/17 11:38 Continues to require maximal ventilatory assistance. Continue diuresis. Although initial sputum culture with Klebsiella will reculture in the event secondary pathogen has developed. Klebsiella currently being treated with Levaquin and Ancef. Free water increased per G-tube due to hypernatremia. K-Phos in D5 to address electrolyte abnormalities.
[2017-08-28] MEDS: INSULIN ASPART 100unit/ml INJECTION SQ PRN ×2 (11:39→20:08)
[2017-08-28] MEDS: D5W IV SCH (11:44)
[2017-08-28] MEDS: POTASSIUM PHOSPHATE IV SCH (11:44)
[2017-08-28 11:51] VITALS: BMI 29.9
[2017-08-28] MEDS: LEVOFLOXACIN PB 750 MG/150 ML BAG IV SCH (13:00)
--- NOTE | 2017-08-28 13:43 | Pulmonology Progress Note ---
<Yumiko Amos D - Last Filed: 08/28/17 13:39> Subjective Principal diagnosis: Acute Hypoxic Respiratory Failure Interval history: Patient is intubated and sedated. RT at bedside, obtaining new sputum cx. Still on AC/PC, PEEP 12, sats 84%, Vt 1200. No other concerns other than O2 issues. Exam Vital signs: Temperature 101.7 F H 08/28/17 11:00 Pulse Rate 86 08/28/17 12:00 Respiratory Rate 18 08/28/17 10:44 Blood Pressure 148/71 H 08/28/17 10:00 Pulse Oximetry 93 08/28/17 10:44 - Constitutional no acute distress, well nourished, well developed - Routine HEENT Exam Head: Present: normocephalic, atraumatic ENT: Present: mucous membranes moist Comments: ET tube #8 - Routine Neck Exam Present: supple, trachea midline - Routine Respiratory Exam Present: patient mechanically ventilated, crackles - Routine Cardiovascular Exam Present: RRR, S1, S2, no murmur - Routine Abdominal Exam Present: soft Comments: hypoactive BS - Routine Extremities Exam Present: no edema, pulses intact, normal capillary refill Comments: passive ROM - Routine Skin Exam Present: intact, dry, warm, normal turgor - Routine Neurological Exam sedated on Fentanyl drip and Versed PRN - Routine Psychiatric Exam Present: unable to assess - Urinary Catheter Management Urethral Cath placed during this visit: yes Urethral indwelling: Yes Reason for continuing: Accurate I&O/Aggressive Diuresis Insertion date: 08/24/17 Insertion time: 14:30 Assessment and Plan - Assessment and Plan Acute on Chronic Hypoxic Respiratory Failure Aspiration Pneumonia Sepsis- sputum cx + Klebsiella COPD A/C Diastolic HF 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 ABG 7.37/56/54, continued hypoxemia, slightly improved with vent adjustment. Will start proning protocol. Patient currently with NG, will have dobhoff placed to decrease risk of aspiration. If proning does not improve oxygenation, may require BiLevel. Resting comfortably on fentanyl gtt with prn versed. Currently WBC normal, febrile 101, CXR with slightly improved RLL consolidation still with diffuse infiltrates. Procal 5.77 , now 2.46, currently on ancef and Levaquin s/p cefepime and vanco. Sputum cx + Klebsiella. rechecking sputum secondary to continued fevers. Currently getting lasix 40 BID with good UOP-500/24hr. BUN and Cr up slightly, Na 155, increased free H2O per NG per primary along with D5 drip. Kcl and P low, replacing per primary. Continue to follow. On BT's with Pulmicort BID, a/a q 4hrs, 3% q4 hrs. Add Solumedrol 50mg IV q 8hrs. Continue with daily CXR and follow closely. ABG in 4 hrs. - Time Spent With Patient Total time spent is greater than 50% in coordination of care (as documented) at patient's floor/unit and/or counseling patient: 25 - 35 minutes <Dionisio Madrid - Last Filed: 08/28/17 18:30> Exam Vital signs: Temperature 100.5 F H 08/28/17 17:00 Pulse Rate 85 08/28/17 17:00 Respiratory Rate 32 H 08/28/17 17:00 Blood Pressure 142/77 H 08/28/17 17:00 Pulse Oximetry 90 08/28/17 17:00 - Urinary Catheter Management Urethral Cath placed during this visit: no Assessment and Plan (1) Severe sepsis Status: Acute Assessment and plan: Patient's BP is high at this point. Sepsis seems to be resolving on current antibiotics. Sepsis markers improved Current Visit: Yes (2) Aspiration pneumonia Status: Acute Assessment and plan: Micro: sputum shows Klebsiella which is sensitive to current antibiotic regimen. Ok to deescalate regimen at this point. recheck Procalcitonin in AM Current Visit: Yes (3) Acute respiratory failure with hypoxia Status: Acute Assessment and plan: ARDS picture. Lung compliance is better in prone position, however he continues to have profound hypoxemia. FIO2 100, Peep 15. IP 10 with Vte up to 900 ML. His prognosis is guarded at this point. We may consider BILEVEL ventilation however his COPD (and obstructive physiology) may be a barrier to it 's use. His CXR is stable to slightly improved. We will continue Prone position as tolerated through the evening and will turn him supine around bedtime I would hold TF's and start in AM. Would like DHT to be in the duodenum prior to initiating TF's. Current Visit: Yes - Time Spent With Patient Total time spent is greater than 50% in coordination of care (as documented) at patient's floor/unit and/or counseling patient: - Attestation Attestation Narrative: critical care services provided. Time [id number], 35 minutes.
--- NOTE | 2017-08-28 14:26 | XRay Report ---
Indication: Dobhoff placement PROCEDURE: XR chest 1V: Encounter: Initial Comparison: August 28, 2017 at 0548 Findings: Endotracheal tube appears grossly stable in position. Dobbhoff tube in place with the tip projecting over the body of the stomach. Prior nasogastric tube has been removed. Severe bilateral airspace disease is redemonstrated with small bilateral effusions. Impression: New Dobbhoff tube tip projecting over the body of the stomach. .
--- NOTE | 2017-08-28 14:57 | XRay Report ---
Indication: dobhoff location PROCEDURE: XR KUB: Encounter: Initial Comparison: Chest x-ray from earlier this afternoon Findings/ Impression: Dobbhoff tube has changed position with the tip now projecting over the expected pyloric region of the stomach. No other significant changes. .
[2017-08-28] MEDS: MORPHINE SULFATE 2mg INJECTION IVP PRN ×2 (15:21→17:30)
[2017-08-28] MEDS: METHYLPREDNISOLONE SOD SUCC 125mg/2ml INJECTION IVP SCH (17:44)
[2017-08-28] MEDS ORDERED: POTASSIUM CHLORIDE INJ 20 MEQ in D5NS 1,000 ML IV SCH (19:30)
[2017-08-28] MEDS: ACETAMINOPHEN 650 MG SUPPOSITORY PR PRN (19:45)
[2017-08-28] MEDS ORDERED: PHARMACY CONSULT - OTHER MEDS MC ONE (20:56)
[2017-08-28] MEDS: PROPOFOL 1,000 MG/100 ML VIAL IV PRN (21:23)
[2017-08-28] MEDS: ATORVASTATIN 20 MG TABLET NG SCH (23:21)
[2017-08-28] MEDS: TAMSULOSIN 0.4 MG CAPSULE PO SCH (23:25)
[2017-08-29] MEDS: CEFAZOLIN 1 G in NS 100 ML IV SCH ×3 (00:57→17:35)
[2017-08-29] MEDS: METHYLPREDNISOLONE SOD SUCC 125mg/2ml INJECTION IVP SCH ×3 (01:15→17:34)
[2017-08-29] MEDS: FUROSEMIDE 40 MG/4 ML INJECTION IVP SCH ×2 (01:15→08:37)
[2017-08-29] MEDS: NS IV PRN ×2 (01:49→09:53)
[2017-08-29] MEDS: FENTANYL IV PRN ×2 (01:49→09:53)
[2017-08-29] MEDS: ALBUTEROL/IPRATROPIUM 2.5mg-0.5mg/3ml NEB AEROSOL SCH ×4 (04:30→16:00)
[2017-08-29] MEDS: SODIUM CL 3% INHAL.SOLN 15ml NEB AEROSOL SCH ×4 (04:30→16:00)
[2017-08-29] MEDS: ACETAMINOPHEN 650 MG SUPPOSITORY PR PRN (04:58)
[2017-08-29] MEDS: INSULIN ASPART 100unit/ml INJECTION SQ PRN ×2 (06:11→15:45)
[2017-08-29] MEDS: PROPOFOL 1,000 MG/100 ML VIAL IV PRN (06:13)
[2017-08-29] MEDS: BUDESONIDE INH.SOLN 0.5mg/2ml NEB AEROSOL SCH (08:14)
[2017-08-29] MEDS: PANTOPRAZOLE 40 MG INJECTION IVP SCH (08:36)
[2017-08-29] MEDS: ENOXAPARIN 40 MG/0.4 ML INJECTION SQ SCH (08:38)
[2017-08-29] MEDS: ASPIRIN 81 MG CHEWABLE TABLET NG SCH (08:42)
[2017-08-29] MEDS: FLUTICASONE NASAL SPRAY 50mcg EA NOSTRIL SCH (08:43)
[2017-08-29] MEDS: POTASSIUM CHLORIDE 20 MEQ/15 ML ORAL LIQUID NG SCH ×2 (08:43→18:18)
--- NOTE | 2017-08-29 08:48 | XRay Report ---
Indication: Respiratory Failure PROCEDURE: XR chest 1V: Encounter: Initial Comparison: August 28, 2017 Findings: Endotracheal tube appears stable in position. Dobbhoff tube noted, the tip is not included on this image. Severe bilateral airspace consolidation is not significantly changed. No pneumothorax seen on this semiupright view. Heart size and mediastinal contours are stable. Impression: Stable severe bilateral airspace disease. .
--- NOTE | 2017-08-29 08:49 | XRay Report ---
Indication: Dobhoff location PROCEDURE: XR KUB: Encounter: Initial Comparison: August 28, 2017 Findings: Motion artifact limits the exam. Dobbhoff tube tip is difficult to precisely visualize but appears to have advanced, now projecting over the second portion of the duodenum. This appears to be obscured by the patient's lumbar spine hardware. Overall nonobstructive bowel gas pattern with minimal bowel gas present. Impression: Dobbhoff tube has apparently advanced into the duodenum. .
--- NOTE | 2017-08-29 10:29 | Progress Note ---
- Date 08/29/17 Subjective: Worsening hypoxemia reported this morning. BP increased, trials prone positioning but saturations dropped into the 80s frequently overnight and 70s this morning despite very high PEEP and FiO2 100%. Mottling described by nursing. Brief episode A. fib with RVR this a.m. Propofol drip initiated overnight for increased restlessness. Patient unresponsive at present. Objective Vital signs: Temperature 100.3 F 08/29/17 04:30 Pulse Rate 154 H 08/29/17 09:30 Respiratory Rate 18 08/29/17 09:30 Blood Pressure 152/85 H 08/29/17 07:16 Pulse Oximetry 77 L 08/29/17 09:30 I/O [id number] Sedated, unresponsive, prone position Left pupil round, 2.5 mm, sclera injected; positioning precludes evaluation of right pupil Extremities warm, nails clubbed but not cyanotic Breath sounds clear bilaterally posteriorly, no wheezing/rhonchi Regular rhythm, slight tachycardia, S1-S2 Abdomen soft, sparse bowel sounds Without edema, skin does not tent, mild mottling on arms/back Rhythm: Sinus Tachycardia Height/Weight/BMI: Height 1.85 m Weight 103 kg Body Mass Index 29.9 Results - Labs CBC & Chem 7: 08/29/17 04:47 08/29/17 04:47 Labs: Phosphorus 2.5, magnesium 2.7, albumin 3.2 Microbiology Results: Microbiology 08/28/17 14:36 Sputum, Suctioned Sputum Culture - Preliminary Culture Initiated - Results Pending 08/24/17 07:45 Sputum, Expectorated Gram Stain - Final 08/24/17 07:45 Sputum, Expectorated Sputum Culture - Final Klebsiella pneumoniae Normal Resp Fatuma incl. Yeast - ABG Interpretation ABG results: 08/28/17 08/28/17 06:35 17:00 ABG pH 7.370 7.370 ABG pCO2 56 H 57 H ABG pO2 54 L 60 L ABG HCO3 32 H 33 H ABG Total CO2 34.1 H 34.7 H ABG O2 Saturation 87.0 L 90.0 L ABG Base Excess 5.7 H 6.1 H - Imaging and Cardiology Chest x-ray Status: image reviewed by me (persistent bilateral infiltrates) Abdominal x-ray Status: image reviewed by me (sparse bowel gas, radiology reports Dobbhoff infected portion of duodenum) Assessment and Plan (1) Acute respiratory failure with hypoxia Current visit: Yes Status: Acute (2) Severe sepsis Current visit: Yes Status: Acute (3) Aspiration pneumonia Current visit: Yes Status: Acute Assessment and Plan: Impression ARDS Severe sepsis- manifestations include leukocytosis-WBC 15.9, 19% bands, aspiration pneumonia, elevated venous lactate 2.4 on admission Aspiration Pneumonia with sputum plugging Acute/chronic hypoxic respiratory failure Post intubation hypotension Pulmonary edema-possible Syncope vs fall [employer] COPD with chronic O2 use at 2L Type II diabetes Hypertension Hyperlipidemia Acute on chronic preserved LV function Congestive heart failure-EF 65% June 2016 by echo. Peripheral vascular disease BPH Hypophosphatemia-08/26/17 Hypokalemia-08/25/17 Hypernatremia-08/26/17 Paroxysmal A. fib-08/29/17 Plan Failing maximal ventilatory assistance. Probable ARDS. Prognosis grim-discussed with patient's brother Villa/GONZALEZ and recommended DO NOT RESUSCITATE due to progressive deterioration. Patient previously expressed wish that he only be intubated for short period of time which clearly will not be the case. Villa agreed with DO NOT RESUSCITATE stating that if the patient's heart stopped no efforts should be initiated to resuscitate him. GONZALEZ in route to the hospital-will discuss withdrawal of ventilatory support later today. Worsening hypernatremia-diuresis cut back to Lasix once daily, continue free water. Brief A. fib this morning-occurred after rotating from supine to prone position , lasted approximately 10 minutes. Converted spontaneously. Repeat sputum culture pending looking for secondary pathogen, respiratory viral panel being obtained to evaluate for influenza. Klebsiella currently being treated with Levaquin and Ancef. Free water increased per G-tube due to hypernatremia yesterday. Phosphorus/potassium replacement ongoing. Remains critically ill-time in 1002, Time out 1043. Resuscitation Status: Do Not Resuscitate Hospital Course Summary Disclaimer: The visit summary below is not to be considered part of the above Progress Note. Hospital Course: 08/23/17 Impression Severe sepsis- manifestations include leukocytosis- 15.9, bandemia- 19%, aspiration pneumonia, elevated venous lactate- 2.4- present on admission Aspiration Pneumonia Acute hypoxic respiratory failure COPD with chronic O2 use at 2L Type II diabetes Hypertension Hyperlipidemia congestive heart failure. Peripheral vascular disease BPH Plan Admit patient to ICU for severe sepsis with aspiration pneumonia. Patient received IV Rocephin in the emergency room. Convert to Unasyn for further antimicrobial coverage of likely aspiration pneumonia. Blood cultures are pending. Will repeat venous lactate at 1335 as per sepsis protocol. Patient has received initial 1500 ml IV fluids while in the emergency room. He has received 1500ML thus far and remains hypotensive with blood pressure 87 systolic. Patient is to receive 30 ML per kilo, which would total 3300 ML total fluids as per protocol. Will then reevaluate status. If he remains hypotensive or has a map less than 65. Will need to consider adding vasopressors. Continue with oxygen as needed to maintain saturations. Schedule Duoneb QID and Pulmicort BID. Continue to monitor cardiac telemetry given cardiac history. At time of discharge medical care will return to primary care provider at the [facility] 08/24/17 Continue Unasyn for aspiration pneumonia; leukocytosis improving and bands have resolved. Reassess CXR in a.m. due to increased O2 demand-most recently on 15 L by high flow nasal cannula. Diuresis initiated as patient is typically on 80 mg of Lasix twice daily and fluid balance is positive since admission. BNP in a.m. IV fluids decreased to 50 mL per hour. Discussed BiPAP with patient due to marginal oxygenation-declined at present time. Ongoing anterior chest wall discomfort which may be due to the preceding fall or pneumonia; troponin/EKG unremarkable. Blood pressure/blood sugar stable overnight. 08/25/17 Continue Unasyn for aspiration pneumonia; leukocytosis/cough/sputum improving and bands have resolved. CXR today with pulmonary edema-IV fluids discontinued, home diuretic resumed with supplemental IV doses given today. Due to worsening respiratory symptoms and hypoxia BiPAP has been initiated. Will consult Dr. Rivers in a.m.; anticipate repeat echo and less done recently in the outpatient setting. Episodic hypertension-likely correlates with respiratory distress. No modifications in blood pressure regimen at this time. Hope to have PT/OT evaluate patient tomorrow if respiratory status permits; multiple medications may be contributing to fall risk. Convert to full liquid diet per patient request with addition of nutritional supplements-too short of breath to eat solid food. Unclear if patient has underlying spinal stenosis-medications suggest neuropathy. Critically ill with combined heart failure and hypoxic respiratory failure due to aspiration pneumonia. 08/26/17 Persistent/worsening hypoxia overnight requiring increased FiO2 to 100% on BiPAP. PCO2 unchanged but patient fatiguing by exam. Decision made early afternoon to intubate patient when it became necessary to increase expiratory pressure with BiPAP in an attempt to improve oxygen saturation despite FiO2 of 100%. Intubated by anesthesia at bedside-thick sputum plugs present in upper airway. Dr. Madrid consulted for assistance managing ventilator. Hypertonic saline added to breathing treatments, will require frequent suctioning. Antibiotics expanded for healthcare associated coverage due to severity of illness although patient lives privately. Reculture sputum. Cardiology consulted due to heart failure/?syncope. Modest elevation d-dimer-for CTA when able to do so. Hx PE-brother only aware of a single prior event Postintubation blood pressures low-fluid balance negative over the past 48 hours , fluid boluses being administered now. Lasix dose decreased. 08/27/17 Persistent hypoxia -attempt to decrease FiO2 failed earlier today, FiO2 95% on ventilator. Appreciated Dr. Madrid's assistance. Continue diuresis. Sputum culture with Klebsiella-respiratory confirms this was a good sputum sample and large plug. De-escalate antibiotics-discontinue vancomycin, convert cefepime to ceftezole and based on sensitivities, continue Levaquin. Initiate nutrition per NG with TwoCal at 25 mL per hour, dietary consult. Resume aspirin and Lipitor per NG. Replace potassium-IV/per NG. 08/28/17 11:38 Continues to require maximal ventilatory assistance. Continue diuresis. Although initial sputum culture with Klebsiella will reculture in the event secondary pathogen has developed. Klebsiella currently being treated with Levaquin and Ancef. Free water increased per G-tube due to hypernatremia. K-Phos in D5 to address electrolyte abnormalities. 08/29/17 Failing maximal ventilatory assistance. Probable ARDS. Prognosis grim-discussed with patient's brother Villa/GONZALEZ and recommended DO NOT RESUSCITATE due to progressive deterioration. Patient previously expressed wish that he only be intubated for short period of time which clearly will not be the case. Villa agreed with DO NOT RESUSCITATE stating that if the patient's heart stopped no efforts should be initiated to resuscitate him. GONZALEZ in route to the hospital-will discuss withdrawal of ventilatory support later today. Worsening hypernatremia-diuresis cut back to Lasix once daily, continue free water. Repeat sputum culture pending looking for secondary pathogen, respiratory viral panel being obtained to evaluate for influenza. Brief A. fib this morning-occurred after rotating from supine to prone position , lasted approximately 10 minutes. Converted spontaneously.
[2017-08-29] MEDS: LEVOFLOXACIN PB 750 MG/150 ML BAG IV SCH (13:41)
--- NOTE | 2017-08-29 15:11 | Cardiology Progress Note ---
<Lakeshia Brady - Last Filed: 08/29/17 15:07> Subjective Principal diagnosis: pulm edema/ CHF Interval history: Chavez is seen today in follow up for pulmonary edema/ CHF. He is in prone position in his bed in CCU, he remains intubated and sedated. Exam Vital signs: Temperature 100.3 F 08/29/17 04:30 Pulse Rate 105 H 08/29/17 14:08 Respiratory Rate 21 08/29/17 14:08 Blood Pressure 110/80 08/29/17 11:15 Pulse Oximetry 87 L 08/29/17 14:08 - Constitutional no acute distress - Routine HEENT Exam Head: Present: normocephalic - Routine Respiratory Exam Present: CTA bilaterally. Absent: rales, wheezes - Routine Cardiovascular Exam Present: tachycardia - Routine Extremities Exam Present: no edema - Additional findings Additional findings: Acetaminophen (Tylenol Liquid) 640 mg PO Q4H PRN PRN Reason: Fever Last Admin: 08/28/17 09:06 Dose: 640 mg Acetaminophen (Tylenol Supp) 650 mg MT Q5H PRN PRN Reason: Pain Last Admin: 08/29/17 04:58 Dose: 650 mg Albuterol/Ipratropium (Duoneb) 3 ml AEROSOL Q4HR [facility] Last Admin: 08/29/17 12:03 Dose: 3 ml Aspirin (Ecotrin) 81 mg PO DAILY [facility] Last Admin: 08/27/17 08:22 Dose: Not Given Aspirin (Asa) 81 mg NG DAILY [facility] Last Admin: 08/29/17 08:42 Dose: 81 mg Atorvastatin Calcium (Lipitor) 20 mg NG HS [facility] Last Admin: 08/28/17 23:21 Dose: 20 mg Budesonide (Pulmicort Inhalation) 0.5 mg AEROSOL RTBID [facility] Last Admin: 08/29/17 08:14 Dose: 0.5 mg Buspirone HCl (Buspar) 20 mg PO BID [facility] Last Admin: 08/26/17 08:34 Dose: 20 mg Enoxaparin Sodium (Lovenox) 40 mg SQ DAILY [facility] Last Admin: 08/29/17 08:38 Dose: 40 mg Finasteride (Proscar) 5 mg PO DAILY [facility] Last Admin: 08/26/17 08:34 Dose: 5 mg Fluoxetine HCl (Prozac) 80 mg PO DAILY [facility] Last Admin: 08/26/17 08:35 Dose: 80 mg Fluticasone Propionate (Flonase) 2 spray EA NOSTRIL DAILY [facility] Last Admin: 08/29/17 08:43 Dose: 2 spray Furosemide (Lasix) 40 mg IVP DAILY [facility] Levofloxacin/Dextrose (Levaquin Premix) 750 mg in 150 mls @ 100 mls/hr IV Q24H [facility] Last Admin: 08/29/17 13:41 Dose: 100 mls/hr Fentanyl 1,000 mcg/ Sodium (Chloride) 100 mls @ 0 mls/hr IV .Q0M PRN; Per Protocol PRN Reason: Protocol Last Infusion: 08/29/17 12:00 Dose: 15 mls/hr Cefazolin Sodium 1 g/ Sodium (Chloride) 100 mls @ 200 mls/hr IV Q8HR [facility] Last Infusion: 08/29/17 09:15 Dose: Infused Potassium Phosphate 30 mmol/ (Dextrose) 510 mls @ 17 mls/hr IV .Q24H [facility] Last Infusion: 08/29/17 12:00 Dose: 17 mls/hr Propofol (Diprivan) 1,000 mg in 100 mls @ 3.09 mls/hr IV .Q24H PRN; 5 MCG/KG/ MIN PRN Reason: Protocol Last Infusion: 08/29/17 12:00 Dose: 14.72 mcg/kg/min, 9.1 mls/hr Insulin Aspart (Novolog) 0 unit SQ SS PRN; Protocol PRN Reason: Hyperglycemia Last Admin: 08/29/17 06:11 Dose: 3 unit Lorazepam (Ativan Inj) 1 mg IVP Q4H PRN Last Admin: 08/27/17 00:54 Dose: 1 mg Methylprednisolone Sodium Succinate (Solu-Medrol) 50 mg IVP Q8HR [facility] Last Admin: 08/29/17 08:43 Dose: 50 mg Midazolam HCl (Versed) 2 mg IVP Q4HR PRN Last Admin: 08/28/17 19:31 Dose: 2 mg Morphine Sulfate (Morphine Sulfate Inj) 2 mg IVP Q1H PRN PRN Reason: Respiratory distress Last Admin: 08/28/17 17:30 Dose: 2 mg Nitroglycerin (Nitrostat) 0.4 mg SL Q5MIN PRN PRN Reason: CP Ondansetron HCl (Zofran) 4 mg IVP Q6H PRN PRN Reason: Nausea &/or vomiting Oxycodone/Acetaminophen (Percocet 5/325) 1 tab PO Q4H PRN PRN Reason: Pain Last Admin: 08/25/17 19:15 Dose: 1 tab Pantoprazole Sodium (Protonix Iv) 40 mg IVP DAILY [facility] Last Admin: 08/29/17 08:36 Dose: 40 mg Potassium Chloride (Kcl Oral Liq) 40 meq NG BIDWM [facility] Last Admin: 08/29/17 08:43 Dose: 40 meq Pregabalin (Lyrica) 150 mg PO BID [facility] Last Admin: 08/26/17 08:36 Dose: 150 mg Ropinirole HCl (Requip) 0.25 mg PO HS [facility] Last Admin: 08/25/17 20:13 Dose: 0.25 mg Sodium Chloride (Iv Flush) 10 - 80 ml IVF PRN PRN PRN Reason: Flushing Sodium Chloride (Sodium Chloride 3% Inhal) 3 ml AEROSOL Q4HR [facility] Last Admin: 08/29/17 12:03 Dose: 3 ml Sucralfate (Carafate) 1 gm PO ACHS [facility] Last Admin: 08/28/17 11:05 Dose: 1 gm Tamsulosin HCl (Flomax) 0.4 mg PO HS [facility] Last Admin: 08/28/17 23:25 Dose: Not Given Trazodone HCl (Desyrel) 300 mg PO HS [facility] Last Admin: 08/25/17 20:47 Dose: 300 mg - Urinary Catheter Management Urethral Cath placed during this visit: yes Urethral indwelling: Yes Insertion date: 08/24/17 Insertion time: 14:30 Results 08/29/17 04:47 08/29/17 04:47 CBC 08/28/17 08/29/17 Range/Units 15:49 04:47 WBC 11.3 H 9.8 (4.5-11.0) T/MM3 RBC 3.92 L 4.16 L (4.50-5.90) M/MM3 Hgb 11.9 L 12.5 L (13.5-17.5) GM/DL Hct 39.3 L 41.8 (41-53) % Plt Count 194 D 179 (130-400) T/MM3 Neut # (Auto) Not performed 8.2 H Lymph # (Auto) Not performed 0.9 L Greer # (Auto) Not performed 0.3 Eos # (Auto) Not performed 0.2 Baso # (Auto) Not performed 0.0 Comprehensive Metabolic Panel 08/28/17 08/29/17 Range/Units 16:37 04:47 Sodium 157 H 159 H (134-144) MEQ/L Potassium 3.4 L 3.7 (3.6-5) MEQ/L Chloride 115 H 114 H (98-107) MEQ/L Carbon Dioxide 32 H 33 H (22-30) MEQ/L BUN 35.0 H 40.0 H (9-20) MG/DL Creatinine 1.3 1.3 (0.8-1.5) MG/DL Glucose 189 H 269 H (75-110) MG/DL Calcium 8.5 8.4 (8.4-10.2) MG/DL Albumin 3.2 L (3.5-5.0) G/DL Intake and Output 08/29/17 08/29/17 08/29/17 06:59 14:59 22:59 Intake Total 798.871 / 798.871 518.278 / 518.278 Output Total 970 / 970 423 / 423 Balance -171.129 / -171.129 95.278 / 95.278 Intake: IV 398.871 / 398.871 318.278 / 318.278 Cefazolin 1 g In Ns 100 100 / 100 100 / 100 ml @ 200 mls/hr IV Q8HR [facility] Rx#:[id number] FentaNYL 1,000 mcg In Ns 98.75 / 98.75 69.00 / 69.00 100 ml @ Per Protocol IV .Q0M PRN Rx#:[id number] POTASSIUM PHOSPHATE (mMol 127.50 / 127.50 102 / 102 ) 30 mmol In D5w 500 ml @ 17 mls/hr IV .Q24H [facility] Rx#:[id number] Propofol 1,000 mg In 100 72.621 / 72.621 47.278 / 47.278 ml @ 5 MCG/KG/MIN 3.09 mls/hr IV .Q24H PRN Rx#: [id number] Tube Feeding 0 / 0 0 / 0 Left Nare 0 / 0 0 / 0 Intake, Gastric Tube 400 / 400 200 / 200 Irrigant Amount Left Nare 400 / 400 200 / 200 Output: Urine Amount (Catheter) 970 / 970 423 / 423 Other: Urine Appearance Clear Clear Urine Color Yellow Yellow Weight 218 lb 11.177 oz Patient Weight 08/30/17 06:59 Weight 218 lb 11.177 oz Abnormal Lab Results 08/28/17 08/28/17 08/28/17 15:49 16:37 17:00 WBC 11.3 H RBC 3.92 L Hgb 11.9 L Hct 39.3 L MCV 100.3 H MCH 30.4 MCHC 30.3 L RDW Std Deviation 52.1 H Plt Count 194 D MPV 12.3 Immature Gran % (Auto) Not performed Neut % (Auto) Not performed Lymph % (Auto) Not performed Greer % (Auto) Not performed Eos % (Auto) Not performed Baso % (Auto) Not performed Neut # (Auto) Not performed Lymph # (Auto) Not performed [place] # (Auto) Not performed Eos # (Auto) Not performed Baso # (Auto) Not performed Abs Immat Gran (auto) Not performed Neutrophils % (Manual) 78.0 H Band Neutrophils % 2.0 D Lymphocytes % (Manual) 12.0 L Monocytes % (Manual) 4.0 Eosinophils % (Manual) 1.0 Metamyelocytes % 1.0 H Myelocytes % 2.0 H Neutrophils # (Manual) 8.8 H Band Neutrophils # 0.2 Lymphocytes # (Manual) 1.4 Monocytes # (Manual) 0.5 Eosinophils # (Manual) 0.1 Metamyelocytes # 0.1 Myelocytes # 0.2 RBC Morph Comment Normal ABG pH 7.370 ABG pCO2 57 H ABG pO2 60 L ABG HCO3 33 H ABG Total CO2 34.7 H ABG O2 Saturation 90.0 L ABG Base Excess 6.1 H O2 Delivery Method Vent, adult % Turbidity < 20 Sodium 157 H Potassium 3.4 L Chloride 115 H Carbon Dioxide 32 H Anion Gap 10 BUN 35.0 H Creatinine 1.3 GFR Calculation 54 BUN/Creatinine Ratio 27 H Glucose 189 H Glucometer Calculated Osmolality 314 H Calcium 8.5 Phosphorus Magnesium Icterus Index < 2 Albumin Specimen Hemolysis < 15 Adenovirus (PCR) B.parapertussis DNA PCR C. pneumoniae DNA (PCR) Coronavirus OC43 (PCR) Coronavirus HKU1 (PCR) Coronavirus 229E (PCR) Coronavirus NL63 (PCR) Human Metapneumovir PCR Influenza Type A (PCR) Influenza Type B (PCR) M. pneumoniae (PCR) Parainfluenza 1 (PCR) Parainfluenza 2 (PCR) Parainfluenza 3 (PCR) Parainfluenza 4 (PCR) RSV (PCR) Entero/Rhino (PCR) 08/28/17 08/29/17 08/29/17 20:02 04:47 04:47 WBC 9.8 RBC 4.16 L Hgb 12.5 L Hct 41.8 MCV 100.5 H MCH 30.0 MCHC 29.9 L RDW Std Deviation 51.8 H Plt Count 179 MPV 11.2 Immature Gran % (Auto) 3.0 H Neut % (Auto) 83.4 H Lymph % (Auto) 9.0 L Greer % (Auto) 2.9 Eos % (Auto) 1.5 Baso % (Auto) 0.2 Neut # (Auto) 8.2 H Lymph # (Auto) 0.9 L Greer # (Auto) 0.3 Eos # (Auto) 0.2 Baso # (Auto) 0.0 Abs Immat Gran (auto) 0.29 H Neutrophils % (Manual) Band Neutrophils % Lymphocytes % (Manual) Monocytes % (Manual) Eosinophils % (Manual) Metamyelocytes % Myelocytes % Neutrophils # (Manual) Band Neutrophils # Lymphocytes # (Manual) Monocytes # (Manual) Eosinophils # (Manual) Metamyelocytes # Myelocytes # RBC Morph Comment ABG pH ABG pCO2 ABG pO2 ABG HCO3 ABG Total CO2 ABG O2 Saturation ABG Base Excess O2 Delivery Method Turbidity < 20 Sodium 159 H Potassium 3.7 Chloride 114 H Carbon Dioxide 33 H Anion Gap 12 BUN 40.0 H Creatinine 1.3 GFR Calculation 54 BUN/Creatinine Ratio 31 H Glucose 269 H Glucometer 203 Calculated Osmolality 324 H Calcium 8.4 Phosphorus 2.5 Magnesium 2.7 H D Icterus Index < 2 Albumin 3.2 L Specimen Hemolysis 18 Adenovirus (PCR) B.parapertussis DNA PCR C. pneumoniae DNA (PCR) Coronavirus OC43 (PCR) Coronavirus HKU1 (PCR) Coronavirus 229E (PCR) Coronavirus NL63 (PCR) Human Metapneumovir PCR Influenza Type A (PCR) Influenza Type B (PCR) M. pneumoniae (PCR) Parainfluenza 1 (PCR) Parainfluenza 2 (PCR) Parainfluenza 3 (PCR) Parainfluenza 4 (PCR) RSV (PCR) Entero/Rhino (PCR) 08/29/17 08/29/17 08/29/17 06:04 10:08 10:15 WBC RBC Hgb Hct MCV MCH MCHC RDW Std Deviation Plt Count MPV Immature Gran % (Auto) Neut % (Auto) Lymph % (Auto) Greer % (Auto) Eos % (Auto) Baso % (Auto) Neut # (Auto) Lymph # (Auto) Greer # (Auto) Eos # (Auto) Baso # (Auto) Abs Immat Gran (auto) Neutrophils % (Manual) Band Neutrophils % Lymphocytes % (Manual) Monocytes % (Manual) Eosinophils % (Manual) Metamyelocytes % Myelocytes % Neutrophils # (Manual) Band Neutrophils # Lymphocytes # (Manual) Monocytes # (Manual) Eosinophils # (Manual) Metamyelocytes # Myelocytes # RBC Morph Comment ABG pH ABG pCO2 ABG pO2 ABG HCO3 ABG Total CO2 ABG O2 Saturation ABG Base Excess O2 Delivery Method Turbidity Sodium Potassium Chloride Carbon Dioxide Anion Gap BUN Creatinine GFR Calculation BUN/Creatinine Ratio Glucose Glucometer 261 267 Calculated Osmolality Calcium Phosphorus Magnesium Icterus Index Albumin Specimen Hemolysis Adenovirus (PCR) Negative B.parapertussis DNA PCR Negative C. pneumoniae DNA (PCR) Negative Coronavirus OC43 (PCR) Negative Coronavirus HKU1 (PCR) Negative Coronavirus 229E (PCR) Negative Coronavirus NL63 (PCR) Negative Human Metapneumovir PCR Negative Influenza Type A (PCR) Negative Influenza Type B (PCR) Negative M. pneumoniae (PCR) Negative Parainfluenza 1 (PCR) Negative Parainfluenza 2 (PCR) Negative Parainfluenza 3 (PCR) Negative Parainfluenza 4 (PCR) Negative RSV (PCR) Negative Entero/Rhino (PCR) Negative - Imaging and Cardiology Imaging & Cardiology Narrative: Date of Exam: 08/29/17 Ordering Provider: Yumiko Amos APRN Type of Exam(s): XR chest 1V Reason for Exam(s): Respiratory Failure Indication: Respiratory Failure PROCEDURE: XR chest 1V: Encounter: Initial Comparison: August 28, 2017 Findings: Endotracheal tube appears stable in position. Dobbhoff tube noted, the tip is not included on this image. Severe bilateral airspace consolidation is not significantly changed. No pneumothorax seen on this semiupright view. Heart size and mediastinal contours are stable. Impression: Stable severe bilateral airspace disease. 08/29/17 15:09 08/29/17 15:10 Date of Exam: 08/29/17 Ordering Provider: Dionisio Madrid MD Type of Exam(s): XR KUB Reason for Exam(s): Dobhoff location Indication: Dobhoff location PROCEDURE: XR KUB: Encounter: Initial Comparison: August 28, 2017 Findings: Motion artifact limits the exam. Dobbhoff tube tip is difficult to precisely visualize but appears to have advanced, now projecting over the second portion of the duodenum. This appears to be obscured by the patient's lumbar spine hardware. Overall nonobstructive bowel gas pattern with minimal bowel gas present. Impression: Dobbhoff tube has apparently advanced into the duodenum. Assessment and Plan - Assessment and Plan (1) Severe sepsis Status: Acute (2) Aspiration pneumonia Status: Acute (3) Acute respiratory failure with hypoxia Status: Acute (4) Atherosclerotic heart disease of [place] coronary artery without angina pectoris Status: Chronic (5) Dilated cardiomyopathy Status: Chronic (6) Aortic ectasia Status: Chronic (7) Atherosclerosis of [place] artery of both lower extremities Status: Chronic (8) Essential (primary) hypertension Status: Chronic (9) Mixed hyperlipidemia Status: Chronic (10) Acute on chronic diastolic (congestive) heart failure Status: Acute - Assessment and Plan Severe sepsis per attending Aspiration pneumonia per attending Acute respiratory failure with hypoxia Check D Dimer 495 - CTA to rule out pulmonary emboli Acute on chronic diastolic (congestive) heart failure Diuresing well with essentially no improvement in hypoxia Atherosclerotic heart disease of [place] coronary artery without angina pectoris Dilated cardiomyopathy Aortic ectasia Atherosclerosis of [place] artery of both lower extremities Essential (primary) hypertension Mixed hyperlipidemia 08/27/17 CTA negative for PE Decrease Lasix to 40mg Q12H 08/28/17 No change in plan of care today. Continue to monitor fluid volume status. Hospital Course Summary Disclaimer: The visit summary below is not to be considered part of the above Progress Note. Hospital Course: 08/23/17 Impression Severe sepsis- manifestations include leukocytosis- 15.9, bandemia- 19%, aspiration pneumonia, elevated venous lactate- 2.4- present on admission Aspiration Pneumonia Acute hypoxic respiratory failure COPD with chronic O2 use at 2L Type II diabetes Hypertension Hyperlipidemia congestive heart failure. Peripheral vascular disease BPH Plan Admit patient to ICU for severe sepsis with aspiration pneumonia. Patient received IV Rocephin in the emergency room. Convert to Unasyn for further antimicrobial coverage of likely aspiration pneumonia. Blood cultures are pending. Will repeat venous lactate at 1335 as per sepsis protocol. Patient has received initial 1500 ml IV fluids while in the emergency room. He has received 1500ML thus far and remains hypotensive with blood pressure 87 systolic. Patient is to receive 30 ML per kilo, which would total 3300 ML total fluids as per protocol. Will then reevaluate status. If he remains hypotensive or has a map less than 65. Will need to consider adding vasopressors. Continue with oxygen as needed to maintain saturations. Schedule Duoneb QID and Pulmicort BID. Continue to monitor cardiac telemetry given cardiac history. At time of discharge medical care will return to primary care provider at the [facility] 08/24/17 Continue Unasyn for aspiration pneumonia; leukocytosis improving and bands have resolved. Reassess CXR in a.m. due to increased O2 demand-most recently on 15 L by high flow nasal cannula. Diuresis initiated as patient is typically on 80 mg of Lasix twice daily and fluid balance is positive since admission. BNP in a.m. IV fluids decreased to 50 mL per hour. Discussed BiPAP with patient due to marginal oxygenation-declined at present time. Ongoing anterior chest wall discomfort which may be due to the preceding fall or pneumonia; troponin/EKG unremarkable. Blood pressure/blood sugar stable overnight. 08/25/17 Continue Unasyn for aspiration pneumonia; leukocytosis/cough/sputum improving and bands have resolved. CXR today with pulmonary edema-IV fluids discontinued, home diuretic resumed with supplemental IV doses given today. Due to worsening respiratory symptoms and hypoxia BiPAP has been initiated. Will consult Dr. Rivers in a.m.; anticipate repeat echo and less done recently in the outpatient setting. Episodic hypertension-likely correlates with respiratory distress. No modifications in blood pressure regimen at this time. Hope to have PT/OT evaluate patient tomorrow if respiratory status permits; multiple medications may be contributing to fall risk. Convert to full liquid diet per patient request with addition of nutritional supplements-too short of breath to eat solid food. Unclear if patient has underlying spinal stenosis-medications suggest neuropathy. Critically ill with combined heart failure and hypoxic respiratory failure due to aspiration pneumonia. 08/26/17 Persistent/worsening hypoxia overnight requiring increased FiO2 to 100% on BiPAP. PCO2 unchanged but patient fatiguing by exam. Decision made early afternoon to intubate patient when it became necessary to increase expiratory pressure with BiPAP in an attempt to improve oxygen saturation despite FiO2 of 100%. Intubated by anesthesia at bedside-thick sputum plugs present in upper airway. Dr. Madrid consulted for assistance managing ventilator. Hypertonic saline added to breathing treatments, will require frequent suctioning. Antibiotics expanded for healthcare associated coverage due to severity of illness although patient lives privately. Reculture sputum. Cardiology consulted due to heart failure/?syncope. Modest elevation d-dimer-for CTA when able to do so. Hx PE-brother only aware of a single prior event Postintubation blood pressures low-fluid balance negative over the past 48 hours , fluid boluses being administered now. Lasix dose decreased. <Ted Rivers - Last Filed: 09/03/17 08:03> Exam Vital signs: Temperature 98.1 F 08/29/17 15:45 Pulse Rate 0 L 08/29/17 18:27 Respiratory Rate 0 L 08/29/17 18:27 Blood Pressure 0/0 08/29/17 18:27 Pulse Oximetry 0 L 08/29/17 18:27 - Urinary Catheter Management Urethral Cath placed during this visit: no Results 08/29/17 04:47 08/29/17 04:47 Assessment and Plan - Assessment and Plan (1) Atherosclerotic heart disease of [place] coronary artery without angina pectoris Status: Chronic (2) Dilated cardiomyopathy Status: Chronic (3) Aortic ectasia Status: Chronic (4) Atherosclerosis of [place] artery of both lower extremities Status: Chronic (5) Essential (primary) hypertension Status: Chronic (6) Mixed hyperlipidemia Status: Chronic (7) Severe sepsis Status: Acute (8) Aspiration pneumonia Status: Acute (9) Acute respiratory failure with hypoxia Status: Acute (10) Acute on chronic diastolic (congestive) heart failure Status: Acute - Attestation Attestation Narrative: 09/03/17 08:03 Recommendation After examining the patient I agree with the above assessment. I am involved in the formulation of the patient's plan of care. Hospital Course Summary Disclaimer: The visit summary below is not to be considered part of the above Progress Note.
[2017-08-29 15:51] VITALS: TEMP 98.1
--- NOTE | 2017-08-29 16:23 | Pulmonology Progress Note ---
Subjective Principal diagnosis: pulm edema/ CHF Interval history: remains on vent. returned to prone position early AM. On ACPC vent, IP 12, Vte up to 1000 ML. Peep 17.5, Fio2 100. Spo2 is 87%. BP stable. Now on propofol He is now DNR per Dr Duque Exam Vital signs: Temperature 98.1 F 08/29/17 15:45 Pulse Rate 101 H 08/29/17 15:45 Respiratory Rate 21 08/29/17 15:45 Blood Pressure 110/82 08/29/17 15:45 Pulse Oximetry 91 08/29/17 15:45 - Constitutional Comments: intubated, on mech vent. sedated - Routine HEENT Exam Head: Present: normocephalic - Routine Neck Exam Present: supple - Routine Respiratory Exam Present: patient mechanically ventilated, decreased breath sounds, diminished air movement - Routine Cardiovascular Exam Present: RRR - Routine Abdominal Exam Present: soft - Routine Extremities Exam Present: cyanosis. Absent: clubbing, edema - Routine Skin Exam Present: cyanosis. Absent: rash - Urinary Catheter Management Urethral Cath placed during this visit: yes Urethral indwelling: Yes Insertion date: 08/24/17 Insertion time: 14:30 Assessment and Plan (1) Acute respiratory failure with hypoxia Status: Acute Assessment and plan: continue prone ventilation strategy. Consider Bilevel ventilation if hypoxemia continues continue low dose steroids for ARDS. prognosis guarded. Current Visit: Yes (2) Aspiration pneumonia Status: Acute Assessment and plan: Klebsiella pna on cultures. well-covered with antibiotics Current Visit: Yes (3) Severe sepsis Status: Acute Assessment and plan: not requiring pressor therapy. remains on antibiotics. Current Visit: Yes - Assessment and Plan Acute on Chronic Hypoxic Respiratory Failure Aspiration Pneumonia Sepsis- sputum cx + Klebsiella COPD A/C Diastolic HF 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 ABG 7.37/56/54, continued hypoxemia, slightly improved with vent adjustment. Will start proning protocol. Patient currently with NG, will have dobhoff placed to decrease risk of aspiration. If proning does not improve oxygenation, may require BiLevel. Resting comfortably on fentanyl gtt with prn versed. Currently WBC normal, febrile 101, CXR with slightly improved RLL consolidation still with diffuse infiltrates. Procal 5.77 , now 2.46, currently on ancef and Levaquin s/p cefepime and vanco. Sputum cx + Klebsiella. rechecking sputum secondary to continued fevers. Currently getting lasix 40 BID with good UOP-500/24hr. BUN and Cr up slightly, Na 155, increased free H2O per NG per primary along with D5 drip. Kcl and P low, replacing per primary. Continue to follow. On BT's with Pulmicort BID, a/a q 4hrs, 3% q4 hrs. Add Solumedrol 50mg IV q 8hrs. Continue with daily CXR and follow closely. ABG in 4 hrs. - Time Spent With Patient Total time spent is greater than 50% in coordination of care (as documented) at patient's floor/unit and/or counseling patient: 25 - 35 minutes
[2017-08-29] MEDS: D5W IV SCH (17:27)
[2017-08-29] MEDS: POTASSIUM PHOSPHATE IV SCH (17:27)
[2017-08-29 18:52] VITALS: BP 0/0; PULSE 0; RESP 0; O2SAT 0
--- NOTE | 2017-08-29 22:20 | Discharge Summary ---
Discharge Summary- Blank Discharge Summary: Mr. Braxton was hospitalized on 08/23/17 and on 08/29/17. Please refer to the progress note of 08/29/17 for details of terminal events. In brief the patient was hospitalized with severe sepsis after developing pneumonia following a syncopal event with emesis. He was treated for aspiration pneumonia and subsequently found to have Klebsiella pneumonia by sputum culture. Extensive infiltrates developed suggesting pulmonary edema or ARDS. The patient progressed rapidly from nasal cannula oxygen to high flow maximal nasal cannula O2 to BiPAP and was subsequently intubated after stating he did not want to be intubated for more than a few days to get better. He continued to require maximal support with high expiratory pressures and FiO2 of 100% over the next 4 days. Aggressive diuresis did not improve oxygenation and dense infiltrates persisted bilaterally. Prognosis was discussed with his brothers in conjunction with the patient's stated wishes that ventilatory support be utilized only short -term. Both brothers were well aware of the patient's wishes and subsequently requested that he be made a DO NOT RESUSCITATE, extubated, and kept comfortable for whatever time he had. The patient was extubated on 08/29 at 1820 and was pronounced at 1827 with both brothers at the bedside. Cause of : Acute hypoxic respiratory failure ARDS Klebsiella pneumonia Comorbid conditions: COPD, diabetes mellitus, congestive heart failure. History of tobacco use
[2017-08-30] MEDS ORDERED: FUROSEMIDE 40 MG/4 ML INJECTION IVP SCH (09:00)
== END 2017-08-29 20:47 | disposition expired | DRG 871 ==
LOC: ED 08:44 → SUATTDRO 11:30 → CCU 11:30
PROVIDERS: ADMIT Internal Medicine; ATTEND Internal Medicine